=== PATIENT | female | born 1980 | race Caucasian/White ===

== ENCOUNTER → 2017-06-22 | Outpatient (CLI) | payer BC ==
--- NOTE | 2017-06-22 14:29 | US ---
EXAMINATION TYPE: US thyroid st tissue head/neck DATE OF EXAM: 06/22/2017 COMPARISON: Previous study dated 06/20/2016. CLINICAL HISTORY: Thyroid nodule E04.1. GLAND SIZE: Right Lobe: 4.1 x 0.9 x 1.3 cm Overall Parenchyma: homogenous Left Lobe: 3.9 x 1.4 x 1.1 cm Overall Parenchyma: homogeneous Isthmus Thickness: 0.5 cm NODULES RIGHT: # of nodules measured on right: 1 1. 0.8 X 0.5 x 0.8 cm hypoechoic mixed nodule at the lower pole with well-defined margins; . This nodule is wider than tall and shows intranodular vascularity. Prior size: 0.8 x 0.6 x 0.7 cm LEFT: # of nodules measured on left: 0 ISTHMUS: # of nodules measured in the isthmus: 0 Bilateral neck scanned, no evidence of lymphadenopathy. Nodule as described IMPRESSION: STABLE RIGHT-SIDED THYROID NODULE.
== END | disposition home or self-care (01) ==
LOC: RADUSWWP 13:58
PROVIDERS: ATTEND Family Medicine
DX: E04.1 Nontoxic single thyroid nodule (principal)
CPT/HCPCS: 76536

== ENCOUNTER 2019-11-11 11:40 | Emergency (ER) | payer BC ==
[2019-11-11] MEDS ORDERED: SODIUM CHLORIDE 0.9% 1,000 ML IV STA ×2 (12:26)
[2019-11-11] MEDS ORDERED: KETOROLAC 30 MG/ML 1 ML VIAL IVP STA (12:26)
[2019-11-11] MEDS ORDERED: ORPHENADRINE 30 MG/ML 2 ML VIAL IVP STA (12:27)
[2019-11-11 12:46] LABS: Basophils # (A) 0.1 k/uL (0-0.2); Basophils % (A) 0 %; Eosinophils # (A) 0.2 k/uL (0-0.7); Eosinophils % (A) 1 %; HCT 44.2 % (34.0-46.0); HGB 14.4 gm/dL (11.4-16.0); Lymphocytes # (A) 1.2 k/uL (1.0-4.8); Lymphocytes % (A) 8 %; MCH 31.5 pg (25.0-35.0); MCHC 32.7 g/dL (31.0-37.0); MCV 96.4 fL (80.0-100.0); Mean Platelet Volume 8.2; Monocytes # (A) 0.4 k/uL (0-1.0); Monocytes % (A) 3 %; Neutrophils % (A) 86 %; Platelet Count 269 k/uL (150-450); RBC 4.59 m/uL (3.80-5.40); RDW 12.4 % (11.5-15.5); WBC 15.1 k/uL (3.8-10.6)
[2019-11-11 12:57] LABS: ALT 39 U/L (4-34); AST 37 U/L (14-36); African American GFR (CKD) >90 (>60 ml/min/1.73 sqM); Albumin 4.7 g/dL (3.5-5.0); Alkaline Phosphatase 96 U/L (38-126); Anion Gap 13 mmol/L; Blood Urea Nitrogen 17 mg/dL (7-17); Calcium 10.4 mg/dL (8.4-10.2); Carbon Dioxide 22 mmol/L (22-30); Chloride 104 mmol/L (98-107); Glucose 123 mg/dL (74-99); Non-African American GFR(CKD) 81 (>60 ml/min/1.73 sqM); Potassium 4.6 mmol/L (3.5-5.1); Sodium 139 mmol/L (137-145); Total Bilirubin 0.7 mg/dL (0.2-1.3)
--- NOTE | 2019-11-11 13:06 | ED ---
Back Pain HPI - General Chief Complaint: Back Pain/Injury Stated Complaint: Back Pain Time Seen by Provider: 11/11/19 12:07 Source: patient, RN notes reviewed, old records reviewed Limitations: no limitations - History of Present Illness Initial Comments: Patient's a 38-year-old female. She presents today for chief complaint of left- sided rib and back pain. Symptoms starting after a week of coughing. She is sinus with bronchitis. Patient states she was started on azithromycin and steroids. Patient states that she is not able take antibiotic as she discussed this recently. Patient states that over the past day due to coughing started also spasming and*pain in her left rib area. Patient denies any specific fevers or chills. She reports that the cough has been mildly productive. - Related Data Previous Rx's Medication Instructions Recorded Cyclobenzaprine [Flexeril] 10 mg PO TID #15 tab 11/11/19 [facility]-Q[facility]-Elm 6.25-5-10Mg/5Ml 5 ml PO Q4H 3 Days #90 ml 11/11/19 [Phenergan VC with Codeine] methylPREDNISolone Dose Pack 4 mg PO DIRECTED #21 package 11/11/19 [Medrol Dose Pack] Allergies Allergy/AdvReac Type Severity Reaction Status Date / Time sulfamethoxazole Allergy Nausea Verified 11/11/19 12:01 [From Bactrim] trimethoprim [From Bactrim] Allergy Nausea Verified 11/11/19 12:01 Review of Systems ROS Statement: Those systems with pertinent positive or pertinent negative responses have been documented in the HPI. ROS Other: All systems not noted in ROS Statement are negative. Past Medical History Past Medical History: No Reported History History of Any Multi-Drug Resistant Organisms: None Reported Past Surgical History: Appendectomy Past Psychological History: No Psychological Hx Reported Smoking Status: Never smoker Past Alcohol Use History: Occasional Past Drug Use History: None Reported General Exam - General Exam Comments Initial Comments: 38-year-old female. Alert and oriented. No distress. Limitations: no limitations General appearance: alert, in no apparent distress Head exam: Present: atraumatic, normocephalic, normal inspection Eye exam: Present: normal appearance, PERRL, EOMI. Absent: scleral icterus, conjunctival injection, periorbital swelling ENT exam: Present: normal exam, mucous membranes moist Neck exam: Present: normal inspection. Absent: tenderness, meningismus, lymphadenopathy Respiratory exam: Present: normal lung sounds bilaterally. Absent: respiratory distress, wheezes, rales, rhonchi, stridor Cardiovascular Exam: Present: regular rate, normal rhythm, normal heart sounds. Absent: systolic murmur, diastolic murmur, rubs, gallop, clicks GI/Abdominal exam: Present: soft, normal bowel sounds. Absent: distended, tenderness, guarding, rebound, rigid Extremities exam: Present: normal inspection Back exam: Present: normal inspection, tenderness (Patient has some tenderness over the left ribs. Patient has spasming over the left-sided paraspinal muscle.) Neurological exam: Present: alert, oriented X3, CN II-XII intact Psychiatric exam: Present: normal affect, normal mood Skin exam: Present: warm, dry, intact, normal color. Absent: rash Course Vital Signs 11/11/19 11/11/19 11:59 14:11 Temperature 98.5 F 98.2 F Pulse Rate 83 81 Respiratory 16 18 Rate Blood Pressure 126/87 122/74 O2 Sat by Pulse 94 L 98 Oximetry Medical Decision Making - Medical Decision Making This is a 38-year-old female presents with left-sided rib pain. Symptoms after coughing for the past week after being diagnosed with bronchitis. At this time Patient has some left-sided paraspinal muscle tenderness. Full workup was o btained. Negative d-dimer and EKG. Chest x-ray was unremarkable. She a mild leukocytosis but has been receiving steroid injection. Patient advised to be discharged with a short course of muscle accident temperature medication. I discussed that she had any worsening symptoms she denies return for reevaluation. All questions were answered and return parameters were discussed. - Lab Data Result diagrams: 11/11/19 12:35 11/11/19 12:35 Lab Results 11/11/19 11/11/19 11/11/19 Range/Units 12:35 12:35 12:35 WBC 15.1 H (3.8-10.6) k/uL RBC 4.59 (3.80-5.40) m/uL Hgb 14.4 (11.4-16.0) gm/dL Hct 44.2 (34.0-46.0) % MCV 96.4 (80.0-100.0) fL MCH 31.5 (25.0-35.0) pg MCHC 32.7 (31.0-37.0) g/dL RDW 12.4 (11.5-15.5) % Plt Count 269 (150-450) k/uL Neutrophils % 86 % Lymphocytes % 8 % Monocytes % 3 % Eosinophils % 1 % Basophils % 0 % Neutrophils # 13.0 H (1.3-7.7) k/uL Lymphocytes # 1.2 (1.0-4.8) k/uL Monocytes # 0.4 (0-1.0) k/uL Eosinophils # 0.2 (0-0.7) k/uL Basophils # 0.1 (0-0.2) k/uL PT 9.7 (9.0-12.0) sec INR 0.9 (<1.2) APTT 22.3 (22.0-30.0) sec D-Dimer 0.26 (<0.60) mg/L FEU Sodium 139 (137-145) mmol/L Potassium 4.6 (3.5-5.1) mmol/L Chloride 104 (98-107) mmol/L Carbon Dioxide 22 (22-30) mmol/L Anion Gap 13 mmol/L BUN 17 (7-17) mg/dL Creatinine 0.90 (0.52-1.04) mg/dL Est GFR (CKD-EPI)AfAm >90 (>60 ml/min/1.73 sqM) Est GFR (CKD-EPI)NonAf 81 (>60 ml/min/1.73 sqM) Glucose 123 H (74-99) mg/dL Calcium 10.4 H (8.4-10.2) mg/dL Magnesium 2.0 (1.6-2.3) mg/dL Total Bilirubin 0.7 (0.2-1.3) mg/dL AST 37 H (14-36) U/L ALT 39 H (4-34) U/L Alkaline Phosphatase 96 (38-126) U/L Troponin I (0.000-0.034) ng/mL Total Protein 8.0 (6.3-8.2) g/dL Albumin 4.7 (3.5-5.0) g/dL 11/11/19 Range/Units 12:35 WBC (3.8-10.6) k/uL RBC (3.80-5.40) m/uL Hgb (11.4-16.0) gm/dL Hct (34.0-46.0) % MCV (80.0-100.0) fL MCH (25.0-35.0) pg MCHC (31.0-37.0) g/dL RDW (11.5-15.5) % Plt Count (150-450) k/uL Neutrophils % % Lymphocytes % % Monocytes % % Eosinophils % % Basophils % % Neutrophils # (1.3-7.7) k/uL Lymphocytes # (1.0-4.8) k/uL Monocytes # (0-1.0) k/uL Eosinophils # (0-0.7) k/uL Basophils # (0-0.2) k/uL PT (9.0-12.0) sec INR (<1.2) APTT (22.0-30.0) sec D-Dimer (<0.60) mg/L FEU Sodium (137-145) mmol/L Potassium (3.5-5.1) mmol/L Chloride (98-107) mmol/L Carbon Dioxide (22-30) mmol/L Anion Gap mmol/L BUN (7-17) mg/dL Creatinine (0.52-1.04) mg/dL Est GFR (CKD-EPI)AfAm (>60 ml/min/1.73 sqM) Est GFR (CKD-EPI)NonAf (>60 ml/min/1.73 sqM) Glucose (74-99) mg/dL Calcium (8.4-10.2) mg/dL Magnesium (1.6-2.3) mg/dL Total Bilirubin (0.2-1.3) mg/dL AST (14-36) U/L ALT (4-34) U/L Alkaline Phosphatase (38-126) U/L Troponin I <0.012 (0.000-0.034) ng/mL Total Protein (6.3-8.2) g/dL Albumin (3.5-5.0) g/dL 11/11/19 13:05 EKG performed at 1250 shows sinus x-ray, otherwise normal EKG. Ventricular rate of 101 beats minute. Verbal 154 ms. QS duration 74 ms repeat continue to see 3:30/4 mL 4 ms. - Radiology Data Radiology results: report reviewed Rib x-ray shows no acute displaced rib fracture or chronic illnesses deformity. Chest x-rays negative for any acute cardiopulmonary process. Disposition Clinical Impression: Cough, Spasm of thoracic back muscle Disposition: HOME SELF-CARE Condition: Good Instructions (If sedation given, give patient instructions): Muscle Spasm (ED) Additional Instructions: Patient advised to take antibiotic and steroids as prescribed. Using a cough syrup and muscle x-rays as directed. Have close follow-up with your primary care physician. Return to the emergency department if any alarming signs or symptoms occur. Prescriptions: Cyclobenzaprine [Flexeril] 10 mg PO TID #15 tab methylPREDNISolone Dose Pack [Medrol Dose Pack] 4 mg PO DIRECTED #21 package [facility] 6.25-5-10Mg/5Ml [Phenergan VC with Codeine] 5 ml PO Q4H 3 Days #90 ml Is patient prescribed a controlled substance at d/c from ED?: Yes When asked, does pt state using other controlled substances?: No If prescribed controlled substance>3 days was MAPS reviewed?: Yes If opioid is for acute pain is fill amount 7 days or less?: Yes If Rx opioid, was Start Talking consent form obtained?: Yes Referrals: Catracho Sevilla DO [Primary Care Provider] - 1-2 days Time of Disposition: 13:42
[2019-11-11 13:07] LABS: D-Dimer 0.26 mg/L FEU (<0.60); INR 0.9 (<1.2); Partial Thromboplastin Time 22.3 sec (22.0-30.0); Prothrombin Time 9.7 sec (9.0-12.0)
--- NOTE | 2019-11-11 13:19 | XR ---
EXAMINATION TYPE: XR ribs LT DATE OF EXAM: 11/11/2019 COMPARISON: NONE HISTORY: Coughing and left rib pain TECHNIQUE: 2 views of the left ribs were obtained FINDINGS: No acute displaced fracture of the left ribs is seen. No focal consolidation of the left isabella ng. No chronic healed left rib fracture deformity. Tear soft tissues are unremarkable. IMPRESSION: No acute displaced left rib fracture or chronic healed fracture deformity.
--- NOTE | 2019-11-11 13:20 | XR ---
EXAMINATION TYPE: XR chest 2V DATE OF EXAM: 11/11/2019 COMPARISON: NONE HISTORY: Cough TECHNIQUE: Frontal and lateral views of the chest are obtained. FINDINGS: There is no focal air space opacity, pleural effusion, or pneumothorax seen. The cardiac silhouette size is within normal limits. The osseous structures are intact. IMPRESSION: No acute cardiopulmonary process.
[2019-11-11 14:12] VITALS: BP 122/74; PULSE 81; RESP 18; TEMP 98.2
== END 2019-11-11 14:12 | disposition home or self-care (01) ==
LOC: EC 11:40
DX: M62.830 Muscle spasm of back (principal); R05 Cough; R07.81 Pleurodynia; D72.829 Elevated white blood cell count, unspecified; Z87.09 Personal history of other diseases of the respiratory system; Z88.2 Allergy status to sulfonamides; Z88.1 Allergy status to other antibiotic agents
CPT/HCPCS: 36415; 85379; 80053; 83735; 84484; 85025; 85610; 85730; 71100; 71046; 99284; 96374; 96375; 96361; J2360; J1885

== ENCOUNTER 2021-09-06 07:59 | Day surgery (SDC) | payer BC ==
[2021-09-04 11:40] VITALS: BMI 28.9
[~2021-09-06 07:59] MED LIST: LACTATED RINGERS 1,000 ML IV SCH
[2021-09-06 08:46] VITALS: TEMP 96.1
[2021-09-06] MEDS ORDERED: PROPOFOL 10 MG/ML 20 ML VIAL IV ONE (08:56)
[2021-09-06] MEDS ORDERED: LIDOCAINE 1% INJ 10MG/ML (20 ML MDV) ONE (08:56)
--- NOTE | 2021-09-06 08:58 | P.HPIHPCON ---
History of Present Illness H&P Date: 09/06/21 40-year-old female presents today for upper endoscopy secondary to reflux. She states that she had reflux for the past year but recently it has worsened. She complains of nausea and vomiting in the morning. She has started omeprazole with some success. She has never had an upper endoscopy.. Consent for Procedure: I have explained the operation/procedure to the patient, including the risks, benefits, side effects, alternative therapies (including not receiving the pr oposed treatment or service), the likelihood of the patient achieving his/her goals, and potential recuperation problems for the procedure/sedation/analgesia, as well as any blood products, if indicated. I also explained to the patient the risks, benefits and side effects of the alternatives, as well as the risks related to not receiving the proposed procedure, care, treatment, or services. - Review of Systems All systems: negative Past Medical History Past Medical History: GERD/Reflux History of Any Multi-Drug Resistant Organisms: None Reported Past Surgical History: Appendectomy Past Anesthesia/Blood Transfusion Reactions: Motion Sickness Smoking Status: Never smoker - Past Family History Mother Family Medical History: Cancer Medications and Allergies Home Medications Medication Instructions Recorded Confirmed Type methylPREDNISolone Dose Pack 4 mg PO DIRECTED #21 package 11/11/19 09/06/21 Rx [Medrol Dose Pack] Naproxen 250 mg PO 09/06/21 History Allergies Allergy/AdvReac Type Severity Reaction Status Date / Time sulfamethoxazole Allergy Nausea Verified 09/06/21 08:48 [From Bactrim] trimethoprim [From Bactrim] Allergy Nausea Verified 09/06/21 08:48 Surgical - Exam Osteopathic Statement: *. No significant issues noted on an osteopathic structural exam other than those noted in the History and Physical/Consult. Vital Signs Temp Pulse Resp BP Pulse Ox 96.1 F L 92 16 119/80 97 09/06/21 08:46 09/06/21 08:46 09/06/21 08:46 09/06/21 08:46 09/06/21 08:46 - General well nourished, no distress - ENT normal mucosa, no hearing loss - Neck trachea midline - Respiratory normal respiratory effort - Abdomen Abdomen: soft, non tender Assessment and Plan Plan: 40-year-old female with GERD. Plan is for upper endoscopy. Risks, benefits and alternatives were provided to the patient. She did provide consent. Further recommendations after procedure.
--- NOTE | 2021-09-06 09:06 | P.PCN ---
Date of Procedure: 09/06/21 Preoperative Diagnosis: GERD Postoperative Diagnosis: Gastritis Hiatal hernia Procedure(s) Performed: EGD with biopsy Anesthesia: MAC Surgeon: Naty Jacob Pathology: other (Biopsies of duodenum, antrum, esophagus) Condition: stable Disposition: same day Indications for Procedure: 40-year-old female with GERD that has been worsening recently. Plan is for upper endoscopy. Risks, benefits and alternatives were provided to the patient. She did provide consent prior to attending the endoscopy suite. Operative Findings: Hiatal hernia Gastritis Description of Procedure: The patient was brought to the endoscopy suite and placed in left lateral de cubitus position and adequate sedation was achieved using conscious sedation. A bite block was placed and endoscope was placed in the oropharynx and advanced under endoscopic visualization. The endoscope was advanced through the esophagus into the stomach, through the gastric antrum and into the pylorus. The third portion of duodenum was visualized. The endoscope was then slowly withdrawn. The first portion of the duodenum was noted to have inflammatory changes. Biopsies were taken. The antrum was noted to have inflammatory changes. Biopsies were taken. The gastric body distended normally and the gastric folds appeared normal and flattened with insufflation. A retroflexed view of the fundus and GE junction revealed a mild hiatal hernia. The esophagus appeared endoscopically normal. Biopsies were taken. Excess air was removed and the scope was withdrawn and the procedure was completed. The patient was then sent to PACU in stable condition.
[2021-09-06 09:25] VITALS: BP 129/92; PULSE 76; RESP 16
== END 2021-09-06 09:46 | disposition home or self-care (01) ==
LOC: ORWHC2ENDO 07:59
PROVIDERS: ATTEND Surgery
DX: K29.50 Unspecified chronic gastritis without bleeding (principal); K44.9 Diaphragmatic hernia without obstruction or gangrene; K21.00 Gastro-esophageal reflux disease with esophagitis, without bleeding; Z88.2 Allergy status to sulfonamides; Z80.9 Family history of malignant neoplasm, unspecified
CPT/HCPCS: 81025; 88305; 43239; J2001; J2704

== ENCOUNTER 2024-08-09 08:45 | Inpatient (IN) | payer BC ==
--- NOTE | 2024-08-09 09:19 | ED ---
General Adult HPI - General Chief complaint: Abdominal Pain Stated complaint: vomitting Time Seen by Provider: 08/09/24 08:54 Source: patient Mode of arrival: ambulatory Limitations: no limitations - History of Present Illness Initial comments: Dictation was produced using [employer] dictation software. please excuse any grammatical, word or spelling errors. Chief Complaint: 43-year-old female presents with abdominal pain History of Present Illness: Patient is a 43-year-old female presents to the emergency department with abdominal pain patient states that her symptoms really started escalating last night. Patient has been having symptoms for the last 2 weeks. Has been having worsening nausea and vomiting. Patient is alcoholic drinks daily. Her drink of choice is typically vodka. Denies any fever chills or night sweats. The ROS documented in this emergency department record has been reviewed and confirmed by me. Those systems with pertinent positive or negative responses have been documented in the HPI. All other systems are other negative and/or noncontributory. - Related Data Home Medications Medication Instructions Recorded Confirmed Famotidine [Pepcid] 20 mg PO HS 08/09/24 08/09/24 Multivitamins, Thera [Multivitamin 1 tab PO DAILY 08/09/24 08/09/24 (formulary)] Allergies Allergy/AdvReac Type Severity Reaction Status Date / Time sulfamethoxazole Allergy Severe Verified 08/09/24 11:26 [From Bactrim] migraines, neck pain, stomach pain trimethoprim [From Bactrim] Allergy Severe Verified 08/09/24 11:26 migraines, neck pain, stomach pain Review of Systems ROS Statement: Those systems with pertinent positive or pertinent negative responses have been documented in the HPI. ROS Other: All systems not noted in ROS Statement are negative. Past Medical History Past Medical History: GERD/Reflux Additional Past Medical History / Comment(s): hernia History of Any Multi-Drug Resistant Organisms: None Reported Past Surgical History: Appendectomy Past Anesthesia/Blood Transfusion Reactions: Motion Sickness Past Psychological History: No Psychological Hx Reported Smoking Status: Never smoker Past Alcohol Use History: Abuse, Daily, Heavy Past Drug Use History: None Reported - Past Family History Mother Family Medical History: Cancer General Exam - General Exam Comments Initial Comments: PHYSICAL EXAM: General Impression: Alert and oriented x3, not in acute distress, tremulous HEENT: Normocephalic atraumatic, extra-ocular movements intact, pupils equal and reactive to light bilaterally, mucous membranes moist. Cardiovascular: Heart regular rate and rhythm Chest: Able to complete full sentences, no retractions, no tachypnea Abdomen: abdomen soft, n palpatory tenderness to the lower abdomen r, non- distended, no organomegaly Musculoskeletal: Pulses present and equal in all extremities, no peripheral edema Motor: no focal deficits noted Neurological: CN II-XII grossly intact, no focal motor or sensory deficits noted Skin: Intact with no visualized rashes Psych: Normal affect and mood Limitations: no limitations Course Vital Signs 08/09/24 08:49 Temperature 98.4 F Pulse Rate 125 H Respiratory 20 Rate Blood Pressure 122/73 O2 Sat by Pulse 98 Oximetry EKG Findings - EKG Comments: EKG Findings:: My EKG interpretation: Ventricular rate 121, sinus tachycardia,. 129, QRS 74, QTc 410. No AR prolongation, no QTC prolongation, no ST or T-wave changes noted. EKG compared to November 11, 2019 showing no changes. Overall, this EKG is unremarkable Medical Decision Making - Medical Decision Making Was pt. sent in by a medical professional or institution (, PA, HOT BILLET SHEAR OPERATOR, urgent care, hospital, or jail...) When possible be specific @ -No Did you speak to anyone other than the patient for history (EMS, parent, family, police, friend...)? What history was obtained from this source @ -No Did you review nursing and triage notes (agree or disagree)? Why? @ -I reviewed and agree with nursing and triage notes Were old charts reviewed (outside hosp., previous admission, EMS record, old EKG, old radiological studies, urgent care reports/EKG's, jail records)? Report findings @ -No old charts were reviewed Differential Diagnosis (chest pain, altered mental status, abdominal pain women, abdominal pain men, vaginal bleeding, musculoskeletal, weakness, fever, dyspnea, syncope, headache, dizziness, GI bleed, back pain, seizure, CVA, palpatations, mental health)? @ -Differential Abdominal Pain Women: Appendicitis, Cholecystitis, diverticulosis, ischemic bowel, pancreatitis, hepatitis, UTI, gastroenteritis, AAA, incarcerated hernia, bowel obstruction, constipation, inflammatory bowel, hepatitis, peptic ulcer disease, splenic infarction, perforated viscus, vulvitis, ovarian torsion, PID, kidney stone, placenta abruption, this is not meant to be an all-inclusive list EKG interpreted by me (3pts min.). @ -See above X-rays interpreted by me (1pt min.). @ -None done CT interpreted by me (1pt min.). @ -CT of the ab pelvis shows no acute processes U/S interpreted by me (1pt. min.). @ -None done What testing was considered but not performed or refused? (CT, X-rays, U/S, labs)? Why? @ -None What meds were considered but not given or refused? Why? @ -None Was smoking cessation discussed for >3mins.? @ -No Were there social determinants of health that impacted care today? How? (Homelessness, low income, unemployed, alcoholism, drug addiction, transportation, low edu. Level, literacy, decrease access to med. care, [facility], rehab)? @ -No Was there de-escalation of care discussed even if they declined (Discuss DNR or withdrawal of care, Hospice)? DNR status @ -No What co-morbidities impacted this encounter? (DM, HTN, Smoking, COPD, CAD, Cancer, CVA, ARF, Chemo, Hep., AIDS, mental health diagnosis, sleep apnea, morbid obesity)? @ -None Was patient admitted / discharged? Hospital course, mention meds given and route, prescriptions, significant lab abnormalities, going to OR and other pertinent info. @ -43-year-old female presents emergency department with chief complaint of abd ominal pain. Vital signs upon arrival shows tachycardia 125. Patient is withdrawing at the bedside. Her CIWA score is 9. Laboratory evaluation obtained. CBC is unremarkable. Coag panel is negative. Lactic acidosis severely elevated at 8.6. Magnesium 1.0. Patient given fluids and Parenteau m agnesium. Patient reevaluated at bedside 11:52 AM with improvement of symptoms. Patient will be admitted for medical monitoring, EtOH withdrawal treatment. Case discussed with Dr. Catracho Sevilla for admission Did you discuss the management of the patient with other professionals (professionals i.e. , PA, HOT BILLET SHEAR OPERATOR, lab, RT, psych nurse, social security benefits interviewer, analysis specialist, teacher, chief technology officer, family preservation caseworker)? Give summary @ -See above Was critical care preformed (if so, how long)? @ -No Undiagnosed new problem with uncertain prognosis? @ -No Drug Therapy requiring intensive monitoring for toxicity (Heparin, Nitro, Insulin, Cardizem)? @ -No Were any procedures done? @ -No Diagnosis/symptom? Acute, or Chronic, or Acute on Chronic? Uncomplicated (without systemic symptoms) or Complicated (systemic symptoms)? @ -Alcohol withdrawal Side effects of treatment? @ -No Exacerbation, Progression, or Severe Exacerbation? @ -No Poses a threat to life or bodily function? How? (Chest pain, [place], [place], pneumonia, PE, COPD, DKA, ARF, appy, cholecystitis, CVA, Diverticulitis, Homicidal, Suicidal, threat to staff... and all critical care pts) @ -No - Lab Data Result diagrams: 08/09/24 09:45 08/09/24 09:45 Lab Results 08/09/24 08/09/24 08/09/24 Range/Units 09:45 09:45 09:45 WBC 8.4 (3.8-10.6) k/uL RBC 4.00 (3.80-5.40) m/uL Hgb 14.8 (11.4-16.0) gm/dL Hct 44.2 (34.0-46.0) % MCV 110.3 H (80.0-100.0) fL MCH 36.9 H (25.0-35.0) pg MCHC 33.4 (31.0-37.0) g/dL RDW 14.0 (11.5-15.5) % Plt Count 188 (150-450) k/uL MPV 8.6 Macrocytosis Marked A PT 12.4 (10.0-12.5) sec INR 1.2 H (<1.2) APTT 24.4 (22.0-30.0) sec Sodium 137 (137-145) mmol/L Potassium 4.0 (3.5-5.1) mmol/L Chloride 94 L (98-107) mmol/L Carbon Dioxide 24 (22-30) mmol/L Anion Gap 19 mmol/L BUN 5 L (7-17) mg/dL Creatinine 0.63 (0.52-1.04) mg/dL Est GFR (CKD-EPI)AfAm >90 (>60 ml/min/1.73 sqM) Est GFR (CKD-EPI)NonAf >90 (>60 ml/min/1.73 sqM) Glucose 155 H (74-99) mg/dL Plasma Lactic Acid Kevin (0.7-2.0) mmol/L Calcium 10.7 H (8.4-10.2) mg/dL Magnesium 1.0 L (1.6-2.3) mg/dL Total Bilirubin 3.8 H (0.2-1.3) mg/dL AST 237 H (14-36) U/L ALT 61 H (4-34) U/L Alkaline Phosphatase 198 H (38-126) U/L Total Protein 7.8 (6.3-8.2) g/dL Albumin 4.4 (3.5-5.0) g/dL Lipase 275 (23-300) U/L Serum Alcohol <10 mg/dL 08/09/24 Range/Units 09:45 WBC (3.8-10.6) k/uL RBC (3.80-5.40) m/uL Hgb (11.4-16.0) gm/dL Hct (34.0-46.0) % MCV (80.0-100.0) fL MCH (25.0-35.0) pg MCHC (31.0-37.0) g/dL RDW (11.5-15.5) % Plt Count (150-450) k/uL MPV Macrocytosis PT (10.0-12.5) sec INR (<1.2) APTT (22.0-30.0) sec Sodium (137-145) mmol/L Potassium (3.5-5.1) mmol/L Chloride (98-107) mmol/L Carbon Dioxide (22-30) mmol/L Anion Gap mmol/L BUN (7-17) mg/dL Creatinine (0.52-1.04) mg/dL Est GFR (CKD-EPI)AfAm (>60 ml/min/1.73 sqM) Est GFR (CKD-EPI)NonAf (>60 ml/min/1.73 sqM) Glucose (74-99) mg/dL Plasma Lactic Acid Kevin 8.6 H* (0.7-2.0) mmol/L Calcium (8.4-10.2) mg/dL Magnesium (1.6-2.3) mg/dL Total Bilirubin (0.2-1.3) mg/dL AST (14-36) U/L ALT (4-34) U/L Alkaline Phosphatase (38-126) U/L Total Protein (6.3-8.2) g/dL Albumin (3.5-5.0) g/dL Lipase (23-300) U/L Serum Alcohol mg/dL Disposition Clinical Impression: Alcohol withdrawal Disposition: ADMITTED IP TO THIS [facility] Condition: Fair Referrals: Catracho Sevilla DO [Primary Care Provider] - 1-2 days Decision Time: 11:53
[2024-08-09] MEDS: ONDANSETRON 4 MG/2 ML VIAL IVP STA (09:39)
[2024-08-09] MEDS: SODIUM CHLORIDE 0.9% 1,000 ML IV STA (09:40)
[2024-08-09] MEDS: MORPHINE SULFATE 4 MG/ML SYRINGE IVP PRN (09:47)
[2024-08-09 10:19] LABS: Basophils % (A) 1 %; Eosinophils # (A) 0.1 k/uL (0-0.7); Eosinophils % (A) 1 %; HCT 44.2 % (34.0-46.0); HGB 14.8 gm/dL (11.4-16.0); Lymphocytes # (A) 1.1 k/uL (1.0-4.8); Lymphocytes % (A) 13 %; MCH 36.9 pg (25.0-35.0); MCHC 33.4 g/dL (31.0-37.0); MCV 110.3 fL (80.0-100.0); Macrocytosis Marked; Mean Platelet Volume 8.6; Monocytes # (A) 0.5 k/uL (0-1.0); Monocytes % (A) 6 %; Neutrophils # (A) 6.6 k/uL (1.3-7.7); Neutrophils % (A) 79 %; Platelet Count 188 k/uL (150-450); WBC 8.4 k/uL (3.8-10.6)
[2024-08-09 10:30] LABS: AST 237 U/L (14-36); African American GFR (CKD) >90 (>60 ml/min/1.73 sqM); Albumin 4.4 g/dL (3.5-5.0); Alcohol <10 mg/dL; Alkaline Phosphatase 198 U/L (38-126); Anion Gap 19 mmol/L; Blood Urea Nitrogen 5 mg/dL (7-17); Calcium 10.7 mg/dL (8.4-10.2); Carbon Dioxide 24 mmol/L (22-30); Chloride 94 mmol/L (98-107); Glucose 155 mg/dL (74-99); Lipase 275 U/L (23-300); Non-African American GFR(CKD) >90 (>60 ml/min/1.73 sqM); Sodium 137 mmol/L (137-145); Total Bilirubin 3.8 mg/dL (0.2-1.3); Total Protein 7.8 g/dL (6.3-8.2)
[2024-08-09 10:35] LABS: INR 1.2 (<1.2); Partial Thromboplastin Time 24.4 sec (22.0-30.0); Prothrombin Time 12.4 sec (10.0-12.5)
[2024-08-09 10:42] LABS: ALT 61 U/L (4-34)
[2024-08-09] MEDS ORDERED: LORazepam 2 MG/ML INJ IV PRN ×3 (10:49)
--- NOTE | 2024-08-09 10:57 | CT ---
EXAMINATION TYPE: CT abdomen pelvis w con CT DLP: 853.4 mGycm, Automated exposure control for dose reduction was used. DATE OF EXAM: 08/09/2024 10:45 AM COMPARISON: None CLINICAL INDICATION:Female, 43 years old with history of LLQ abdominal pain; LLQ abdominal pain TECHNIQUE: Standard CT of the abdomen and pelvis following the administration of 100 cc of Isovue 3 00 IV contrast material. Coronal and sagittal reformats were performed. FINDINGS: LOWER CHEST: Posterior dependent subsegmental atelectasis is noted. ABDOMEN LIVER: Enlarged and diffusely hypoattenuating. Measures 20.9 cm in CC dimension. GALLBLADDER AND BILE DUCTS: Layering increased densities within the lumen consistent with gallstones are present. No biliary ductal dilatation. PANCREAS: Unremarkable. SPLEEN: Unremarkable. ADRENAL GLANDS: Unremarkable. KIDNEYS AND URETERS: No evidence of hydronephrosis or renal calculus. The kidneys enhance symmetrical ly. Contrast is demonstrated within both collecting systems on the delayed phase. PELVIS BLADDER: Incompletely distended but grossly unremarkable. REPRODUCTIVE: Unremarkable. ABDOMEN & PELVIS STOMACH AND BOWEL: Stomach and duodenum are unremarkable. No focal bowel wall thickening or surroundi ng inflammatory changes. No diverticulosis identified. No evidence of bowel obstruction. Possible donna endectomy changes. PERITONEUM: No evidence of pneumoperitoneum or free fluid. VASCULATURE: No evidence of aortic aneurysm. MUSCULOSKELETAL: No acute osseous abnormalities LYMPH NODES: No gross evidence for lymphadenopathy. SOFT TISSUE/ABDOMINAL WALL: Unremarkable IMPRESSION: 1. No acute abdominal/pelvic process. 2. Cholelithiasis. 3. Hepatomegaly with marked steatosis.
[2024-08-09] MEDS: MAGNESIUM SULFATE-D5W PMX 1 GM in DEXTROSE/WATER 1 100ML.BAG IVPB SCH (11:23)
[2024-08-09] MEDS ORDERED: NALOXONE 0.4 MG/ML 1 ML VIAL IV PRN (11:48)
[2024-08-09] MEDS: SODIUM CHLORIDE 0.9% 1,000 ML IV SCH (12:42)
[2024-08-09 14:29] LABS: Appearance,Urine Clear (Clear); Bilirubin,Urine 1+ (Negative); Blood,Urine Negative (Negative); Color,Urine Yellow; Glucose,Urine (UA) Negative (Negative); Ketones,Urine Trace (Negative); Leukocyte Esterase,Urine Negative (Negative); Nitrite,Urine Negative (Negative); Protein,Urine Trace (Negative)
[2024-08-09] MEDS: ONDANSETRON 4 MG/2 ML VIAL IVP PRN (15:04)
[2024-08-09 15:05] LABS: Specific Gravity,Urine >1.050 (1.001-1.035)
[2024-08-10 10:48] LABS: ALT 45 U/L (4-34); AST 158 U/L (14-36); African American GFR (CKD) >90 (>60 ml/min/1.73 sqM); Albumin 3.7 g/dL (3.5-5.0); Albumin/Globulin Ratio 1.2; Alkaline Phosphatase 151 U/L (38-126); Anion Gap 9 mmol/L; Blood Urea Nitrogen 4 mg/dL (7-17); Calcium 9.2 mg/dL (8.4-10.2); Carbon Dioxide 28 mmol/L (22-30); Chloride 98 mmol/L (98-107); Glucose 126 mg/dL (74-99); Non-African American GFR(CKD) >90 (>60 ml/min/1.73 sqM); Potassium 3.8 mmol/L (3.5-5.1); Sodium 135 mmol/L (137-145); Total Bilirubin 4.4 mg/dL (0.2-1.3); Total Protein 6.7 g/dL (6.3-8.2)
[2024-08-10] MEDS: MULTIVITAMINS, THERA 1 EACH TAB PO SCH (11:13)
[2024-08-10] MEDS: FOLIC ACID 1 MG TAB PO SCH (11:13)
[2024-08-10] MEDS: THIAMINE 100 MG TAB PO SCH (11:13)
--- NOTE | 2024-08-10 14:44 | P.HPIM ---
History of Present Illness H&P Date: 08/10/24 Chief Complaint: Abdominal pain, EtOH abuse, DTs 43-year-old female with past medical history significant for gastroesophageal reflux disease, daily alcohol abuse and multiple other medical issues presented to the ER with complaints of abdominal pain progressing over the last couple weeks Chu by nausea and vomiting. Patient confirms daily vodka intake, 4-5 drinks nightly. Reports work stress. any chest pain, palpitations or shortness of breath. On admission, tachycardic, and active DTs, CIWA score 9, lactic acid 8.6 resolved with IV fluid hydration, early 1.8, magnesium 1, serum alcohol less than 10. UA reported 1+ bilirubin, trace ketones. T. bili 3.8, AST 237, ALT 61, alk phos 198, lipase 275. Glucose 155. Afebrile, WBC 8.4, hemoglobin 14.8, MCV 110, platelets 188, INR 1.2, sodium 137, potassium 4, renal function stable. EKG reported sinus tachycardia. CT of abdomen pelvis reported no acute abdominal/pelvic process, cholelithiasis, hepatomegaly with marked steatosis. Review of Systems ROS Statement: Those systems with pertinent positive or pertinent negative responses have been documented in the HPI. ROS Other: All systems not noted in ROS Statement are negative. Past Medical History Past Medical History: GERD/Reflux Additional Past Medical History / Comment(s): hernia History of Any Multi-Drug Resistant Organisms: None Reported Past Surgical History: Appendectomy Past Anesthesia/Blood Transfusion Reactions: Motion Sickness Past Psychological History: No Psychological Hx Reported Smoking Status: Never smoker Past Alcohol Use History: Abuse, Daily, Heavy Past Drug Use History: None Reported - Past Family History Mother Family Medical History: Cancer Medications and Allergies Home Medications Medication Instructions Recorded Confirmed Type Famotidine [Pepcid] 20 mg PO HS 08/09/24 08/09/24 History Multivitamins, Thera [Multivitamin 1 tab PO DAILY 08/09/24 08/09/24 History (formulary)] Allergies Allergy/AdvReac Type Severity Reaction Status Date / Time sulfamethoxazole Allergy Severe Verified 08/09/24 11:26 [From Bactrim] migraines, neck pain, stomach pain trimethoprim [From Bactrim] Allergy Severe Verified 08/09/24 11:26 migraines, neck pain, stomach pain Physical Exam Vitals: Vital Signs Temp Pulse Pulse Resp BP BP Pulse Ox 08/10/24 08:00 98.2 F 95 16 123/84 90 L 08/10/24 07:24 96 18 131/85 97 08/10/24 02:36 93 18 121/84 97 08/10/24 01:10 96 18 121/80 97 08/10/24 00:02 98.2 F 93 18 123/76 96 08/09/24 23:06 98.1 F 95 18 115/75 97 08/09/24 20:10 98.4 F 103 H 18 130/87 97 08/09/24 12:53 97.8 F 103 H 18 121/75 94 L PHYSICAL EXAM: VITAL SIGNS: [As above] GENERAL: Alert and oriented x 3, sitting up on stretcher, HEENT: Normocephalic, atraumatic, conjunctivae normal. eyes normal. NECK: Supple, no JVD. No thyroid enlargement. No LNs CARDIOVASCULAR: S1, S2 regular. No murmur RESPIRATION: Unlabored, equal air entry, essentially clear to auscultation bilateral bases diminished. ABDOMEN: Soft, nondistended, nontender . No guarding. no masses palpable. No ascites, No hepatosplenomegaly.+BS LEGS: No edema. no swelling NERVOUS SYSTEM: Cranial N 2-12 grossly normal. Strength and sensation grossly intact. Tremulous Skin: Warm and dry, no rash Results CBC & Chem 7: 08/09/24 09:45 08/10/24 05:39 Labs: Abnormal Lab Results - Last 24 Hours (Table) 08/09/24 08/09/24 08/09/24 Range/Units 09:45 09:45 09:45 MCV 110.3 H (80.0-100.0) fL MCH 36.9 H (25.0-35.0) pg Macrocytosis Marked A INR 1.2 H (<1.2) Chloride 94 L (98-107) mmol/L BUN 5 L (7-17) mg/dL Glucose 155 H (74-99) mg/dL Plasma Lactic Acid Kevin (0.7-2.0) mmol/L Calcium 10.7 H (8.4-10.2) mg/dL Magnesium 1.0 L (1.6-2.3) mg/dL Total Bilirubin 3.8 H (0.2-1.3) mg/dL AST 237 H (14-36) U/L ALT 61 H (4-34) U/L Alkaline Phosphatase 198 H (38-126) U/L Ur Specific [place] (1.001-1.035) Urine Protein (Negative) Urine Ketones (Negative) Urine Bilirubin (Negative) 08/09/24 08/09/24 08/09/24 Range/Units 09:45 13:16 14:10 MCV (80.0-100.0) fL MCH (25.0-35.0) pg Macrocytosis INR (<1.2) Chloride (98-107) mmol/L BUN (7-17) mg/dL Glucose (74-99) mg/dL Plasma Lactic Acid Kevin 8.6 H* 4.9 H* (0.7-2.0) mmol/L Calcium (8.4-10.2) mg/dL Magnesium (1.6-2.3) mg/dL Total Bilirubin (0.2-1.3) mg/dL AST (14-36) U/L ALT (4-34) U/L Alkaline Phosphatase (38-126) U/L Ur Specific [place] >1.050 H (1.001-1.035) Urine Protein Trace H (Negative) Urine Ketones Trace H (Negative) Urine Bilirubin 1+ H (Negative) 08/09/24 08/09/24 08/09/24 Range/Units 16:09 19:09 22:27 MCV (80.0-100.0) fL MCH (25.0-35.0) pg Macrocytosis INR (<1.2) Chloride (98-107) mmol/L BUN (7-17) mg/dL Glucose (74-99) mg/dL Plasma Lactic Acid Kevin 4.3 H* 4.4 H* 2.5 H* (0.7-2.0) mmol/L Calcium (8.4-10.2) mg/dL Magnesium (1.6-2.3) mg/dL Total Bilirubin (0.2-1.3) mg/dL AST (14-36) U/L ALT (4-34) U/L Alkaline Phosphatase (38-126) U/L Ur Specific [place] (1.001-1.035) Urine Protein (Negative) Urine Ketones (Negative) Urine Bilirubin (Negative) 08/10/24 Range/Units 02:11 MCV (80.0-100.0) fL MCH (25.0-35.0) pg Macrocytosis INR (<1.2) Chloride (98-107) mmol/L BUN (7-17) mg/dL Glucose (74-99) mg/dL Plasma Lactic Acid Kevin 3.5 H* (0.7-2.0) mmol/L Calcium (8.4-10.2) mg/dL Magnesium (1.6-2.3) mg/dL Total Bilirubin (0.2-1.3) mg/dL AST (14-36) U/L ALT (4-34) U/L Alkaline Phosphatase (38-126) U/L Ur Specific [place] (1.001-1.035) Urine Protein (Negative) Urine Ketones (Negative) Urine Bilirubin (Negative) Assessment and Plan Assessment: Abdominal pain secondary to daily alcohol abuse, DTs Hyperbilirubinemia with elevated LFTs Lactic acidosis, resolved with IV fluid hydration Hypomagnesemia Cholelithiasis Hepatomegaly, marked steatosis Gastroesophageal reflux disease Plan: Continue on current medication regimen ,monitoring and symptomatic treatment. Attain IV fluid hydration, CIWA protocol-current CIWA score 3. Alcohol abstinence reinforced. Repeat T. bili increased, continue monitoring ,repeat in a.m. Community rehab resources discussed, patient currently declining-states she would like to try on her own. The impression and plan of care has been dictated as directed. : I performed a history and examination of this patient, discussed the same with the dictator. I agree with the dictator's note ,documented as a scribe. Any additional findings or plans will be noted.
[2024-08-10] MEDS: FAMOTIDINE 20 MG TAB PO SCH (21:57)
[2024-08-11 07:34] VITALS: BP 128/79; PULSE 93; RESP 16; TEMP 98
[2024-08-11 09:30] LABS: ALT 39 U/L (8-44); AST 150 U/L (13-35); Albumin 3.3 g/dL (3.8-4.9); Albumin/Globulin Ratio 1.32 Ratio (1.60-3.17); Alkaline Phosphatase 140 U/L (41-126); BUN/Creat Ratio 6.86 Ratio (12.00-20.00); Blood Urea Nitrogen 4.8 mg/dL (9.0-27.0); Calcium 8.8 mg/dL (8.7-10.3); Carbon Dioxide 26.7 mmol/L (21.6-31.8); Chloride 102 mmol/L (96-109); Globulin 2.5 g/dL (1.6-3.3); Glucose 92 mg/dL (70-110); Potassium 3.8 mmol/L (3.5-5.5); Sodium 139 mmol/L (135-145); Total Bilirubin 3.4 mg/dL (0.3-1.2); Total Protein 5.8 g/dL (6.2-8.2)
--- NOTE | 2024-08-11 10:13 | P.DS ---
Providers Date of admission: 08/09/24 11:50 Expected date of discharge: 08/11/24 Attending physician: Catracho Sevilla Primary care physician: Catracho Sevilla [facility] Course: Abdominal pain secondary to daily alcohol abuse, DTs Hyperbilirubinemia ,elevated LFTs Lactic acidosis, resolved with IV fluid hydration Hypomagnesemia,resolved Cholelithiasis,further follow-up in clinic with PCP Hepatomegaly, marked steatosis Gastroesophageal reflux disease Hospital course: 43-year-old female with past medical history significant for gastroesophageal reflux disease, daily alcohol abuse and multiple other medical issues presented to the ER with complaints of abdominal pain progressing over the last couple weeks Chu by nausea and vomiting. Patient confirms daily vodka intake, 4-5 drinks nightly. Reports work stress. any chest pain, palpitations or shortness of breath. On admission, tachycardic, and active DTs, CIWA score 9, lactic acid 8.6 resolved with IV fluid hydration, early 1.8, magnesium 1, serum alcohol less than 10. UA reported 1+ bilirubin, trace ketones. T. bili 3.8, AST 237, ALT 61, alk phos 198, lipase 275. Glucose 155. Afebrile, WBC 8.4, hemoglobin 14.8, MCV 110, platelets 188, INR 1.2, sodium 137, potassium 4, renal function stable. EKG reported sinus tachycardia. CT of abdomen pelvis reported no acute abdominal/pelvic process, cholelithiasis, hepatomegaly with marked steatosis. maintained onIV fluid hydration, CIWA protocol-current CIWA score 3. Alcohol abstinence reinforced. Repeat T. bili increased, continue monitoring ,repeat in a.m. Community rehab resources discussed, patient currently declining-states she would like to try on her own. yesterday repeat CMP reported T bili trending up to 4.4. This a.m., T bili trending down to 3.4, AST 150, ALT 39, alk phos 140. Denies abdominal pain. CIWA score 0. discussed CT reporting gallstones, it will be further addressed outpatient in clinic. Denies nausea vomiting or diarrhea. Ambulating, tolerating exertion well. alcohol abstinence reinforced.patient will be discharged home today in stable condition with guarded prognosis. The impression and plan of care has been dictated as directed. : I performed a history and examination of this patient, discussed the same with the dictator. I agree with the dictator's note ,documented as a scribe. Any additional findings or plans will be noted. Patient Condition at Discharge: Stable Plan - Discharge Summary Discharge Rx Participant: No New Discharge Prescriptions: New Folic Acid 1 mg PO DAILY tab Thiamine [Vitamin B-1] 100 mg PO DAILY tab Continue Multivitamins, Thera [Multivitamin (formulary)] 1 tab PO DAILY Famotidine [Pepcid] 20 mg PO HS Discharge Medication List Famotidine [Pepcid] 20 mg PO HS 08/09/24 [History] Multivitamins, Thera [Multivitamin (formulary)] 1 tab PO DAILY 08/09/24 [History] Folic Acid 1 mg PO DAILY tab 08/11/24 [Rx] Thiamine [Vitamin B-1] 100 mg PO DAILY tab 08/11/24 [Rx] Follow up Appointment(s)/Referral(s): Catracho Sevilla DO [Primary Care Provider] - 08/17/24 11:00 am Discharge/Stand Alone Forms: [facility] Meetings [facility], AA Meetings [facility], Who Do I Call?, Community Resources, Outpatient Counseling, Inp Substance Abuse Facilities
== END 2024-08-11 12:25 | disposition home or self-care (01) | DRG 897 ==
LOC: EC 08:45 → 5NMEDONC 11:50
PROVIDERS: ADMIT Family Medicine; ATTEND Family Medicine
DX: F10.131 Alcohol abuse with withdrawal delirium (principal); E87.20 Acidosis, unspecified; E83.42 Hypomagnesemia; R00.0 Tachycardia, unspecified; K21.9 Gastro-esophageal reflux disease without esophagitis; K80.20 Calculus of gallbladder without cholecystitis without obstruction; K76.0 Fatty (change of) liver, not elsewhere classified; E80.6 Other disorders of bilirubin metabolism; Z71.41 Alcohol abuse counseling and surveillance of alcoholic; Z88.2 Allergy status to sulfonamides
CPT/HCPCS: 36415; 74177; 80053; 80320; 81003; 83605; 83690; 83735; 85025; 85610; 85730; 93005; 96361; 96365; 96366; 96375; 96376; 99285

== ENCOUNTER 2024-10-25 11:16 | Emergency (ER) | payer BC ==
[2024-10-25 11:25] VITALS: RESP 18
[2024-10-25] MEDS: SODIUM CHLORIDE 0.9% 1,000 ML IV ONE ×2 (12:30→13:29)
[2024-10-25 12:49] LABS: Anisocytosis Slight; HCT 30.8 % (34.0-46.0); HGB 10.4 gm/dL (11.4-16.0); MCHC 33.9 g/dL (31.0-37.0); Macrocytosis Marked; Mean Platelet Volume 8.4; Platelet Count 395 k/uL (150-450); RBC 2.68 m/uL (3.80-5.40); RDW 17.7 % (11.5-15.5)
[2024-10-25 12:53] LABS: AST 233 U/L (14-36); African American GFR (CKD) 35 (>60 ml/min/1.73 sqM); Albumin 2.8 g/dL (3.5-5.0); Alkaline Phosphatase 288 U/L (38-126); Amylase 55 U/L (30-110); Anion Gap 15 mmol/L; Blood Urea Nitrogen 34 mg/dL (7-17); Calcium 8.3 mg/dL (8.4-10.2); Carbon Dioxide 23 mmol/L (22-30); Chloride 77 mmol/L (98-107); Glucose 146 mg/dL (74-99); Lipase 124 U/L (23-300); Non-African American GFR(CKD) 30 (>60 ml/min/1.73 sqM); Potassium 4.5 mmol/L (3.5-5.1)
[2024-10-25 12:59] LABS: INR 1.3 (<1.2); Partial Thromboplastin Time 27.9 sec (22.0-30.0); Prothrombin Time 13.3 sec (10.0-12.5)
[2024-10-25 13:05] VITALS: PULSE 93
[2024-10-25 13:06] LABS: ALT 71 U/L (4-34)
[2024-10-25] MEDS: SODIUM CHLORIDE 0.9% 500 ML 500 ML IV ONE (13:10)
--- NOTE | 2024-10-25 13:11 | ED ---
General Adult HPI - General Chief complaint: Recheck/Abnormal Lab/Rx Stated complaint: jaundis Time Seen by Provider: 10/25/24 11:27 Source: patient, RN notes reviewed, old records reviewed Mode of arrival: wheelchair Limitations: no limitations - History of Present Illness Initial comments: 43 old female presenting from the general surgeon Dr. Jacob's office for evaluation of jaundice. Patient was diagnosed with gallstones 2 months ago and states that she had follow-up with surgery today. Patient was noted to be jaundiced and sent to the emergency department. She denies fever. She denies current abdominal pain. She has had nausea and vomiting. She reports previous alcohol abuse but states she has been drinking minimal alcohol lately 1 drink per day reported by the patient. - Related Data Home Medications Medication Instructions Recorded Confirmed Levothyroxine Sodium [Synthroid] 25 mcg PO DAILY 10/25/24 10/25/24 Allergies Allergy/AdvReac Type Severity Reaction Status Date / Time sulfamethoxazole Allergy Severe Verified 10/25/24 12:52 [From Bactrim] migraines, neck pain, stomach pain trimethoprim [From Bactrim] Allergy Severe Verified 10/25/24 12:52 migraines, neck pain, stomach pain Review of Systems ROS Statement: Those systems with pertinent positive or pertinent negative responses have been documented in the HPI. ROS Other: All systems not noted in ROS Statement are negative. Past Medical History Past Medical History: GERD/Reflux Additional Past Medical History / Comment(s): gallstones; hernia History of Any Multi-Drug Resistant Organisms: None Reported Past Surgical History: Appendectomy Past Anesthesia/Blood Transfusion Reactions: Motion Sickness Past Psychological History: No Psychological Hx Reported Smoking Status: Never smoker Past Alcohol Use History: Heavy Past Drug Use History: None Reported - Past Family History Mother Family Medical History: Cancer General Exam Limitations: no limitations General appearance: alert, in no apparent distress Head exam: Present: atraumatic, normocephalic Eye exam: Present: normal appearance, scleral icterus Neck exam: Present: normal inspection. Absent: tenderness Respiratory exam: Present: normal lung sounds bilaterally. Absent: respiratory distress Cardiovascular Exam: Present: regular rate, normal rhythm GI/Abdominal exam: Present: soft, distended. Absent: tenderness, guarding, rebound Extremities exam: Present: normal inspection, normal capillary refill Neurological exam: Present: alert, oriented X3, CN II-XII intact. Absent: motor sensory deficit Skin exam: Present: other (Jaundice) Course Vital Signs 10/25/24 10/25/24 10/25/24 11:21 13:04 14:15 Temperature 97 F L Pulse Rate 100 93 93 Respiratory 18 18 18 Rate Blood Pressure 85/55 96/56 95/56 O2 Sat by Pulse 100 98 96 Oximetry Medical Decision Making - Medical Decision Making was pt. sent in by a medical professional or institution (, ZORAN, PORTABLE SAWMILL OPERATOR, urgent care, hospital, or [facility]...) When possible be specific @ -Sent him from Dr. Jacob's office for jaundice Did you speak to anyone other than the patient for history (EMS, parent, family, police, friend...)? What history was obtained from this source @ -No Did you review nursing and triage notes (agree or disagree)? Why? @ -I reviewed and agree with nursing and triage notes Were old charts reviewed (outside hosp., previous admission, EMS record, old EKG, old radiological studies, urgent care reports/EKG's, [facility] records)? Report findings @ -No old charts were reviewed Differential Abdominal Pain Women: Appendicitis, Cholecystitis, diverticulosis, ischemic bowel, pancreatitis, hepatitis, UTI, gastroenteritis, AAA, incarcerated hernia, bowel obstruction, constipation, inflammatory bowel, hepatitis, peptic ulcer disease, splenic infarction, perforated viscus, vulvitis, ovarian torsion, PID, kidney stone, raffaele centa abruption, this is not meant to be an all-inclusive list EKG interpreted by me (3pts min.). @ -As above X-rays interpreted by me (1pt min.). @ -None done CT interpreted by me (1pt min.). @ -None done U/S interpreted by me (1pt. min.). @Ultrasound is showing small gallstones without secondary signs of acute cholecystitis, normal common bile duct. What testing was considered but not performed or refused? (CT, X-rays, U/S, labs)? Why? @ -None What meds were considered but not given or refused? Why? @ -None Did you discuss the management of the patient with other professionals (prisca roe i.e. , ZORAN, PORTABLE SAWMILL OPERATOR, lab, RT, psych nurse, clinical social worker, financial writer, teacher, president and chief commercial officer, case packer and sealer)? Give summary @ -Case discussed with Dr. Jackson at [facility] will accept transfer. Tr ansferred secondary to no GI services at this institution. Was smoking cessation discussed for >3mins.? @ -No Was critical care preformed (if so, how long)? @ -No Were there social determinants of health that impacted care today? How? (Homelessness, low income, unemployed, alcoholism, drug addiction, transportation, low edu. Level, literacy, decrease access to med. care, alf, rehab)? @ -No Was there de-escalation of care discussed even if they declined (Discuss DNR or withdrawal of care, Hospice)? DNR status @ -No What co-morbidities impacted this encounter? (DM, HTN, Smoking, COPD, CAD, Cancer, CVA, ARF, Chemo, Hep., AIDS, mental health diagnosis, sleep apnea, morbid obesity)? @ -[Gallstones, chronic alcohol abuse Was patient admitted / discharged? Hospital course, mention meds given and route, prescriptions, significant lab abnormalities, going to OR and other pertinent info. @ -43-year-old female presenting with jaundice, hypotension, history of gallstones and alcohol abuse. Sent in by the general surgeon Dr. Jacob for evaluation. Patient has no abdominal pain or tenderness. She is hypotensive and afebrile upon arrival. She is given IV fluids with improvement in blood pressure. She has a leukocytosis of 25. She is anemic. She has an INR 1.3. She has a bilirubin of 17 and a lactic acid of 6.1 and a mild transaminitis. She is hyponatremic at 115. Patient has profound lab abnormalities. Ultrasound does not show a dilated common bile duct. I suspect either primary liver failure or an obstructive process causing ascending cholangitis. Patient will require GI service. Patient started on Zosyn, blood cultures are obtained. IV fluids will be continued. Undiagnosed new problem with uncertain prognosis? @ -[No Drug Therapy requiring intensive monitoring for toxicity (Heparin, Nitro, Insulin, Cardizem)? @ -No Were any procedures done? @ -No Diagnosis/symptom? @ -Sepsis, jaundice, hyperbilirubinemia, rule out ascending cholangitis Acute, or Chronic, or Acute on Chronic? @ -Acute Uncomplicated (without systemic symptoms) or Complicated (systemic symptoms)? @ -Default Side effects of treatment? @ -No Exacerbation, Progression, or Severe Exacerbation? @ -No Poses a threat to life or bodily function? How? (Chest pain, USA, CT, pneumonia, PE, COPD, DKA, ARF, appy, cholecystitis, CVA, Diverticulitis, Homicidal, Suicidal, threat to staff... and all critical care pts) @ -Yes, sepsis, liver failure - Lab Data Result diagrams: 10/25/24 12:10/25/24 12:31 Lab Results 10/25/24 10/25/24 10/25/24 Range/Units 12:31 12: 12:31 WBC 25.0 H (3.8-10.6) k/uL RBC 2.68 L (3.80-5.40) m/uL Hgb 10.4 L (11.4-16.0) gm/dL Hct 30.8 L (34.0-46.0) % MCV 115.0 H (80.0-100.0) fL MCH 39.0 H (25.0-35.0) pg MCHC 33.9 (31.0-37.0) g/dL RDW 17.7 H (11.5-15.5) % Plt Count 395 (150-450) k/uL MPV 8.4 Neutrophils % (Manual) 89 % Band Neuts % (Manual) 2 % Lymphocytes % (Manual) 5 % Monocytes % (Manual) 4 % Myelocytes % 1 % Neutrophils # (Manual) 22.70 H (1.3-7.7) k/uL Lymphocytes # (Manual) 1.25 (1.0-4.8) k/uL Monocytes # (Manual) 1.00 (0-1.0) k/uL Myelocytes # (Manual) 0.25 H (0) k/uL Nucleated RBCs 0 (0-0) /100 WBC Manual Slide Review Performed Anisocytosis Slight Macrocytosis Marked A Target Cells Present PT 13.3 H (10.0-12.5) sec INR 1.3 H (<1.2) APTT 27.9 (22.0-30.0) sec Sodium 115 L* (137-145) mmol/L Potassium 4.5 (3.5-5.1) mmol/L Chloride 77 L (98-107) mmol/L Carbon Dioxide 23 (22-30) mmol/L Anion Gap 15 mmol/L BUN 34 H (7-17) mg/dL Creatinine 1.98 H (0.52-1.04) mg/dL Est GFR (CKD-EPI)AfAm 35 (>60 ml/min/1.73 sqM) Est GFR (CKD-EPI)NonAf 30 (>60 ml/min/1.73 sqM) Glucose 146 H (74-99) mg/dL Plasma Lactic Acid Kevin (0.7-2.0) mmol/L Calcium 8.3 L (8.4-10.2) mg/dL Total Bilirubin 17.4 H* (0.2-1.3) mg/dL AST 233 H (14-36) U/L ALT 71 H (4-34) U/L Alkaline Phosphatase 288 H (38-126) U/L Total Protein 6.0 L (6.3-8.2) g/dL Albumin 2.8 L (3.5-5.0) g/dL Amylase 55 (30-110) U/L Lipase 124 (23-300) U/L //24 Range/Units 12:31 WBC (3.8-10.6) k/uL RBC (3.80-5.40) m/uL Hgb (11.4-16.0) gm/dL Hct (34.0-46.0) % MCV (80.0-100.0) fL MCH (25.0-35.0) pg MCHC (31.0-37.0) g/dL RDW (11.5-15.5) % Plt Count (150-450) k/uL MPV Neutrophils % (Manual) % Band Neuts % (Manual) % Lymphocytes % (Manual) % Monocytes % (Manual) % Myelocytes % % Neutrophils # (Manual) (1.3-7.7) k/uL Lymphocytes # (Manual) (1.0-4.8) k/uL Monocytes # (Manual) (0-1.0) k/uL Myelocytes # (Manual) (0) k/uL Nucleated RBCs (0-0) /100 WBC Manual Slide Review Anisocytosis Macrocytosis Target Cells PT (10.0-12.5) sec INR (<1.2) APTT (22.0-30.0) sec Sodium (137-145) mmol/L Potassium (3.5-5.1) mmol/L Chloride (98-107) mmol/L Carbon Dioxide (22-30) mmol/L Anion Gap mmol/L BUN (7-17) mg/dL Creatinine (0.52-1.04) mg/dL Est GFR (CKD-EPI)AfAm (>60 ml/min/1.73 sqM) Est GFR (CKD-EPI)NonAf (>60 ml/min/1.73 sqM) Glucose (74-99) mg/dL Plasma Lactic Acid Kevin 6.1 H* (0.7-2.0) mmol/L Calcium (8.4-10.2) mg/dL Total Bilirubin (0.2-1.3) mg/dL AST (14-36) U/L ALT (4-34) U/L Alkaline Phosphatase (38-126) U/L Total Protein (6.3-8.2) g/dL Albumin (3.5-5.0) g/dL Amylase (30-110) U/L Lipase (23-300) U/L Disposition Clinical Impression: Liver failure, Hyperbilirubinemia, Sepsis Narrative: Rule out ascending cholangitis Disposition: OTHER INSTITUTION NOT DEFINED Condition: Serious Is patient prescribed a controlled substance at d/c from ED?: No Referrals: Catracho Sevilla DO [Primary Care Provider] - 1-2 days Time of Disposition: 14:31 - Out of Hospital Transfer - Req. Specs Out of Hospital Transfer - Requested Specifics: Other Emergency Center (Transfer to [facility])
[2024-10-25] MEDS: fentaNYL (PF) 50 MCG/ML 2 ML AMP IVP STA (13:12)
[2024-10-25 13:17] LABS: Sodium 115 mmol/L (137-145)
[2024-10-25 13:18] LABS: Total Bilirubin 17.4 mg/dL (0.2-1.3)
[2024-10-25] MEDS: PIPERACILLIN-TAZOBACTAM 3.375 GM in SODIUM CHLORIDE 0.9% 100 ML IVPB STA (13:30)
[2024-10-25] MEDS: SODIUM CHLORIDE 0.9% 1,000 ML IV SCH (13:30)
[2024-10-25 13:35] LABS: Band Neutrophils % 2 %; Lymphocytes # (M) 1.25 k/uL (1.0-4.8); Myelocytes # (M) 0.25 k/uL (0); Myelocytes % 1 %; Neutrophils % (M) 89 %; Nucleated Red Blood Cells 0 /100 WBC (0-0); Target Cells Present; Total Cells Counted 200
--- NOTE | 2024-10-25 14:01 | US ---
EXAMINATION TYPE: US gallbladder DATE OF EXAM: 10/25/2024 COMPARISON: CT CLINICAL INDICATION: Female, 43 years old with history of abd Pain, jaundice; Jaundice TECHNIQUE: Grayscale and color Doppler imaging of the right upper quadrant was performed. FINDINGS: EXAM MEASUREMENTS: Liver Length: 18.1 cm Gallbladder Wall: 0.2 cm CBD: 0.5 cm Right Kidney: 10.7 x 4.3 x 4.3 cm AIRCRAFT [employer]CH[employer]IC NOTES: Very difficult to penetrate pt's abdomen Pancreas: Obscured by bowel gas Liver: Enlarged, very difficult to penetrate, suboptimal evaluation Gallbladder: Possible small "gravel/stones", no wall thickening or abnormal distention. Evidence for sonographic Garcia's sign: No CBD: wnl Right Kidney: Limited views show no evidence of hydro Small amount of ascites present within abdomen IMPRESSION: 1. Mild hepatomegaly with severe hepatic steatosis. Appropriate clinical management advised. 2. Some gravel/small stones within the gallbladder. No abnormal distention or wall thickening. 3. No biliary ductal dilatation. 4. Trace abdominal ascites. Appropriate further GI evaluation recommended. [facility], , 10/25/2024 1:58 PM
[2024-10-25 16:16] VITALS: BP 91/59; TEMP 97.8
== END 2024-10-25 16:16 | disposition other institution (70) ==
LOC: EC 11:16
DX: A41.9 Sepsis, unspecified organism (principal); K72.90 Hepatic failure, unspecified without coma; E80.6 Other disorders of bilirubin metabolism; K80.20 Calculus of gallbladder without cholecystitis without obstruction; F10.10 Alcohol abuse, uncomplicated; Z88.1 Allergy status to other antibiotic agents; Z88.2 Allergy status to sulfonamides
CPT/HCPCS: 36415; 80053; 82150; 83605; 83690; 85025; 85610; 85730; 87040; 76705; 99285; 96365; 96366; 96375; 96361 ×2; J2543; J3010

== ENCOUNTER 2024-11-18 17:29 | Inpatient (IN) | payer BC ==
[2024-11-18] MEDS: LACTATED RINGERS 1,000 ML BAG IV STA (18:35)
[2024-11-18] MEDS: LINEZOLID 600 MG in DEXTROSE/WATER 1 300ML.BAG IVPB STA (18:36)
--- NOTE | 2024-11-18 18:39 | ED ---
General Adult HPI - General Chief complaint: Urogenital Stated complaint: UTI, ABD SWELL Time Seen by Provider: 11/18/24 17:42 Source: patient, family, RN notes reviewed, old records reviewed Mode of arrival: wheelchair Limitations: no limitations - History of Present Illness Initial comments: 43-year-old female presenting for evaluation of lower abdominal pain, and diagnosis of drug-resistant urinary tract infection. Patient had urinalysis and urine culture on the and was informed that she had to come to the emergency department for IV antibiotics. Patient has history of liver failure and had recent admission at outside hospital with GI consultation. She is a previous drinker quit approximately 4 months ago. No surgical intervention was performed according to the patient while she was at [facility] and she was subsequently discharged. She denies fever. Reports lower abdominal pain and dysuria. Patient denies any upper abdominal pain. - Related Data Home Medications Medication Instructions Recorded Confirmed Levothyroxine Sodium [Synthroid] 25 mcg PO DAILY 10/25/24 10/25/24 Allergies Allergy/AdvReac Type Severity Reaction Status Date / Time sulfamethoxazole Allergy Severe Verified 10/25/24 12:52 [From Bactrim] migraines, neck pain, stomach pain trimethoprim [From Bactrim] Allergy Severe Verified 10/25/24 12:52 migraines, neck pain, stomach pain Review of Systems ROS Statement: Those systems with pertinent positive or pertinent negative responses have been documented in the HPI. ROS Other: All systems not noted in ROS Statement are negative. Past Medical History Past Medical History: GERD/Reflux, Liver Disease Additional Past Medical History / Comment(s): gallstones; hernia History of Any Multi-Drug Resistant Organisms: VRE Date of last positivie culture/infection: 11/10/24 MDRO Source:: urine Past Surgical History: Appendectomy Past Anesthesia/Blood Transfusion Reactions: Motion Sickness Past Psychological History: No Psychological Hx Reported Smoking Status: Never smoker Past Alcohol Use History: None Reported, Heavy Past Drug Use History: None Reported - Past Family History Mother Family Medical History: Cancer General Exam Limitations: no limitations General appearance: alert Head exam: Present: atraumatic, normocephalic Eye exam: Present: normal appearance, PERRL, scleral icterus ENT exam: Present: mucous membranes dry Respiratory exam: Present: normal lung sounds bilaterally. Absent: respiratory distress, wheezes Cardiovascular Exam: Present: normal rhythm, tachycardia GI/Abdominal exam: Present: distended, tenderness (Lower abdominal, suprapubic). Absent: guarding Extremities exam: Present: normal inspection Neurological exam: Present: alert, oriented X3 Psychiatric exam: Present: normal affect, normal mood Skin exam: Present: other (jaundice) Course Vital Signs 11/18/24 11/18/24 11/18/24 17:34 18:26 20:00 Temperature 98.1 F 97.8 F Pulse Rate 114 H 98 86 Respiratory 20 20 16 Rate Blood Pressure 89/60 110/74 95/62 O2 Sat by Pulse 97 96 94 L Oximetry Medical Decision Making - Medical Decision Making Was pt. sent in by a medical professional or institution (, PA, STRETCHER LEVELER OPERATOR HELPER, urgent care, hospital, or fci...) When possible be specific @ -No Did you speak to anyone other than the patient for history (EMS, parent, family, police, friend...)? What history was obtained from this source @ -No Did you review nursing and triage notes (agree or disagree)? Why? @ -I reviewed and agree with nursing and triage notes Were old charts reviewed (outside hosp., previous admission, EMS record, old EK G, old radiological studies, urgent care reports/EKG's, fci records)? Report findings @ -No old charts were reviewed Differential Abdominal Pain Women: Appendicitis, Cholecystitis, diverticulosis, ischemic bowel, pancreatitis, hepatitis, UTI, gastroenteritis, AAA, incarcerated hernia, bowel obstruction, constipation, inflammatory bowel, hepatitis, peptic ulcer disease, splenic infarction, perforated viscus, vulvitis, ovarian torsion, PID, kidney stone, placenta abruption, this is not meant to be an all-inclusive list EKG interpreted by me (3pts min.). @Sinus rhythm rate of 97, AK interval 143, QRS duration 84, QTc [address] segment elevation. X-rays interpreted by me (1pt min.). @ -None done CT interpreted by me (1pt min.). @ -[CT abdomen pelvis showing cholelithiasis, anasarca, no definitive acute process in the lower abdomen. U/S interpreted by me (1pt. min.). @ -None done What testing was considered but not performed or refused? (CT, X-rays, U/S, labs)? Why? @ -None What meds were considered but not given or refused? Why? @ -None Did you discuss the management of the patient with other professionals (professionals i.e. , PA, STRETCHER LEVELER OPERATOR HELPER, lab, RT, psych nurse, social research assistant, office bookkeeper, teacher, flight radio officer, special education case manager)? Give summary @ -Case discussed with Dr. Lehman, covering for [facility] Was smoking cessation discussed for >3mins.? @ -No Was critical care preformed (if so, how long)? @ -No Were there social determinants of health that impacted care today? How? ( Homelessness, low income, unemployed, alcoholism, drug addiction, transportation, low edu. Level, literacy, decrease access to med. care, longterm, rehab)? @ -No Was there de-escalation of care discussed even if they declined (Discuss DNR or withdrawal of care, Hospice)? DNR status @ -No What co-morbidities impacted this encounter? (DM, HTN, Smoking, COPD, CAD, Cancer, CVA, ARF, Chemo, Hep., AIDS, mental health diagnosis, sleep apnea, morbid obesity)? @ -Liver failure secondary to alcohol abuse, last drink was 4 months ago Was patient admitted / discharged? Hospital course, mention meds given and route, prescriptions, significant lab abnormalities, going to OR and other pertinent info. @ -[43-year-old female presenting with positive urine culture which was ordered on the and grew VRE. Patient was presenting with lower abdominal pain. No upper abdominal pain. Patient was transferred to [facility] with liver failure and concern for ascending cholangitis approximately 1 month ago. She states she did not undergo any intervention at that time and was subsequently discharged. She has been home for several weeks. She had outpatient lab testing performed on the which showed elevated white blood cell count, elevated BUN and creatinine, elevated bilirubin. These tests are repeated today. Her white blood cell count is still elevated but is downtrending. Her creatinine is improved at 2.6. Her bilirubin is improved at 8 from 15. Her urinalysis today is unremarkable but urine culture will be obtained. Blood cultures have been obtained. The patient is on linezolid and the case was discussed both with the admitting physician and Dr. Monterroso covering for infectiou s disease. Undiagnosed new problem with uncertain prognosis? @ -No Drug Therapy requiring intensive monitoring for toxicity (Heparin, Nitro, Insulin, Cardizem)? @ -No Were any procedures done? @ -No Diagnosis/symptom? @Outpatient VRE UTI, chronic liver failure Acute, or Chronic, or Acute on Chronic? @Acute Uncomplicated (without systemic symptoms) or Complicated (systemic symptoms)? @ -Default Side effects of treatment? @ -No Exacerbation, Progression, or Severe Exacerbation? @ -No Poses a threat to life or bodily function? How? (Chest pain, [place], NE, pneumonia, PE, COPD, DKA, ARF, appy, cholecystitis, CVA, Diverticulitis, Homicidal, Suicidal, threat to staff... and all critical care pts) @ -Yes, sepsis, liver failure - Lab Data Result diagrams: 11/18/24 18:21 11/18/24 18:21 Lab Results 11/18/24 11/18/24 11/18/24 Range/Units 18:21 18:21 18:21 WBC 21.3 H (3.8-10.6) k/uL RBC 2.92 L (3.80-5.40) m/uL Hgb 11.3 L (11.4-16.0) gm/dL Hct 35.8 (34.0-46.0) % MCV 122.7 H D (80.0-100.0) fL MCH 38.8 H (25.0-35.0) pg MCHC 31.6 (31.0-37.0) g/dL RDW 15.4 (11.5-15.5) % Plt Count 276 (150-450) k/uL MPV 10.1 Neutrophils % 83 % Lymphocytes % 8 % Monocytes % 3 % Eosinophils % 5 % Basophils % 0 % Neutrophils # 17.7 H (1.3-7.7) k/uL Lymphocytes # 1.7 (1.0-4.8) k/uL Monocytes # 0.7 (0-1.0) k/uL Eosinophils # 1.0 H (0-0.7) k/uL Basophils # 0.1 (0-0.2) k/uL Manual Slide Review Performed Hypochromasia Slight Macrocytosis Marked A PT 13.9 H (10.0-12.5) sec INR 1.3 H (<1.2) APTT 25.7 (22.0-30.0) sec Sodium 142 (137-145) mmol/L Potassium 3.5 (3.5-5.1) mmol/L Chloride 109 H (98-107) mmol/L Carbon Dioxide 21 L (22-30) mmol/L Anion Gap 12 mmol/L BUN 99 H (7-17) mg/dL Creatinine 2.63 H (0.52-1.04) mg/dL Est GFR (CKD-EPI)AfAm 24 (>60 ml/min/1.73 sqM) Est GFR (CKD-EPI)NonAf 21 (>60 ml/min/1.73 sqM) Glucose 130 H (74-99) mg/dL Plasma Lactic Acid Kevin (0.7-2.0) mmol/L Calcium 9.0 (8.4-10.2) mg/dL Total Bilirubin 8.5 H (0.2-1.3) mg/dL AST 129 H (14-36) U/L ALT 61 H (4-34) U/L Alkaline Phosphatase 297 H (38-126) U/L Total Protein 5.8 L (6.3-8.2) g/dL Albumin 2.7 L (3.5-5.0) g/dL Amylase 71 (30-110) U/L Lipase 313 H (23-300) U/L Urine Color Urine Appearance (Clear) Urine pH (5.0-8.0) Ur Specific [place] (1.001-1.035) Urine Protein (Negative) Urine Glucose (UA) (Negative) Urine Ketones (Negative) Urine Blood (Negative) Urine Nitrite (Negative) Urine Bilirubin (Negative) Urine Urobilinogen (<2.0) mg/dL Ur Leukocyte Esterase (Negative) Urine RBC (0-5) /hpf Urine WBC (0-5) /hpf Ur Squamous Epith Cells (0-4) /hpf Urine Mucus (None) /hpf 11/18/24 11/18/24 Range/Units 18:21 18:21 WBC (3.8-10.6) k/uL RBC (3.80-5.40) m/uL Hgb (11.4-16.0) gm/dL Hct (34.0-46.0) % MCV (80.0-100.0) fL MCH (25.0-35.0) pg MCHC (31.0-37.0) g/dL RDW (11.5-15.5) % Plt Count (150-450) k/uL MPV Neutrophils % % Lymphocytes % % Monocytes % % Eosinophils % % Basophils % % Neutrophils # (1.3-7.7) k/uL Lymphocytes # (1.0-4.8) k/uL Monocytes # (0-1.0) k/uL Eosinophils # (0-0.7) k/uL Basophils # (0-0.2) k/uL Manual Slide Review Hypochromasia Macrocytosis PT (10.0-12.5) sec INR (<1.2) APTT (22.0-30.0) sec Sodium (137-145) mmol/L Potassium (3.5-5.1) mmol/L Chloride (98-107) mmol/L Carbon Dioxide (22-30) mmol/L Anion Gap mmol/L BUN (7-17) mg/dL Creatinine (0.52-1.04) mg/dL Est GFR (CKD-EPI)AfAm (>60 ml/min/1.73 sqM) Est GFR (CKD-EPI)NonAf (>60 ml/min/1.73 sqM) Glucose (74-99) mg/dL Plasma Lactic Acid Kevin 4.0 H* (0.7-2.0) mmol/L Calcium (8.4-10.2) mg/dL Total Bilirubin (0.2-1.3) mg/dL AST (14-36) U/L ALT (4-34) U/L Alkaline Phosphatase (38-126) U/L Total Protein (6.3-8.2) g/dL Albumin (3.5-5.0) g/dL Amylase (30-110) U/L Lipase (23-300) U/L Urine Color Yellow Urine Appearance Cloudy H (Clear) Urine pH 5.0 (5.0-8.0) Ur Specific [place] 1.014 (1.001-1.035) Urine Protein Negative (Negative) Urine Glucose (UA) Negative (Negative) Urine Ketones Negative (Negative) Urine Blood Negative (Negative) Urine Nitrite Negative (Negative) Urine Bilirubin 1+ H (Negative) Urine Urobilinogen 3.0 (<2.0) mg/dL Ur Leukocyte Esterase Negative (Negative) Urine RBC 1 (0-5) /hpf Urine WBC 7 H (0-5) /hpf Ur Squamous Epith Cells 7 H (0-4) /hpf Urine Mucus Rare H (None) /hpf Disposition Clinical Impression: Urinary tract infection, VRE (vancomycin resistant enterococcus) culture p ositive Disposition: ADMITTED IP TO THIS HOSP Condition: Stable Is patient prescribed a controlled substance at d/c from ED?: No Referrals: Catracho Sevilla DO [Primary Care Provider] - 1-2 days Time of Disposition: 20:48
[2024-11-18 18:48] LABS: Appearance,Urine Cloudy (Clear); Bilirubin,Urine 1+ (Negative); Blood,Urine Negative (Negative); Color,Urine Yellow; Glucose,Urine (UA) Negative (Negative); Ketones,Urine Negative (Negative); Leukocyte Esterase,Urine Negative (Negative); Mucus,Urine Rare /hpf; Nitrite,Urine Negative (Negative); Protein,Urine Negative (Negative); RBC,Urine 1 /hpf (0-5); Specific Gravity,Urine 1.014 (1.001-1.035); Squamous Epithelial Cell,Urine 7 /hpf (0-4); WBC,Urine 7 /hpf (0-5)
[2024-11-18 18:50] LABS: Basophils # (A) 0.1 k/uL (0-0.2); Basophils % (A) 0 %; Eosinophils % (A) 5 %; HCT 35.8 % (34.0-46.0); HGB 11.3 gm/dL (11.4-16.0); Hypochromasia Slight; Lymphocytes # (A) 1.7 k/uL (1.0-4.8); Lymphocytes % (A) 8 %; MCH 38.8 pg (25.0-35.0); MCHC 31.6 g/dL (31.0-37.0); Macrocytosis Marked; Mean Platelet Volume 10.1; Monocytes # (A) 0.7 k/uL (0-1.0); Monocytes % (A) 3 %; Neutrophils # (A) 17.7 k/uL (1.3-7.7); Neutrophils % (A) 83 %; Platelet Count 276 k/uL (150-450); RBC 2.92 m/uL (3.80-5.40); RDW 15.4 % (11.5-15.5); WBC 21.3 k/uL (3.8-10.6)
[2024-11-18 18:51] LABS: ALT 61 U/L (4-34); AST 129 U/L (14-36); African American GFR (CKD) 24 (>60 ml/min/1.73 sqM); Albumin 2.7 g/dL (3.5-5.0); Alkaline Phosphatase 297 U/L (38-126); Amylase 71 U/L (30-110); Anion Gap 12 mmol/L; Blood Urea Nitrogen 99 mg/dL (7-17); Carbon Dioxide 21 mmol/L (22-30); Chloride 109 mmol/L (98-107); Glucose 130 mg/dL (74-99); Lipase 313 U/L (23-300); Non-African American GFR(CKD) 21 (>60 ml/min/1.73 sqM); Potassium 3.5 mmol/L (3.5-5.1); Sodium 142 mmol/L (137-145); Total Bilirubin 8.5 mg/dL (0.2-1.3); Total Protein 5.8 g/dL (6.3-8.2)
[2024-11-18 18:56] LABS: INR 1.3 (<1.2); MCV 122.7 fL (80.0-100.0); Partial Thromboplastin Time 25.7 sec (22.0-30.0); Prothrombin Time 13.9 sec (10.0-12.5)
[2024-11-18] MEDS: SODIUM CHLORIDE 0.9% 1,000 ML IV SCH (20:06)
--- NOTE | 2024-11-18 20:13 | CT ---
EXAMINATION TYPE: CT abdomen pelvis wo con DATE OF EXAM: 11/18/2024 7:53 PM COMPARISON: 08/09/2024 CLINICAL INDICATION: Female, 43 years old with history of ab pain; abd pain/jaundice TECHNIQUE: Axial CT abdomen pelvis wo con;Sagittal and coronal reformats were created on a separate workstation. Contrast used: mL of , (none if empty) Oral contrast used: without Oral Contrast (none if empty) CT DLP: 942.9 mGycm, Automated exposure control for dose reduction was used. FINDINGS: LOWER CHEST: Unremarkable small bilateral pleural effusions. ABDOMEN LIVER: Improved hepatic steatosis. GALLBLADDER AND BILE DUCTS: Layering increased densities within the lumen consistent with gallstones are present. PANCREAS: Unremarkable. SPLEEN: Unremarkable. ADRENAL GLANDS: Unremarkable. KIDNEYS AND URETERS: No evidence of hydronephrosis or renal calculus. The ureters are unremarkable. PELVIS BLADDER: No evidence for wall thickening or mass given limitations of exam. REPRODUCTIVE: Unremarkable. ABDOMEN & PELVIS STOMACH AND BOWEL: No evidence of bowel obstruction. Right lower quadrant appendicostomy surgical cli ps. PERITONEUM/RETROPERITONEUM: No evidence of pneumoperitoneum or free fluid. VASCULATURE: No evidence of aortic aneurysm. MUSCULOSKELETAL: No acute osseous abnormalities LYMPH NODES: No gross evidence for lymphadenopathy. SOFT TISSUE/ABDOMINAL WALL: Anasarca of this soft tissues throughout the soft tissue. IMPRESSION: 1. Anasarca with ascites and bilateral pleural effusions. Correlate for third spacing of fluid and s ystemic causes. No definitive acute abdominal process identified. 2. Cholelithiasis. [facility], , 11/18/2024 8:11 PM
[2024-11-18] MEDS ORDERED: NALOXONE 0.4 MG/ML 1 ML VIAL IV PRN (20:42)
[2024-11-18] MEDS: HYDROmorphone 0.5 MG/0.5 ML SYRINGE IVP PRN (23:07)
[2024-11-19 06:24] LABS: Basophils % (A) 0 %; Eosinophils # (A) 1.1 k/uL (0-0.7); Eosinophils % (A) 6 %; HCT 29.9 % (34.0-46.0); Hypochromasia Moderate; Lymphocytes % (A) 10 %; MCHC 31.8 g/dL (31.0-37.0); MCV 122.5 fL (80.0-100.0); Macrocytosis Marked; Mean Platelet Volume 9.7; Monocytes # (A) 0.7 k/uL (0-1.0); Monocytes % (A) 3 %; Neutrophils # (A) 15.2 k/uL (1.3-7.7); Neutrophils % (A) 79 %; Platelet Count 239 k/uL (150-450); RBC 2.44 m/uL (3.80-5.40); RDW 15.1 % (11.5-15.5); WBC 19.1 k/uL (3.8-10.6)
[2024-11-19 06:34] LABS: HGB 9.5 gm/dL (11.4-16.0)
[2024-11-19 06:41] LABS: ALT 57 U/L (4-34); AST 107 U/L (14-36); African American GFR (CKD) 26 (>60 ml/min/1.73 sqM); Albumin 2.5 g/dL (3.5-5.0); Alkaline Phosphatase 249 U/L (38-126); Anion Gap 10 mmol/L; Blood Urea Nitrogen 91 mg/dL (7-17); Calcium 9.1 mg/dL (8.4-10.2); Carbon Dioxide 22 mmol/L (22-30); Chloride 109 mmol/L (98-107); Glucose 127 mg/dL (74-99); Non-African American GFR(CKD) 22 (>60 ml/min/1.73 sqM); Potassium 3.5 mmol/L (3.5-5.1); Sodium 141 mmol/L (137-145); Total Bilirubin 8.1 mg/dL (0.2-1.3); Total Protein 5.4 g/dL (6.3-8.2)
[2024-11-19] MEDS ORDERED: traMADol 50 MG TAB PO PRN (12:09)
[2024-11-19] MEDS: LEVOTHYROXINE 25 MCG TAB PO SCH (14:10)
[2024-11-19] MEDS: THIAMINE 100 MG TAB PO SCH (14:10)
[2024-11-19] MEDS: PANTOPRAZOLE 40 MG TABLET PO SCH (14:10)
[2024-11-19] MEDS: LINEZOLID 600 MG TAB PO SCH (15:51)
--- NOTE | 2024-11-19 17:24 | P.HPIM ---
History of Present Illness H&P Date: 11/19/24 Chief Complaint: UTI/abdominal swelling 43-year-old female presenting for evaluation of lower abdominal pain, and diagnosis of drug-resistant urinary tract infection. Patient had urinalysis and urine culture on the and was informed that she had to come to the emergency department for IV antibiotics. Patient has history of liver failure and had recent admission at outside hospital with GI consultation. She is a previous drinker quit approximately 4 months ago. No surgical intervention was performed according to the patient while she was at [facility] and she was subsequently discharged. She denies fever. Reports lower abdominal pain and dysuria. Patient denies any upper abdominal pain. Blood work completed in ED reveals a WBC of 21.3, hemoglobin of 11.3 and platelet count of 276, INR 1.3, sodium 142, potassium 3.5, BUNs/creatinine of 99/2.63, lactic acid of 2.5, total bilirubin elevated at 8.5, AST of 129, ALT 61, amylase of 71, lipase 313, EKG reveals sinus rhythm rate of 97, PA interval 143, QRS duration 84, QTc [address] segment elevation. CT abdomen pelvis showing cholelithiasis, anasarca, no definitive acute process in the lower abdomen. Review of Systems REVIEW OF SYSTEMS: CONSTITUTIONAL: No fever, no malaise, no fatigue. HEENT: No recent visual problems or hearing problems. Denied any sore throat. CARDIOVASCULAR: No chest pain, orthopnea, PND, no palpitations, no syncope. PULMONARY: No shortness of breath, no cough, no hemoptysis. GASTROINTESTINAL: No diarrhea, no nausea, no vomiting, no abdominal pain. NEUROLOGICAL: No headaches, no weakness, no numbness. HEMATOLOGICAL: Denies any bleeding or petechiae. GENITOURINARY: Denies any burning micturition, frequency, or urgency. MUSCULOSKELETAL/RHEUMATOLOGICAL: Denies any joint pain, swelling, or any muscle pain. ENDOCRINE: Denies any polyuria or polydipsia. The rest of the 14-point review of systems is negative. Past Medical History Past Medical History: GERD/Reflux, Liver Disease Additional Past Medical History / Comment(s): gallstones; hernia History of Any Multi-Drug Resistant Organisms: VRE Date of last positivie culture/infection: 11/10/24 MDRO Source:: urine Past Surgical History: Appendectomy Past Anesthesia/Blood Transfusion Reactions: Motion Sickness Past Psychological History: No Psychological Hx Reported Smoking Status: Never smoker Past Alcohol Use History: None Reported, Heavy Past Drug Use History: None Reported - Past Family History Mother Family Medical History: Cancer Medications and Allergies Home Medications Medication Instructions Recorded Confirmed Type Levothyroxine Sodium [Synthroid] 25 mcg PO DAILY 10/25/24 11/19/24 History Folic Acid 1 mg PO DAILY 11/19/24 11/19/24 History Midodrine [ProAmatine] 10 mg PO TID PRN 11/19/24 11/19/24 History Multivitamins, Thera [Multivitamin 1 tab PO DAILY 11/19/24 11/19/24 History (formulary)] Ondansetron [Zofran] 4 mg PO Q8HR PRN 11/19/24 11/19/24 History Pantoprazole [Protonix] 40 mg PO DAILY 11/19/24 11/19/24 History Thiamine [Vitamin B-1] 100 mg PO DAILY 11/19/24 11/19/24 History traMADol HCL 50 mg PO Q6H PRN 11/19/24 11/19/24 History Allergies Allergy/AdvReac Type Severity Reaction Status Date / Time sulfamethoxazole Allergy Severe Verified 11/19/24 08:56 [From Bactrim] migraines, neck pain, stomach pain trimethoprim [From Bactrim] Allergy Severe Verified 11/19/24 08:56 migraines, neck pain, stomach pain Physical Exam Vitals: Vital Signs Temp Pulse Pulse Resp BP BP Pulse Ox 11/19/24 12:02 94 18 99/63 95 11/19/24 09:52 95 19 86/64 11/19/24 07:10 87 18 95/54 95 11/19/24 04:54 84 18 94/66 97 11/18/24 23:46 98 F 87 15 97/63 97 11/18/24 21:42 86 16 95/64 95 11/18/24 20:00 97.8 F 86 16 95/62 94 L 11/18/24 18:26 98 20 110/74 96 11/18/24 17:34 98.1 F 114 H 20 89/60 97 Intake and Output 11/18/24 11/19/24 11/19/24 22:59 06:59 14:59 Other: Weight 64.41 kg General appearance: alert Head exam: Present: atraumatic, normocephalic Eye exam: Present: normal appearance, PERRL, scleral icterus ENT exam: Present: mucous membranes dry Respiratory exam: Present: normal lung sounds bilaterally. Absent: respiratory distress, wheezes Cardiovascular Exam: Present: normal rhythm, tachycardia GI/Abdominal exam: Present: distended, tenderness (Lower abdominal, suprapubic). Absent: guarding Extremities exam: Present: normal inspection Neurological exam: Present: alert, oriented X3 Psychiatric exam: Present: normal affect, normal mood Skin exam: Present: other (jaundice) Results CBC & Chem 7: 11/19/24 05:51 11/19/24 05:51 Labs: Abnormal Lab Results - Last 24 Hours (Table) 11/18/24 11/18/24 11/18/24 Range/Units 18:21 18:21 18:21 WBC 21.3 H (3.8-10.6) k/uL RBC 2.92 L (3.80-5.40) m/uL Hgb 11.3 L (11.4-16.0) gm/dL Hct (34.0-46.0) % MCV 122.7 H D (80.0-100.0) fL MCH 38.8 H (25.0-35.0) pg Neutrophils # 17.7 H (1.3-7.7) k/uL Eosinophils # 1.0 H (0-0.7) k/uL Macrocytosis Marked A PT 13.9 H (10.0-12.5) sec INR 1.3 H (<1.2) Chloride 109 H (98-107) mmol/L Carbon Dioxide 21 L (22-30) mmol/L BUN 99 H (7-17) mg/dL Creatinine 2.63 H (0.52-1.04) mg/dL Glucose 130 H (74-99) mg/dL Plasma Lactic Acid Kevin (0.7-2.0) mmol/L Total Bilirubin 8.5 H (0.2-1.3) mg/dL AST 129 H (14-36) U/L ALT 61 H (4-34) U/L Alkaline Phosphatase 297 H (38-126) U/L Total Protein 5.8 L (6.3-8.2) g/dL Albumin 2.7 L (3.5-5.0) g/dL Lipase 313 H (23-300) U/L Urine Appearance (Clear) Urine Bilirubin (Negative) Urine WBC (0-5) /hpf Ur Squamous Epith Cells (0-4) /hpf Urine Mucus (None) /hpf 11/18/24 11/18/24 11/18/24 Range/Units 18:21 18:21 21:46 WBC (3.8-10.6) k/uL RBC (3.80-5.40) m/uL Hgb (11.4-16.0) gm/dL Hct (34.0-46.0) % MCV (80.0-100.0) fL MCH (25.0-35.0) pg Neutrophils # (1.3-7.7) k/uL Eosinophils # (0-0.7) k/uL Macrocytosis PT (10.0-12.5) sec INR (<1.2) Chloride (98-107) mmol/L Carbon Dioxide (22-30) mmol/L BUN (7-17) mg/dL Creatinine (0.52-1.04) mg/dL Glucose (74-99) mg/dL Plasma Lactic Acid Kevin 4.0 H* 2.5 H* (0.7-2.0) mmol/L Total Bilirubin (0.2-1.3) mg/dL AST (14-36) U/L ALT (4-34) U/L Alkaline Phosphatase (38-126) U/L Total Protein (6.3-8.2) g/dL Albumin (3.5-5.0) g/dL Lipase (23-300) U/L Urine Appearance Cloudy H (Clear) Urine Bilirubin 1+ H (Negative) Urine WBC 7 H (0-5) /hpf Ur Squamous Epith Cells 7 H (0-4) /hpf Urine Mucus Rare H (None) /hpf 11/19/24 11/19/24 11/19/24 Range/Units 01:19 05:51 05:51 WBC 19.1 H (3.8-10.6) k/uL RBC 2.44 L (3.80-5.40) m/uL Hgb 9.5 L D (11.4-16.0) gm/dL Hct 29.9 L (34.0-46.0) % MCV 122.5 H (80.0-100.0) fL MCH 39.0 H (25.0-35.0) pg Neutrophils # 15.2 H (1.3-7.7) k/uL Eosinophils # 1.1 H (0-0.7) k/uL Macrocytosis Marked A PT (10.0-12.5) sec INR (<1.2) Chloride 109 H (98-107) mmol/L Carbon Dioxide (22-30) mmol/L BUN 91 H (7-17) mg/dL Creatinine 2.52 H (0.52-1.04) mg/dL Glucose 127 H (74-99) mg/dL Plasma Lactic Acid Kevin 2.8 H* (0.7-2.0) mmol/L Total Bilirubin 8.1 H (0.2-1.3) mg/dL AST 107 H (14-36) U/L ALT 57 H (4-34) U/L Alkaline Phosphatase 249 H (38-126) U/L Total Protein 5.4 L (6.3-8.2) g/dL Albumin 2.5 L (3.5-5.0) g/dL Lipase (23-300) U/L Urine Appearance (Clear) Urine Bilirubin (Negative) Urine WBC (0-5) /hpf Ur Squamous Epith Cells (0-4) /hpf Urine Mucus (None) /hpf Assessment and Plan Assessment: 1. UTI; urine culture reveals VRE --Patient is placed on IV Zyvox; blood cultures and urine culture repeated -- Will consult ID 2. Lactic acidosis; likely related to sepsis secondary to UTI -Patient received IV fluid bolus with maintenance fluids; monitor lactic acid levels 3. Acute on chronic kidney disease; will monitor strict GISELLE's, daily weights, renal function electrolytes; avoid nephrotoxins and hypotension 4. Alcoholic liver disease; transaminitis; elevated bilirubin; will monitor liver enzymes as needed 5. Abdominal pain; lipase is mildly elevated at 313; will repeat levels tomorrow morning; patient could be maintained on a clear liquid diet and advance as tolerated 6. Hypothyroidism; levothyroxine 25 mcg daily 7. Gastroesophageal reflux disease; Protonix 40 mg daily 8. Chronic alcohol use; patient quit a few weeks ago; continue with thiamine and folic acid DVT prophylaxis; SCDs CODE STATUS; full code
--- NOTE | 2024-11-20 08:01 | P.CONS ---
History of Present Illness - Reason for Consult Consult date: 11/19/24 VRE UTI Requesting physician: Matteo Lockhart - Chief Complaint Urinary burning pressure x days - History of Present Illness Patient is a 43-year-old female with a past medical history significant for reflux gallstone liver disease patient apparently has been dealing with UTI symptoms of burning of urine frequency some suprapubic discomfort for the patient has been treated with an oral antibiotic by her primary care physician apparently the patient did have urine culture done on 11/10/2024 that has came back positive for VRE for the patient was advised to come to the hospital on arrival to the ER the patient was afebrile and no fever have been recorded subsequently patient denies any headache or URI symptoms no chest pain shortness of breath or cough has been complaining of some nausea lower abdominal discomfort burning of urine pressure and decreased urine output but no hematuria or flank pain on presentation the hospital the patient was afebrile no fever have been recorded subsequently patient did have a white count of 21.3 with a left shift BUN and creatinine has been mildly elevated as well as with the elevated liver enzyme urine was mildly positive she did receive a dose of Zyvox IV in the ER subsequently has been admitted to hospital infectious disease was consulted for further management of antibiotic therapy Review of Systems Positive point and negatives has been mentioned in the HPI, complete review of systems was performed and all other systems are negative Past Medical History Past Medical History: GERD/Reflux, Liver Disease Additional Past Medical History / Comment(s): gallstones; hernia History of Any Multi-Drug Resistant Organisms: VRE Year Discovered:: 11/10/24 MDRO Source:: urine Past Surgical History: Appendectomy Past Anesthesia/Blood Transfusion Reactions: Motion Sickness Past Psychological History: No Psychological Hx Reported Smoking Status: Never smoker Past Alcohol Use History: None Reported, Heavy Past Drug Use History: None Reported - Past Family History Mother Family Medical History: Cancer Father History Unknown: Yes Additional Family Medical History / Comment(s): Dose not know bio dad Medications and Allergies Home Medications Medication Instructions Recorded Confirmed Type Levothyroxine Sodium [Synthroid] 25 mcg PO DAILY 10/25/24 11/19/24 History Folic Acid 1 mg PO DAILY 11/19/24 11/19/24 History Midodrine [ProAmatine] 10 mg PO TID PRN 11/19/24 11/19/24 History Multivitamins, Thera [Multivitamin 1 tab PO DAILY 11/19/24 11/19/24 History (formulary)] Ondansetron [Zofran] 4 mg PO Q8HR PRN 11/19/24 11/19/24 History Pantoprazole [Protonix] 40 mg PO DAILY 11/19/24 11/19/24 History Thiamine [Vitamin B-1] 100 mg PO DAILY 11/19/24 11/19/24 History traMADol HCL 50 mg PO Q6H PRN 11/19/24 11/19/24 History Allergies Allergy/AdvReac Type Severity Reaction Status Date / Time sulfamethoxazole Allergy Severe Verified 11/19/24 08:56 [From Bactrim] migraines, neck pain, stomach pain trimethoprim [From Bactrim] Allergy Severe Verified 11/19/24 08:56 migraines, neck pain, stomach pain Physical Exam Vitals: Vital Signs Temp Pulse Pulse Resp BP BP Pulse Ox 11/19/24 09:52 95 19 86/64 11/19/24 07:10 87 18 95/54 95 11/19/24 04:54 84 18 94/66 97 11/18/24 23:46 98 F 87 15 97/63 97 11/18/24 21:42 86 16 95/64 95 11/18/24 20:00 97.8 F 86 16 95/62 94 L 11/18/24 18:26 98 20 110/74 96 11/18/24 17:34 98.1 F 114 H 20 89/60 97 Intake and Output 11/18/24 11/19/24 11/19/24 22:59 06:59 14:59 Other: Weight 64.41 kg GENERAL DESCRIPTION: Middle-aged female lying in bed, no distress. No tachypnea or accessory muscle of respiration use. HEENT: Shows Pallor , no scleral icterus. Oral mucous membrane is dry. NECK: Trachea central, no thyromegaly. LUNGS: Unlabored breathing. Clear to auscultation anteriorly. No wheeze or crackle. HEART: S1, S2, regular rate and rhythm. No loud murmur ABDOMEN: Soft, no tenderness , EXTREMITIES: No edema of feet. SKIN: No rash, no masses palpable. NEUROLOGICAL: The patient is awake, alert, oriented x3, mood and affect normal. Results CBC & Chem 7: 11/20/24 08:39 11/20/24 08:39 Labs: Abnormal Lab Results - Last 24 Hours (Table) 11/18/24 11/18/24 11/18/24 Range/Units 18:21 18:21 18:21 WBC 21.3 H (3.8-10.6) k/uL RBC 2.92 L (3.80-5.40) m/uL Hgb 11.3 L (11.4-16.0) gm/dL Hct (34.0-46.0) % MCV 122.7 H D (80.0-100.0) fL MCH 38.8 H (25.0-35.0) pg Neutrophils # 17.7 H (1.3-7.7) k/uL Eosinophils # 1.0 H (0-0.7) k/uL Macrocytosis Marked A PT 13.9 H (10.0-12.5) sec INR 1.3 H (<1.2) Chloride 109 H (98-107) mmol/L Carbon Dioxide 21 L (22-30) mmol/L BUN 99 H (7-17) mg/dL Creatinine 2.63 H (0.52-1.04) mg/dL Glucose 130 H (74-99) mg/dL Plasma Lactic Acid Kevin (0.7-2.0) mmol/L Total Bilirubin 8.5 H (0.2-1.3) mg/dL AST 129 H (14-36) U/L ALT 61 H (4-34) U/L Alkaline Phosphatase 297 H (38-126) U/L Total Protein 5.8 L (6.3-8.2) g/dL Albumin 2.7 L (3.5-5.0) g/dL Lipase 313 H (23-300) U/L Urine Appearance (Clear) Urine Bilirubin (Negative) Urine WBC (0-5) /hpf Ur Squamous Epith Cells (0-4) /hpf Urine Mucus (None) /hpf 11/18/24 11/18/24 11/18/24 Range/Units 18:21 18:21 21:46 WBC (3.8-10.6) k/uL RBC (3.80-5.40) m/uL Hgb (11.4-16.0) gm/dL Hct (34.0-46.0) % MCV (80.0-100.0) fL MCH (25.0-35.0) pg Neutrophils # (1.3-7.7) k/uL Eosinophils # (0-0.7) k/uL Macrocytosis PT (10.0-12.5) sec INR (<1.2) Chloride (98-107) mmol/L Carbon Dioxide (22-30) mmol/L BUN (7-17) mg/dL Creatinine (0.52-1.04) mg/dL Glucose (74-99) mg/dL Plasma Lactic Acid Kevin 4.0 H* 2.5 H* (0.7-2.0) mmol/L Total Bilirubin (0.2-1.3) mg/dL AST (14-36) U/L ALT (4-34) U/L Alkaline Phosphatase (38-126) U/L Total Protein (6.3-8.2) g/dL Albumin (3.5-5.0) g/dL Lipase (23-300) U/L Urine Appearance Cloudy H (Clear) Urine Bilirubin 1+ H (Negative) Urine WBC 7 H (0-5) /hpf Ur Squamous Epith Cells 7 H (0-4) /hpf Urine Mucus Rare H (None) /hpf 11/19/24 11/19/24 11/19/24 Range/Units 01:19 05:51 05:51 WBC 19.1 H (3.8-10.6) k/uL RBC 2.44 L (3.80-5.40) m/uL Hgb 9.5 L D (11.4-16.0) gm/dL Hct 29.9 L (34.0-46.0) % MCV 122.5 H (80.0-100.0) fL MCH 39.0 H (25.0-35.0) pg Neutrophils # 15.2 H (1.3-7.7) k/uL Eosinophils # 1.1 H (0-0.7) k/uL Macrocytosis Marked A PT (10.0-12.5) sec INR (<1.2) Chloride 109 H (98-107) mmol/L Carbon Dioxide (22-30) mmol/L BUN 91 H (7-17) mg/dL Creatinine 2.52 H (0.52-1.04) mg/dL Glucose 127 H (74-99) mg/dL Plasma Lactic Acid Kevin 2.8 H* (0.7-2.0) mmol/L Total Bilirubin 8.1 H (0.2-1.3) mg/dL AST 107 H (14-36) U/L ALT 57 H (4-34) U/L Alkaline Phosphatase 249 H (38-126) U/L Total Protein 5.4 L (6.3-8.2) g/dL Albumin 2.5 L (3.5-5.0) g/dL Lipase (23-300) U/L Urine Appearance (Clear) Urine Bilirubin (Negative) Urine WBC (0-5) /hpf Ur Squamous Epith Cells (0-4) /hpf Urine Mucus (None) /hpf Assessment and Plan (1) Allergy to sulfa drugs Current Visit: Yes Status: Acute Code(s): Z88.2 - ALLERGY STATUS TO SULFONAMIDES SNOMED Code(s): 45494451 (2) Urinary tract infection Current Visit: Yes Status: Acute Code(s): N39.0 - URINARY TRACT INFECTION, SITE NOT SPECIFIED SNOMED Code(s): 05344866 (3) VRE (vancomycin resistant enterococcus) culture positive Current Visit: Yes Status: Acute Code(s): Z22.39 - CARRIER OF OTHER SPECIFIED BACTERIAL DISEASES SNOMED Code(s): 256066628 Plan: 1patient presented to hospital with urinary burning pressure elevated white count concerning for symptomatic UTI failing outpatient oral antibiotic therapy with urine culture recently done grew VRE 2-patient did have elevated white count more likely due to VRE UTI 3-patient did have elevated creatinine to rule out obstructive uropathy for which we will obtain ultrasound abdominal complete as the patient also have elevated liver enzymes 4-Zyvox [id number] p.o. twice a day while waiting for workup to be completed We will follow on clinical condition and cultures to further adjust medication if needed Thank you for this consultation we will follow the patient along with you Dictation was produced using [employer] software. please excuse any grammatical, word or spelling errors. Time with Patient: Greater than 30
[2024-11-20] MEDS: FOLIC ACID 1 MG TAB PO SCH (08:13)
[2024-11-20] MEDS: MULTIVITAMINS, THERA 1 EACH TAB PO SCH (08:13)
[2024-11-20 08:49] LABS: Basophils % (A) 0 %; Eosinophils # (A) 1.3 k/uL (0-0.7); Eosinophils % (A) 7 %; HCT 28.1 % (34.0-46.0); HGB 9.1 gm/dL (11.4-16.0); Hypochromasia Marked; Lymphocytes # (A) 1.4 k/uL (1.0-4.8); Lymphocytes % (A) 8 %; MCH 39.9 pg (25.0-35.0); MCHC 32.4 g/dL (31.0-37.0); MCV 123.3 fL (80.0-100.0); Macrocytosis Marked; Mean Platelet Volume 9.5; Monocytes # (A) 0.5 k/uL (0-1.0); Monocytes % (A) 3 %; Neutrophils # (A) 14.2 k/uL (1.3-7.7); Neutrophils % (A) 81 %; Platelet Count 196 k/uL (150-450); RBC 2.28 m/uL (3.80-5.40); RDW 14.7 % (11.5-15.5); WBC 17.6 k/uL (3.8-10.6)
[2024-11-20 09:09] LABS: ALT 54 U/L (4-34); AST 168 U/L (14-36); African American GFR (CKD) 33 (>60 ml/min/1.73 sqM); Albumin 2.3 g/dL (3.5-5.0); Alkaline Phosphatase 218 U/L (38-126); Anion Gap 11 mmol/L; Bilirubin, Delta 4.2 mg/dL (0.0-0.2); Bilirubin,Unconjugated 1.4 mg/dL (0.0-1.1); Blood Urea Nitrogen 76 mg/dL (7-17); Calcium 8.6 mg/dL (8.4-10.2); Carbon Dioxide 18 mmol/L (22-30); Chloride 112 mmol/L (98-107); Glucose 172 mg/dL (74-99); Lipase 248 U/L (23-300); Non-African American GFR(CKD) 28 (>60 ml/min/1.73 sqM); Potassium 3.1 mmol/L (3.5-5.1); Sodium 141 mmol/L (137-145); Total Bilirubin 7.6 mg/dL (0.2-1.3); Total Protein 5.1 g/dL (6.3-8.2)
--- NOTE | 2024-11-20 10:33 | US ---
EXAMINATION TYPE: US abdomen complete DATE OF EXAM: 11/20/2024 COMPARISON: 10/25/2024 CLINICAL INDICATION: Female, 43 years old with history of Elevated LFT and Cr/pyelonephritis; Elevate d liver enzymes. Exam limited due to body habitus and bowel gas. TECHNIQUE: Grayscale and color Doppler imaging of the abdomen was performed. FINDINGS: EXAM MEASUREMENTS: Liver Length: 19.3 cm Gallbladder Wall: .2 cm CBD: .5 cm, color Doppler imaging was utilized to isolate the common bile duct for measurement. Spleen: 10.6 cm Right Kidney: 9.9 x 3.9 x 4.0 cm Left Kidney: 9.2 x 4.5 x 4.1 cm Pancreas: Obscured by bowel gas Liver: Increased attenuation hepatomegaly Gallbladder: Echogenic foci seen near neck possible stones? Evidence for sonographic Garcia's sign: No CBD: wnl Spleen: wnl Right Kidney: No hydronephrosis or masses seen Left Kidney: No hydronephrosis or masses seen Upper IVC: Limited Abd Aorta: Limited Ascites is visualized. IMPRESSION: 1. Marked ascites. 2. Moderate hepatomegaly and fatty liver. 3. mild cholelithiasis without acute cholecystitis. Sonographic Garcia sign is negative and there is no gallbladder distention or pericholecystic fluid. 4. Pancreas obscured by bowel gas. 5. Unremarkable kidneys and abdominal aorta [facility], , 11/20/2024 10:30 AM
--- NOTE | 2024-11-20 15:21 | P.PN ---
Subjective Progress Note Date: 11/20/24 43-year-old female presenting for evaluation of lower abdominal pain, and diagnosis of drug-resistant urinary tract infection. Patient had urinalysis and urine culture on the and was informed that she had to come to the emergency department for IV antibiotics. Patient has history of liver failure and had recent admission at outside hospital with GI consultation. She is a previous drinker quit approximately 4 months ago. No surgical intervention was performed according to the patient while she was at [facility] and she was subsequently discharged. She denies fever. Reports lower abdominal pain and dysuria. Patient denies any upper abdominal pain. Blood work completed in ED reveals a WBC of 21.3, hemoglobin of 11.3 and platelet count of 276, INR 1.3, sodium 142, potassium 3.5, BUNs/creatinine of 99/2.63, lactic acid of 2.5, total bilirubin elevated at 8.5, AST of 129, ALT 61, amylase of 71, lipase 313, EKG reveals sinus rhythm rate of 97, LA interval 143, QRS duration 84, QTc [address] segment elevation. CT abdomen pelvis showing cholelithiasis, anasarca, no definitive acute process in the lower abdomen. Objective - Vital Signs Vital signs: Vital Signs Temp 97.4 F L 11/20/24 15:13 Pulse 107 H 11/20/24 15:13 Resp 16 11/20/24 15:13 BP 93/61 11/20/24 15:13 Pulse Ox 98 11/20/24 15:13 FiO2 Intake & Output 11/19/24 11/20/24 11/20/24 18:59 06:59 18:59 Output Total 200 150 Balance -200 -150 Output: Urine 200 150 Other: Voiding Method External Catheter External Catheter # Voids 1 # Bowel Movements 1 - Exam General appearance: alert Head exam: Present: atraumatic, normocephalic Eye exam: Present: normal appearance, PERRL, scleral icterus ENT exam: Present: mucous membranes dry Respiratory exam: Present: normal lung sounds bilaterally. Absent: respiratory distress, wheezes Cardiovascular Exam: Present: normal rhythm, tachycardia GI/Abdominal exam: Present: distended, tenderness (Lower abdominal, suprapubic). Absent: guarding Extremities exam: Present: normal inspection Neurological exam: Present: alert, oriented X3 Psychiatric exam: Present: normal affect, normal mood Skin exam: Present: other (jaundice) - Labs CBC & Chem 7: 11/20/24 08:39 11/20/24 08:39 Labs: Abnormal Lab Results - Last 24 Hours (Table) 11/19/24 11/20/24 11/20/24 Range/Units 01:19 08:39 08:39 WBC 17.6 H (3.8-10.6) k/uL RBC 2.28 L (3.80-5.40) m/uL Hgb 9.1 L (11.4-16.0) gm/dL Hct 28.1 L (34.0-46.0) % MCV 123.3 H (80.0-100.0) fL MCH 39.9 H (25.0-35.0) pg Neutrophils # 14.2 H (1.3-7.7) k/uL Eosinophils # 1.3 H (0-0.7) k/uL Macrocytosis Marked A Potassium 3.1 L (3.5-5.1) mmol/L Chloride 112 H (98-107) mmol/L Carbon Dioxide 18 L (22-30) mmol/L BUN 76 H (7-17) mg/dL Creatinine 2.07 H (0.52-1.04) mg/dL Glucose 172 H (74-99) mg/dL Plasma Lactic Acid Kevin 2.8 H* (0.7-2.0) mmol/L Total Bilirubin 7.6 H (0.2-1.3) mg/dL Conjugated Bilirubin 2.0 H (0.0-0.3) mg/dL Unconjugated Bilirubin 1.4 H (0.0-1.1) mg/dL Delta Bilirubin 4.2 H (0.0-0.2) mg/dL AST 168 H (14-36) U/L ALT 54 H (4-34) U/L Alkaline Phosphatase 218 H (38-126) U/L Total Protein 5.1 L (6.3-8.2) g/dL Albumin 2.3 L (3.5-5.0) g/dL Microbiology - Last 24 Hours (Table) 11/18/24 18:21 Blood Culture - Preliminary Blood Assessment and Plan Assessment: 1. UTI; urine culture reveals VRE --Patient is placed on IV Zyvox; blood cultures and urine culture repeated -- Will consult ID 2. Lactic acidosis; likely related to sepsis secondary to UTI -Patient received IV fluid bolus with maintenance fluids; monitor lactic acid levels 3. Acute on chronic kidney disease; will monitor strict GISELLE's, daily weights, renal function electrolytes; avoid nephrotoxins and hypotension 4. Alcoholic liver disease; transaminitis; elevated bilirubin; will monitor liver enzymes as needed 5. Abdominal pain; lipase is mildly elevated at 313; will repeat levels tomorrow morning; patient could be maintained on a clear liquid diet and advance as tolerated 6. Hypothyroidism; levothyroxine 25 mcg daily 7. Gastroesophageal reflux disease; Protonix 40 mg daily 8. Chronic alcohol use; patient quit a few weeks ago; continue with thiamine and folic acid DVT prophylaxis; SCDs CODE STATUS; full code
--- NOTE | 2024-11-21 05:57 | P.PN ---
Subjective Progress Note Date: 11/20/24 Principal diagnosis: Reason for follow-up is VRE UTI Patient is a 43-year-old female with a past medical history significant for reflux gallstone liver disease patient apparently has been dealing with UTI symptoms of burning of urine frequency some suprapubic discomfort. Failing outpatient oral antibiotic with outpatient culture positive for VRE. On today's evaluation that is 11/20/2024, Patient is afebrile patient is currently on room air and denies having any shortness of breath, the patient denies any chest pain or cough, the patient has been has been complaining of some nausea but no vomiting some abdominal discomfort and has developed a rash. Patient white count is down to 17.6 creatinine 2.07 liver enzymes elevated blood cultures pending, ultrasound did not show any hydronephrosis and CBD normal Objective - Vital Signs Vital signs: Vital Signs Temp 97.7 F 11/20/24 19:49 Pulse 103 H 11/20/24 19:49 Resp 18 11/20/24 19:49 BP 105/72 11/20/24 19:49 Pulse Ox 99 11/20/24 19:49 FiO2 Intake & Output 11/20/24 11/20/24 11/21/24 06:59 18:59 06:59 Intake Total 562 Output Total 200 300 Balance -200 262 Intake: Oral 562 Output: Urine 200 300 Other: Voiding Method External Catheter External Catheter # Voids 1 # Bowel Movements 1 1 - Exam GENERAL DESCRIPTION: Middle-age female lying in bed in no distress RESPIRATORY SYSTEM: Unlabored breathing , decreased breath sounds at bases HEART: S1 S2 regular rate and rhythm , ABDOMEN: Soft , no tenderness Patient has developed maculopapular rash mostly to the trunk - Labs CBC & Chem 7: 11/20/24 08:39 11/20/24 08:39 Labs: Abnormal Lab Results - Last 24 Hours (Table) 11/19/24 11/20/24 11/20/24 Range/Units 01:19 08:39 08:39 WBC 17.6 H (3.8-10.6) k/uL RBC 2.28 L (3.80-5.40) m/uL Hgb 9.1 L (11.4-16.0) gm/dL Hct 28.1 L (34.0-46.0) % MCV 123.3 H (80.0-100.0) fL MCH 39.9 H (25.0-35.0) pg Neutrophils # 14.2 H (1.3-7.7) k/uL Eosinophils # 1.3 H (0-0.7) k/uL Macrocytosis Marked A Potassium 3.1 L (3.5-5.1) mmol/L Chloride 112 H (98-107) mmol/L Carbon Dioxide 18 L (22-30) mmol/L BUN 76 H (7-17) mg/dL Creatinine 2.07 H (0.52-1.04) mg/dL Glucose 172 H (74-99) mg/dL Plasma Lactic Acid Kevin 2.8 H* (0.7-2.0) mmol/L Total Bilirubin 7.6 H (0.2-1.3) mg/dL Conjugated Bilirubin 2.0 H (0.0-0.3) mg/dL Unconjugated Bilirubin 1.4 H (0.0-1.1) mg/dL Delta Bilirubin 4.2 H (0.0-0.2) mg/dL AST 168 H (14-36) U/L ALT 54 H (4-34) U/L Alkaline Phosphatase 218 H (38-126) U/L Total Protein 5.1 L (6.3-8.2) g/dL Albumin 2.3 L (3.5-5.0) g/dL Microbiology - Last 24 Hours (Table) 11/18/24 18:21 Blood Culture - Preliminary Blood Assessment and Plan (1) Allergy to sulfa drugs Current Visit: Yes Status: Acute Code(s): Z88.2 - ALLERGY STATUS TO SULFONAMIDES SNOMED Code(s): 54445859 (2) Urinary tract infection Current Visit: Yes Status: Acute Code(s): N39.0 - URINARY TRACT INFECTION, SITE NOT SPECIFIED SNOMED Code(s): 06798619 (3) VRE (vancomycin resistant enterococcus) culture positive Current Visit: Yes Status: Acute Code(s): Z22.39 - CARRIER OF OTHER SPECIFIED BACTERIAL DISEASES SNOMED Code(s): 139975815 (4) Drug rash Current Visit: Yes Status: Acute Code(s): L27.0 - GEN SKIN ERUPTION DUE TO DRUGS AND MEDS TAKEN INTERNALLY SNOMED Code(s): 04250638 Plan: 1patient presented to hospital with urinary burning pressure elevated white count concerning for symptomatic UTI failing outpatient oral antibiotic therapy with urine culture recently done grew VRE 2-patient did have elevated white count more likely due to VRE UTI 3-patient ultrasound did not show any hydronephrosis or dilated CBD 4-patient has developed a rash questionable related to Zyvox nursing staff to confirm with the micro lab, VRE sensitivity to daptomycin, if sensitive to discontinue Zyvox and start the patient on daptomycin Dictation was produced using [employer] dictation software. please excuse any grammatical, word or spelling errors.
[2024-11-21 08:27] LABS: Basophils % (A) 0 %; Eosinophils # (A) 1.6 k/uL (0-0.7); Eosinophils % (A) 8 %; HCT 30.8 % (34.0-46.0); HGB 9.4 gm/dL (11.4-16.0); Hypochromasia Marked; Lymphocytes # (A) 1.4 k/uL (1.0-4.8); Lymphocytes % (A) 7 %; MCHC 30.6 g/dL (31.0-37.0); MCV 124.3 fL (80.0-100.0); Macrocytosis Marked; Mean Platelet Volume 9.5; Monocytes # (A) 0.7 k/uL (0-1.0); Monocytes % (A) 4 %; Neutrophils # (A) 15.7 k/uL (1.3-7.7); Neutrophils % (A) 80 %; Platelet Count 210 k/uL (150-450); RBC 2.48 m/uL (3.80-5.40); RDW 14.1 % (11.5-15.5); WBC 19.7 k/uL (3.8-10.6)
[2024-11-21 08:35] LABS: African American GFR (CKD) 36 (>60 ml/min/1.73 sqM); Anion Gap 12 mmol/L; Blood Urea Nitrogen 66 mg/dL (7-17); Carbon Dioxide 17 mmol/L (22-30); Chloride 109 mmol/L (98-107); Glucose 117 mg/dL (74-99); Non-African American GFR(CKD) 31 (>60 ml/min/1.73 sqM); Potassium 3.2 mmol/L (3.5-5.1); Sodium 138 mmol/L (137-145)
[2024-11-21 10:17] VITALS: BMI 26.8
--- NOTE | 2024-11-21 13:00 | P.PN ---
Subjective 43-year-old female presenting for evaluation of lower abdominal pain, and diagnosis of drug-resistant urinary tract infection. Patient had urinalysis and urine culture on the and was informed that she had to come to the emergency department for IV antibiotics. Patient has history of liver failure and had recent admission at outside hospital with GI consultation. She is a previous drinker quit approximately 4 months ago. No surgical intervention was performed according to the patient while she was at [facility] and she was subsequ ently discharged. She denies fever. Reports lower abdominal pain and dysuria. Patient denies any upper abdominal pain. Blood work completed in ED reveals a WBC of 21.3, hemoglobin of 11.3 and plate let count of 276, INR 1.3, sodium 142, potassium 3.5, BUNs/creatinine of 99/2.63, lactic acid of 2.5, total bilirubin elevated at 8.5, AST of 129, ALT 61, amylase of 71, lipase 313, EKG reveals sinus rhythm rate of 97, MS interval 143, QRS duration 84, QTc [address] segment elevation. CT abdomen pelvis showing cholelithiasis, anasarca, no definitive acute process in the lower abdomen. 11/21 6 patient awake and alert, she is pleasant 43 years old female who was sent initially for UTI with resistant microorganism. Also patient was noticed to have abdominal pain and jaundice on admission Patient's was admitted with VRE UTI, she has been evaluated by ID team and started on daptomycin Also patient was noted to have anasarca and significant ascites and leg edema most likely secondary to liver disease. Patient states that she has been seen GI doctors before but not sure if it was in the office or the hospital, she is not sure what kind of liver disease she has. Patient has history of heavy alcohol drinking. Reports it was last drink 6 months ago. On admission bilirubin was high at 8.5 currently 7.6 and AST 129 up to 168 and ALT 61 down to 54. I talked to the patient about transferring her to another facility like [facility] for there is no GI service coverage in this facility. Patient declines. Risk and benefits explained. Patient blood pressure low normal, slightly tachycardic at 103. WBC was 25,000 currently 19.7, hemoglobin 9.4, creatinine trending down 2.6 down to 1.9 with baseline 0.6-0.[address] of the abdomen pelvis without contrast showing anasarca with ascites and bilateral pleural effusion and cholelithiasis Abdominal ultrasound showing marked ascites and mild cholelithiasis without acute cholecystitis Review of systems CONSTITUTIONAL: No fever, no malaise, no fatigue. HEENT: No recent visual problems or hearing problems. Denied any sore throat. HEMATOLOGICAL: Denies any bleeding or petechiae. GENITOURINARY: Denies any burning micturition, frequency, or urgency. MUSCULOSKELETAL/RHEUMATOLOGICAL: Denies any joint pain, swelling, or any muscle pain. ENDOCRINE: Denies any polyuria or polydipsia. Active Medications Generic Name Dose Route Start Last Admin Trade Name Freq PRN Reason Stop Dose Admin Folic Acid 1 mg 11/20/24 09:00 11/21/24 08:11 Folic Acid 1 Mg Tab PO 1 mg DAILY RAEANN Administration Hydromorphone HCl 0.5 mg 11/18/24 20:42 11/20/24 09:13 Hydromorphone 0.5 Mg/0.5 Ml Syringe IVP 0.5 mg Q3HR PRN Administration Moderate Pain (Scale 4 to 6) Daptomycin 400 mg/ Sodium 50 mls @ 100 mls/hr 11/20/24 12:00 11/20/24 11:25 Chloride IVPB 100 mls/hr Q48H RAEANN Administration Protocol Levothyroxine Sodium 25 mcg 11/19/24 12:15 11/21/24 06:17 Levothyroxine 25 Mcg Tab PO 25 mcg DAILY@0630 RAEANN Administration Midodrine 10 mg 11/19/24 12:09 Midodrine 5 Mg Tab PO TID PRN low bp Multivitamins 1 each 11/20/24 09:00 11/21/24 08:11 Multivitamins, Thera 1 Each Tab PO 1 each DAILY RAEANN Administration Naloxone HCl 0.2 mg 11/18/24 20:42 Naloxone 0.4 Mg/Ml 1 Ml Vial IV Q2M PRN Opioid Reversal Pantoprazole Sodium 40 mg 11/19/24 12:15 11/21/24 08:11 Pantoprazole 40 Mg Tablet PO 40 mg DAILY RAEANN Administration Thiamine HCl 100 mg 11/19/24 12:15 11/21/24 08:11 Thiamine 100 Mg Tab PO 100 mg DAILY RAEANN Administration Tramadol HCl 50 mg 11/19/24 12:09 Tramadol 50 Mg Tab PO Q6H PRN Pain Objective - Vital Signs Vital signs: Vital Signs Temp 97.7 F 11/21/24 08:00 Pulse 103 H 11/21/24 08:00 Resp 18 11/21/24 08:00 BP 94/54 11/21/24 08:00 Pulse Ox 96 11/21/24 08:00 FiO2 Intake & Output 11/20/24 11/21/24 11/21/24 18:59 06:59 18:59 Intake Total 562 10 Output Total 300 200 Balance 262 -190 Weight 64.41 kg Intake: IV 10 Invasive Line 1 10 Oral 562 Output: Urine 300 200 Other: Voiding Method External Catheter External Catheter External Catheter # Voids 1 # Bowel Movements 1 1 - Exam GENERAL: The patient is alert and oriented x3, not in any acute distress. Well developed, well nourished. HEENT: Pupils are round and equally reacting to light. EOMI. No scleral icterus. No conjunctival pallor. Normocephalic, atraumatic. No pharyngeal erythema. No thyromegaly. CARDIOVASCULAR: S1 and S2 present. No murmurs, rubs, or gallops. PULMONARY: Chest is clear to auscultation, no wheezing , no crackles. -ABDOMEN: Soft, nontender, distended, normoactive bowel sounds. No palpable organomegaly. MUSCULOSKELETAL: No joint swelling or deformity. - EXTREMITIES: No cyanosis, clubbing, bilateral pitting pedal edema. NEUROLOGICAL: Gross neurological examination did not reveal any focal deficits. SKIN: No rashes. no petechiae. - Labs CBC & Chem 7: 11/21/24 07:25 11/21/24 07:25 Labs: Abnormal Lab Results - Last 24 Hours (Table) 11/21/24 11/21/24 Range/Units 07:25 07:25 WBC 19.7 H (3.8-10.6) k/uL RBC 2.48 L (3.80-5.40) m/uL Hgb 9.4 L (11.4-16.0) gm/dL Hct 30.8 L (34.0-46.0) % MCV 124.3 H (80.0-100.0) fL MCH 38.0 H (25.0-35.0) pg MCHC 30.6 L (31.0-37.0) g/dL Neutrophils # 15.7 H (1.3-7.7) k/uL Eosinophils # 1.6 H (0-0.7) k/uL Macrocytosis Marked A Potassium 3.2 L (3.5-5.1) mmol/L Chloride 109 H (98-107) mmol/L Carbon Dioxide 17 L (22-30) mmol/L BUN 66 H (7-17) mg/dL Creatinine 1.93 H (0.52-1.04) mg/dL Glucose 117 H (74-99) mg/dL Microbiology - Last 24 Hours (Table) 11/18/24 18:21 Blood Culture - Preliminary Blood Assessment and Plan Assessment: VRE UTI Alcoholic liver disease possible cirrhosis. With transaminitis and elevated bilirubin Acute kidney injury, improving Lactic acidemia, improved and lactic acid back to reference range at 1.9 Hypothyroidism Gastroesophageal reflux disease Chronic alcohol use disorder Fluid overload and anasarca most likely secondary to above Plan: PLAN: Continue with daptomycin as per ID team will follow the case closely Follow-up urine and blood culture Start the patient on Lasix for now and may be later add Aldactone Monitor creatinine I counseled the patient about transfer her to any other facility for there is no GI coverage in this facility. Patient declines and wants to stay in [facility] for now Consult IR for possible paracentesis Labs and medication were reviewed.. Continue same treatment. Continue with symptomatic treatment. Resume home medication. Monitor labs and vitals. DVT and GI prophylaxis. Further recommendations as per clinical course of the patient DVT prophylaxis: Subcutaneous heparin GI Prophylaxis: Pepcid PT/OT: Pending Prognosis is guarded
--- NOTE | 2024-11-21 15:23 | US ---
EXAMINATION TYPE: US paracentesis abd w/image DATE OF EXAM: 11/21/2024 2:47 PM COMPARISON: None. Previous Paracentesis CLINICAL INDICATION: Female, 43 years old with history of Ascites; , ascites TECHNIQUE/FINDINGS: The procedure was discussed with the patient. The risks, complications, benefits, and alternatives we re discussed and any questions were answered. Informed consent was obtained. The patient was placed s upine on the ultrasound table and prepped and draped in the usual sterile fashion. All elements of maximal barrier technique were utilized. Under ultrasound guidance, access into the right lower quadrant was obtained, via the paracentesis catheter system and direct ultrasound guidanc e. Approximately 7 liters of straw-colored fluid was removed. The patient was stable throughout the proc edure and remained stable upon discharge from Department of Radiology. IMPRESSION: Successful paracentesis under ultrasound guidance. [facility] Ashleigh Cid, , 11/21/2024 3:21 PM
[2024-11-21] MEDS: FUROSEMIDE 20 MG TAB PO SCH (16:47)
[2024-11-21] MEDS: POTASSIUM CHLORIDE ER 20 MEQ TAB.ER PO STA (16:48)
[2024-11-21] MEDS: ALBUMIN HUMAN 25% 50 ML in EMPTY BAG 1 BAG IVPB SCH (16:48)
--- NOTE | 2024-11-21 17:24 | CDI ---
Documentation Clarification Form Date: 11/21/2024 From: Wendy Trujillo Contact via Snapsort Email: [email or web address] Admit Date: 11/18/2024 08:42:00 PM Patient Name: Kerry Saucedo Visit Number: [id number] ATTENTION: The Clinical Documentation Specialists (CDI) and [facility] Coding Staff appreciate your assistance in clarifying documentation. Please respond to the clarification below the line at the bottom and electronically sign. The CDI & [facility] Coding staff will review the response and follow-up if needed. Please note: Queries are made part of the Legal Health Record. If you have any questions, please contact the author of this message via ITS. Doctor/Provider: Abundio E Sheet Lactic acidosis; likely related to sepsis secondary to UTI is documented in the H&P and IM PN on 11/20, but is not noted in subsequent documentation. Clarification is requested. History/Risk Factors: 43yo with a h/o ETOH liver failure presented with a VRE UTI. Per the H&P, the pt had a UA/UC at an outside facility on the and was told to come to the ER for IV Abx. Clinical Indicators: Labs: 11/18 WBC 21.3, Neut 17.7, LA 4.0-2.5-2.8 11/20: WBC 17.6, Neut 14.2 UA 11/18 yellow cloudy urine, 1+ bilirubin, 7 WBC, rare mucus Blood culture 11/18: no growth at 48 hours Vital Signs: 11/18 @ 1734 98.1, 114, 20, 89/60, 97% on RA Treatment: Daptomycin IV, Zyvox IV/po Please clarify if the sepsis is: [ x ] confirmed, remains under treatment [ ] confirmed, resolved [ ] ruled out [ ] Other condition, please specify [ ] Unable to determine (Template Last Revised: January 2021) MTDD
[2024-11-21] MEDS: FAMOTIDINE 20 MG/2 ML VIAL IV SCH (20:29)
[2024-11-21] MEDS: HEPARIN SODIUM,PORCINE 5,000 UNIT/ML 1 ML VIAL SQ SCH (20:29)
[2024-11-21] MEDS: MIDODRINE 5 MG TAB PO PRN (20:29)
[2024-11-22 04:01] LABS: Appearance,BF Clear (Clear)
[2024-11-22 07:12] LABS: Basophils % (A) 0 %; Eosinophils # (A) 1.4 k/uL (0-0.7); Eosinophils % (A) 8 %; HCT 26.1 % (34.0-46.0); HGB 8.5 gm/dL (11.4-16.0); Hypochromasia Slight; Lymphocytes # (A) 1.6 k/uL (1.0-4.8); Lymphocytes % (A) 10 %; MCH 38.8 pg (25.0-35.0); MCHC 32.5 g/dL (31.0-37.0); MCV 119.4 fL (80.0-100.0); Macrocytosis Marked; Mean Platelet Volume 9.7; Monocytes # (A) 0.6 k/uL (0-1.0); Monocytes % (A) 3 %; Neutrophils # (A) 12.7 k/uL (1.3-7.7); Neutrophils % (A) 77 %; Platelet Count 193 k/uL (150-450); RBC 2.19 m/uL (3.80-5.40); RDW 14.2 % (11.5-15.5); WBC 16.4 k/uL (3.8-10.6)
[2024-11-22 07:17] LABS: ALT 55 U/L (4-34); AST 144 U/L (14-36); African American GFR (CKD) 39 (>60 ml/min/1.73 sqM); Albumin 2.4 g/dL (3.5-5.0); Alkaline Phosphatase 217 U/L (38-126); Anion Gap 5 mmol/L; Bilirubin, Conjugated 1.8 mg/dL (0.0-0.3); Bilirubin, Delta 3.5 mg/dL (0.0-0.2); Bilirubin,Unconjugated 1.5 mg/dL (0.0-1.1); Blood Urea Nitrogen 57 mg/dL (7-17); Calcium 8.6 mg/dL (8.4-10.2); Carbon Dioxide 19 mmol/L (22-30); Chloride 113 mmol/L (98-107); Glucose 105 mg/dL (74-99); Non-African American GFR(CKD) 34 (>60 ml/min/1.73 sqM); Potassium 3.1 mmol/L (3.5-5.1); Sodium 137 mmol/L (137-145); Total Bilirubin 6.8 mg/dL (0.2-1.3); Total Protein 4.8 g/dL (6.3-8.2)
--- NOTE | 2024-11-22 09:08 | P.PN ---
Subjective Progress Note Date: 11/21/24 Principal diagnosis: Reason for follow-up is VRE UTI Patient is a 43-year-old female with a past medical history significant for reflux gallstone liver disease patient apparently has been dealing with UTI symptoms of burning of urine frequency some suprapubic discomfort. Failing outpatient oral antibiotic with outpatient culture positive for VRE. On today's evaluation that is 11/21/2024, patient has been afebrile, patient is breathing comfortably and is currently on room air, patient denies having any significant cough no chest pain, patient denies nausea vomiting or diarrhea and no abdominal pain, mention rash is slightly decreased in intensity. Patient white count is 19.7 creatinine is 1.93 Objective - Vital Signs Vital signs: Vital Signs Temp 97.7 F 11/21/24 08:00 Pulse 103 H 11/21/24 08:00 Resp 18 11/21/24 08:00 BP 94/54 11/21/24 08:00 Pulse Ox 96 11/21/24 08:00 FiO2 Intake & Output 11/20/24 11/21/24 11/21/24 18:59 06:59 18:59 Intake Total 562 10 Output Total 300 200 Balance 262 -190 Weight 64.41 kg Intake: IV 10 Invasive Line 1 10 Oral 562 Output: Urine 300 200 Other: Voiding Method External Catheter External Catheter External Catheter # Voids 1 # Bowel Movements 1 1 - Exam GENERAL DESCRIPTION: Middle-age female lying in bed in no distress RESPIRATORY SYSTEM: Unlabored breathing , decreased breath sounds at bases HEART: S1 S2 regular rate and rhythm , ABDOMEN: Soft , no tenderness Patient has developed maculopapular rash mostly to the trunk - Labs CBC & Chem 7: 11/22/24 06:43 11/22/24 06:43 Labs: Abnormal Lab Results - Last 24 Hours (Table) 11/21/24 11/21/24 Range/Units 07:25 07:25 WBC 19.7 H (3.8-10.6) k/uL RBC 2.48 L (3.80-5.40) m/uL Hgb 9.4 L (11.4-16.0) gm/dL Hct 30.8 L (34.0-46.0) % MCV 124.3 H (80.0-100.0) fL MCH 38.0 H (25.0-35.0) pg MCHC 30.6 L (31.0-37.0) g/dL Neutrophils # 15.7 H (1.3-7.7) k/uL Eosinophils # 1.6 H (0-0.7) k/uL Macrocytosis Marked A Potassium 3.2 L (3.5-5.1) mmol/L Chloride 109 H (98-107) mmol/L Carbon Dioxide 17 L (22-30) mmol/L BUN 66 H (7-17) mg/dL Creatinine 1.93 H (0.52-1.04) mg/dL Glucose 117 H (74-99) mg/dL Microbiology - Last 24 Hours (Table) 11/18/24 18:21 Blood Culture - Preliminary Blood Assessment and Plan (1) Allergy to sulfa drugs Current Visit: Yes Status: Acute Code(s): Z88.2 - ALLERGY STATUS TO SULFONAMIDES SNOMED Code(s): 49854670 (2) Urinary tract infection Current Visit: Yes Status: Acute Code(s): N39.0 - URINARY TRACT INFECTION, SITE NOT SPECIFIED SNOMED Code(s): 29035752 (3) VRE (vancomycin resistant enterococcus) culture positive Current Visit: Yes Status: Acute Code(s): Z22.39 - CARRIER OF OTHER SPECIFIED BACTERIAL DISEASES SNOMED Code(s): 002373264 (4) Drug rash Current Visit: Yes Status: Acute Code(s): L27.0 - GEN SKIN ERUPTION DUE TO DRUGS AND MEDS TAKEN INTERNALLY SNOMED Code(s): 46717168 Plan: 1patient presented to hospital with urinary burning pressure elevated white count concerning for symptomatic UTI failing outpatient oral antibiotic therapy with urine culture recently done grew VRE 2-patient did have elevated white count more likely due to VRE UTI 3-patient ultrasound did not show any hydronephrosis or dilated CBD 4-patient has developed a rash questionable related to Zyvox which was discontinued patient still have significant rash questionable related to Dilaudid and need to be discontinued for now continue with the daptomycin Dictation was produced using [employer] dictation software. please excuse any grammatical, word or spelling errors. Time with Patient: Less than 30
--- NOTE | 2024-11-22 10:37 | P.PN ---
Subjective 43-year-old female presenting for evaluation of lower abdominal pain, and diagnosis of drug-resistant urinary tract infection. Patient had urinalysis and urine culture on the and was informed that she had to come to the emergency department for IV antibiotics. Patient has history of liver failure and had recent admission at outside hospital with GI consultation. She is a previous drinker quit approximately 4 months ago. No surgical intervention was performed according to the patient while she was at [facility] and she was subsequ ently discharged. She denies fever. Reports lower abdominal pain and dysuria. Patient denies any upper abdominal pain. Blood work completed in ED reveals a WBC of 21.3, hemoglobin of 11.3 and plate let count of 276, INR 1.3, sodium 142, potassium 3.5, BUNs/creatinine of 99/2.63, lactic acid of 2.5, total bilirubin elevated at 8.5, AST of 129, ALT 61, amylase of 71, lipase 313, EKG reveals sinus rhythm rate of 97, AK interval 143, QRS duration 84, QTc [address] segment elevation. CT abdomen pelvis showing cholelithiasis, anasarca, no definitive acute process in the lower abdomen. 11/21 6 patient awake and alert, she is pleasant 43 years old female who was sent initially for UTI with resistant microorganism. Also patient was noticed to have abdominal pain and jaundice on admission Patient's was admitted with VRE UTI, she has been evaluated by ID team and started on daptomycin Also patient was noted to have anasarca and significant ascites and leg edema most likely secondary to liver disease. Patient states that she has been seen GI doctors before but not sure if it was in the office or the hospital, she is not sure what kind of liver disease she has. Patient has history of heavy alcohol drinking. Reports it was last drink 6 months ago. On admission bilirubin was high at 8.5 currently 7.6 and AST 129 up to 168 and ALT 61 down to 54. I talked to the patient about transferring her to another facility like [facility] for there is no GI service coverage in this facility. Patient declines. Risk and benefits explained. Patient blood pressure low normal, slightly tachycardic at 103. WBC was 25,000 currently 19.7, hemoglobin 9.4, creatinine trending down 2.6 down to 1.9 with baseline 0.6-0.[address] of the abdomen pelvis without contrast showing anasarca with ascites and bilateral pleural effusion and cholelithiasis Abdominal ultrasound showing marked ascites and mild cholelithiasis without acute cholecystitis 11/22 Patient is awake alert today, she feels tired. Jaundiced She complains from frequent bowel movement about 8/day, also abdominal pain with bowel movements only. However on exam she has right upper quadrant tenderness Her abdomen is much less distended. She is status post paracentesis yesterday with 6.7 L taken out, after the procedure she received 2 units of albumin. Blood pressure this morning 88/53 and labs showing hemoglobin 8.5. Creatinine trending down to 1.7 Liver enzymes and bilirubin slightly less than yesterday, with bilirubin 6.8, AST 144 and ALT 55 Blood culture pending Ascites cytology and culture pending C. difficile is requested and is pending Patient remains on daptomycin. Also she started on small dose of Lasix 20 mg twice daily. And low potassium been replaced Will give her another 2 doses of albumin today with close monitoring Review of systems CONSTITUTIONAL: No fever, no malaise, no fatigue. HEENT: No recent visual problems or hearing problems. Denied any sore throat. HEMATOLOGICAL: Denies any bleeding or petechiae. GENITOURINARY: Denies any burning micturition, frequency, or urgency. MUSCULOSKELETAL/RHEUMATOLOGICAL: Denies any joint pain, swelling, or any muscle pain. ENDOCRINE: Denies any polyuria or polydipsia. Active Medications Generic Name Dose Route Start Last Admin Trade Name Freq PRN Reason Stop Dose Admin Famotidine 10 mg 11/21/24 21:00 11/22/24 07:52 Famotidine 20 Mg/2 Ml Vial IV 10 mg Q12HR RAEANN Administration Folic Acid 1 mg 11/20/24 09:00 11/22/24 07:52 Folic Acid 1 Mg Tab PO 1 mg DAILY RAEANN Administration Furosemide 20 mg 11/21/24 16:00 11/22/24 07:52 Furosemide 20 Mg Tab PO 20 mg BID@0900,1600 RAEANN Administration Heparin Sodium (Porcine) 5,000 unit 11/21/24 21:00 11/22/24 07:52 Heparin Sodium,Porcine 5,000 Unit/Ml 1 Ml Vial SQ 5,000 unit Q12HR RAEANN Administration Hydromorphone HCl 0.5 mg 11/18/24 20:42 11/20/24 09:13 Hydromorphone 0.5 Mg/0.5 Ml Syringe IVP 0.5 mg Q3HR PRN Administration Moderate Pain (Scale 4 to 6) Daptomycin 400 mg/ Sodium 50 mls @ 100 mls/hr 11/20/24 12:00 11/20/24 11:25 Chloride IVPB 100 mls/hr Q48H RAEANN Administration Protocol Albumin Human 50 ml/ IV 50 mls @ 50 mls/hr 11/22/24 11:00 Solution IVPB 11/22/24 12:59 Q1H RAEANN Levothyroxine Sodium 25 mcg 11/19/24 12:15 11/22/24 06:12 Levothyroxine 25 Mcg Tab PO 25 mcg DAILY@0630 RAEANN Administration Midodrine 10 mg 11/19/24 12:09 11/22/24 06:11 Midodrine 5 Mg Tab PO 10 mg TID PRN Administration low bp Multivitamins 1 each 11/20/24 09:00 11/22/24 07:52 Multivitamins, Thera 1 Each Tab PO 1 each DAILY RAEANN Administration Naloxone HCl 0.2 mg 11/18/24 20:42 Naloxone 0.4 Mg/Ml 1 Ml Vial IV Q2M PRN Opioid Reversal Pantoprazole Sodium 40 mg 11/19/24 12:15 11/22/24 07:52 Pantoprazole 40 Mg Tablet PO 40 mg DAILY RAEANN Administration Potassium Chloride 40 meq 11/22/24 10:33 Potassium Chloride Er 20 Meq Tab.Er PO 11/22/24 10:34 ONCE STA Thiamine HCl 100 mg 11/19/24 12:15 11/22/24 07:52 Thiamine 100 Mg Tab PO 100 mg DAILY RAEANN Administration Tramadol HCl 50 mg 11/19/24 12:09 Tramadol 50 Mg Tab PO Q6H PRN Pain Objective - Vital Signs Vital signs: Vital Signs Temp 97.9 F 11/22/24 07:48 Pulse 94 11/22/24 07:48 Resp 17 11/22/24 07:48 BP 88/53 11/22/24 07:48 Pulse Ox 98 11/22/24 07:48 FiO2 Intake & Output 11/21/24 11/22/24 11/22/24 18:59 06:59 18:59 Intake Total 236 1080 Output Total 200 250 Balance 36 830 Weight 64.41 kg 69.8 kg Intake: Oral 236 1080 Output: Urine 200 250 Other: Voiding Method External Catheter External Catheter External Catheter - Exam GENERAL: The patient is alert and oriented x3, not in any acute distress. Well developed, well nourished. HEENT: Pupils are round and equally reacting to light. EOMI. No scleral icterus. No conjunctival pallor. Normocephalic, atraumatic. No pharyngeal erythema. No thyromegaly. CARDIOVASCULAR: S1 and S2 present. No murmurs, rubs, or gallops. PULMONARY: Chest is clear to auscultation, no wheezing , no crackles. -ABDOMEN: Soft, nontender, distended, normoactive bowel sounds. No palpable organomegaly. MUSCULOSKELETAL: No joint swelling or deformity. - EXTREMITIES: No cyanosis, clubbing, bilateral pitting pedal edema. NEUROLOGICAL: Gross neurological examination did not reveal any focal deficits. SKIN: No rashes. no petechiae. - Labs CBC & Chem 7: 11/22/24 06:43 11/22/24 06:43 Labs: Abnormal Lab Results - Last 24 Hours (Table) 11/22/24 11/22/24 Range/Units 06:43 06:43 WBC 16.4 H (3.8-10.6) k/uL RBC 2.19 L (3.80-5.40) m/uL Hgb 8.5 L (11.4-16.0) gm/dL Hct 26.1 L (34.0-46.0) % MCV 119.4 H (80.0-100.0) fL MCH 38.8 H (25.0-35.0) pg Neutrophils # 12.7 H (1.3-7.7) k/uL Eosinophils # 1.4 H (0-0.7) k/uL Macrocytosis Marked A Potassium 3.1 L (3.5-5.1) mmol/L Chloride 113 H (98-107) mmol/L Carbon Dioxide 19 L (22-30) mmol/L BUN 57 H (7-17) mg/dL Creatinine 1.78 H (0.52-1.04) mg/dL Glucose 105 H (74-99) mg/dL Total Bilirubin 6.8 H (0.2-1.3) mg/dL Conjugated Bilirubin 1.8 H (0.0-0.3) mg/dL Unconjugated Bilirubin 1.5 H (0.0-1.1) mg/dL Delta Bilirubin 3.5 H (0.0-0.2) mg/dL AST 144 H (14-36) U/L ALT 55 H (4-34) U/L Alkaline Phosphatase 217 H (38-126) U/L Total Protein 4.8 L (6.3-8.2) g/dL Albumin 2.4 L (3.5-5.0) g/dL Microbiology - Last 24 Hours (Table) 11/18/24 18:21 Blood Culture - Preliminary Blood Assessment and Plan Assessment: VRE UTI Alcoholic liver disease possible cirrhosis. With transaminitis and elevated bilirubin Acute kidney injury, improving Lactic acidemia, improved and lactic acid back to reference range at 1.9 Hypothyroidism Gastroesophageal reflux disease Chronic alcohol use disorder Fluid overload and anasarca most likely secondary to above Plan: PLAN: Continue with daptomycin as per ID team will follow the case closely Follow-up urine and blood culture Start the patient on Lasix for now and may be later add Aldactone Monitor creatinine Follow-up cytology and culture from the ascites fluid on 11/21 Monitor blood pressure. Will add midodrine 5 mg 3 times daily I counseled the patient about transfer her to any other facility for there is no GI coverage in this facility. Patient declines and wants to stay in [facility] for now Labs and medication were reviewed.. Continue same treatment. Continue with symptomatic treatment. Resume home medication. Monitor labs and vitals. DVT and GI prophylaxis. Further recommendations as per clinical course of the patient DVT prophylaxis: Subcutaneous heparin GI Prophylaxis: Pepcid PT/OT: Pending Prognosis is guarded
[2024-11-22] MEDS: POTASSIUM CHLORIDE ER 20 MEQ TAB.ER PO STA (10:54)
[2024-11-22] MEDS: ALBUMIN HUMAN 25% 50 ML in EMPTY BAG 2 BAG IVPB SCH (10:56)
[2024-11-22] MEDS: MIDODRINE 5 MG TAB PO SCH (11:49)
--- NOTE | 2024-11-22 13:59 | P.CONS ---
History of Present Illness - Reason for Consult Consult date: 11/22/24 Eosinophilia - History of Present Illness Ms. Saucedo is a 43-year-old woman with a past medical history significant for alcoholic cirrhosis who was recently diagnosed with VRE UTI on 11/10/2024 for whom hematology is consulted with regards to eosinophilia. Urine culture on 11/10/2024 was consistent with Enterococcus faecium. She was started on oral antibiotic outpatient, but presented to [facility] ED on 11/18/2024 with persistent suprapubic tenderness. On admission, CBC revealed WBC 21.3 (ANC 17.7, eosinophil count 1), hemoglobin 11.3 (MCV 122.7), platelets 276. Creatinine was 2.63, total bilirubin 8.5, AST 129, ALT 61, alkaline phosphatase 267. Labs on 11/10/2024 revealed creatinine 5.2, total bilirubin 15.2 with TSH 5.74 and free T4 1.18. She was started on linezolid that was subsequently stopped due to reaction with rash and is currently on daptomycin. She did undergo paracentesis on 11/21/2024 with 7 L of straw-colored fluid removed with cytology pending. Iron studies, vitamin B12, and folic acid have been ordered per primary team. Review of Systems 14 point review of systems was conducted pertinent positives and negatives as noted per HPI Past Medical History Past Medical History: GERD/Reflux, Liver Disease Additional Past Medical History / Comment(s): gallstones; hernia History of Any Multi-Drug Resistant Organisms: VRE Year Discovered:: 11/10/24 MDRO Source:: urine Past Surgical History: Appendectomy Past Anesthesia/Blood Transfusion Reactions: Motion Sickness Past Psychological History: No Psychological Hx Reported Smoking Status: Never smoker Past Alcohol Use History: None Reported, Heavy Past Drug Use History: None Reported - Past Family History Mother Family Medical History: Cancer Additional Family Medical History / Comment(s): Passed from Breast CA Father History Unknown: Yes Additional Family Medical History / Comment(s): Dose not know bio dad Medications and Allergies Home Medications Medication Instructions Recorded Confirmed Type Levothyroxine Sodium [Synthroid] 25 mcg PO DAILY 10/25/24 11/19/24 History Folic Acid 1 mg PO DAILY 11/19/24 11/19/24 History Midodrine [ProAmatine] 10 mg PO TID PRN 11/19/24 11/19/24 History Multivitamins, Thera [Multivitamin 1 tab PO DAILY 11/19/24 11/19/24 History (formulary)] Ondansetron [Zofran] 4 mg PO Q8HR PRN 11/19/24 11/19/24 History Pantoprazole [Protonix] 40 mg PO DAILY 11/19/24 11/19/24 History Thiamine [Vitamin B-1] 100 mg PO DAILY 11/19/24 11/19/24 History traMADol HCL 50 mg PO Q6H PRN 11/19/24 11/19/24 History Allergies Allergy/AdvReac Type Severity Reaction Status Date / Time sulfamethoxazole Allergy Severe Verified 11/19/24 08:56 [From Bactrim] migraines, neck pain, stomach pain trimethoprim [From Bactrim] Allergy Severe Verified 11/19/24 08:56 migraines, neck pain, stomach pain Physical Exam Vitals: Vital Signs Temp Pulse Resp BP BP Pulse Ox 11/22/24 07:48 97.9 F 94 17 88/53 98 11/22/24 04:30 97.9 F 88 16 83/51 11/21/24 23:31 97.9 F 84 16 88/54 97 11/21/24 22:00 88/56 11/21/24 19:57 98.0 F 101 H 16 84/52 98 11/21/24 16:46 103 H 18 101/57 96 11/21/24 15:15 100 16 93/64 99 11/21/24 14:52 97 18 92/61 99 11/21/24 14:37 109 H 18 99/67 97 11/21/24 12:00 99 18 95/59 99 Intake and Output 11/21/24 11/22/24 11/22/24 22:59 06:59 14:59 Intake Total 1198 Output Total 200 250 Balance 998 -250 Intake: Oral 1198 Output: Urine 200 250 Other: Voiding Method External Catheter External Catheter External Catheter Weight 69.8 kg - Constitutional General appearance: cooperative, no acute distress - EENT Eyes: EOMI - Respiratory Respiratory: bilateral: CTA - Cardiovascular Rhythm: regular leg Peripheral Edema: bilateral: 2+ (Pitting edema) - Gastrointestinal General gastrointestinal: distended, normal bowel sounds, no tenderness - Integumentary Lacy red rash noted on the abdomen diffusely Integumentary: rash - Neurologic Neurologic: CNII-XII intact Results CBC & Chem 7: 11/22/24 06:43 11/22/24 06:43 Labs: Abnormal Lab Results - Last 24 Hours (Table) 11/22/24 11/22/24 Range/Units 06:43 06:43 WBC 16.4 H (3.8-10.6) k/uL RBC 2.19 L (3.80-5.40) m/uL Hgb 8.5 L (11.4-16.0) gm/dL Hct 26.1 L (34.0-46.0) % MCV 119.4 H (80.0-100.0) fL MCH 38.8 H (25.0-35.0) pg Neutrophils # 12.7 H (1.3-7.7) k/uL Eosinophils # 1.4 H (0-0.7) k/uL Macrocytosis Marked A Potassium 3.1 L (3.5-5.1) mmol/L Chloride 113 H (98-107) mmol/L Carbon Dioxide 19 L (22-30) mmol/L BUN 57 H (7-17) mg/dL Creatinine 1.78 H (0.52-1.04) mg/dL Glucose 105 H (74-99) mg/dL Total Bilirubin 6.8 H (0.2-1.3) mg/dL Conjugated Bilirubin 1.8 H (0.0-0.3) mg/dL Unconjugated Bilirubin 1.5 H (0.0-1.1) mg/dL Delta Bilirubin 3.5 H (0.0-0.2) mg/dL AST 144 H (14-36) U/L ALT 55 H (4-34) U/L Alkaline Phosphatase 217 H (38-126) U/L Total Protein 4.8 L (6.3-8.2) g/dL Albumin 2.4 L (3.5-5.0) g/dL Microbiology - Last 24 Hours (Table) 11/18/24 18:21 Blood Culture - Preliminary Blood Assessment and Plan (1) Eosinophilia due to infectious disease Current Visit: Yes Status: Acute Code(s): B99.9 - UNSPECIFIED INFECTIOUS DISEASE; D72.18 - EOSINOPHILIA IN DISEASES CLASSIFIED ELSEWHERE SNOMED Code(s): 056521369 (2) Macrocytic anemia Current Visit: Yes Status: Acute Code(s): D53.9 - NUTRITIONAL ANEMIA, UN SPECIFIED SNOMED Code(s): 91215805 (3) VRE (vancomycin resistant enterococcus) culture positive Current Visit: Yes Status: Acute Code(s): Z22.39 - CARRIER OF OTHER SPECIFIED BACTERIAL DISEASES SNOMED Code(s): 782228082 Plan: #Eosinophilia, neutrophilic leukocytosis -Noted to have mild absolute eosinophilia along with neutrophilic leukocytosis on labs since 11/10/2024 when she was diagnosed with VRE UTI -She was started on nitrofurantoin and was subsequently started on IV antibiotics since 11/18/2024 -Since admission, she has been having progressive improvement in her neutrophilic leukocytosis -I do suspect her eosinophilia and neutrophilic leukocytosis are secondary to VRE UTI along with possible drug-induced eosinophilia caused by antibiotics -Continue treatment for VRE UTI per primary and infectious disease teams #Macrocytic anemia -Likely secondary to prior alcohol abuse superimposed on acute inflammation from VRE UTI -Sick euthyroid profile noted on labs from 11/10/2024 -Agree with workup ordered per primary team including iron, vitamin B12, and folic acid to rule out nutritional etiologies #VRE UTI -Continue treatment per primary infectious disease teams Purnima Villalobos MD
[2024-11-23 08:02] LABS: Basophils % (A) 0 %; Eosinophils # (A) 1.6 k/uL (0-0.7); Eosinophils % (A) 9 %; HCT 28.2 % (34.0-46.0); HGB 8.9 gm/dL (11.4-16.0); Hypochromasia Moderate; Lymphocytes # (A) 1.6 k/uL (1.0-4.8); Lymphocytes % (A) 9 %; MCH 38.5 pg (25.0-35.0); MCHC 31.7 g/dL (31.0-37.0); MCV 121.2 fL (80.0-100.0); Macrocytosis Marked; Mean Platelet Volume 9.6; Monocytes # (A) 0.7 k/uL (0-1.0); Monocytes % (A) 4 %; Neutrophils # (A) 14.5 k/uL (1.3-7.7); Neutrophils % (A) 78 %; Platelet Count 206 k/uL (150-450); RBC 2.32 m/uL (3.80-5.40); RDW 14.1 % (11.5-15.5); WBC 18.5 k/uL (3.8-10.6)
[2024-11-23 08:04] LABS: ALT 55 U/L (4-34); AST 154 U/L (14-36); African American GFR (CKD) 41 (>60 ml/min/1.73 sqM); Albumin 2.5 g/dL (3.5-5.0); Alkaline Phosphatase 213 U/L (38-126); Anion Gap 11 mmol/L; Bilirubin, Conjugated 1.6 mg/dL (0.0-0.3); Bilirubin, Delta 3.5 mg/dL (0.0-0.2); Bilirubin,Unconjugated 1.6 mg/dL (0.0-1.1); Blood Urea Nitrogen 49 mg/dL (7-17); Calcium 8.7 mg/dL (8.4-10.2); Carbon Dioxide 18 mmol/L (22-30); Chloride 109 mmol/L (98-107); Glucose 106 mg/dL (74-99); Magnesium 1.6 mg/dL (1.6-2.3); Non-African American GFR(CKD) 35 (>60 ml/min/1.73 sqM); Potassium 3.3 mmol/L (3.5-5.1); Sodium 138 mmol/L (137-145); Total Bilirubin 6.7 mg/dL (0.2-1.3); Total Protein 4.8 g/dL (6.3-8.2)
--- NOTE | 2024-11-23 09:23 | P.PN ---
Subjective 43-year-old female presenting for evaluation of lower abdominal pain, and diagnosis of drug-resistant urinary tract infection. Patient had urinalysis and urine culture on the and was informed that she had to come to the emergency department for IV antibiotics. Patient has history of liver failure and had recent admission at outside hospital with GI consultation. She is a previous drinker quit approximately 4 months ago. No surgical intervention was performed according to the patient while she was at [facility] and she was subsequ ently discharged. She denies fever. Reports lower abdominal pain and dysuria. Patient denies any upper abdominal pain. Blood work completed in ED reveals a WBC of 21.3, hemoglobin of 11.3 and plate let count of 276, INR 1.3, sodium 142, potassium 3.5, BUNs/creatinine of 99/2.63, lactic acid of 2.5, total bilirubin elevated at 8.5, AST of 129, ALT 61, amylase of 71, lipase 313, EKG reveals sinus rhythm rate of 97, NJ interval 143, QRS duration 84, QTc [address] segment elevation. CT abdomen pelvis showing cholelithiasis, anasarca, no definitive acute process in the lower abdomen. 11/21 6 patient awake and alert, she is pleasant 43 years old female who was sent initially for UTI with resistant microorganism. Also patient was noticed to have abdominal pain and jaundice on admission Patient's was admitted with VRE UTI, she has been evaluated by ID team and started on daptomycin Also patient was noted to have anasarca and significant ascites and leg edema most likely secondary to liver disease. Patient states that she has been seen GI doctors before but not sure if it was in the office or the hospital, she is not sure what kind of liver disease she has. Patient has history of heavy alcohol drinking. Reports it was last drink 6 months ago. On admission bilirubin was high at 8.5 currently 7.6 and AST 129 up to 168 and ALT 61 down to 54. I talked to the patient about transferring her to another facility like [facility] for there is no GI service coverage in this facility. Patient declines. Risk and benefits explained. Patient blood pressure low normal, slightly tachycardic at 103. WBC was 25,000 currently 19.7, hemoglobin 9.4, creatinine trending down 2.6 down to 1.9 with baseline 0.6-0.[address] of the abdomen pelvis without contrast showing anasarca with ascites and bilateral pleural effusion and cholelithiasis Abdominal ultrasound showing marked ascites and mild cholelithiasis without acute cholecystitis 11/22 Patient is awake alert today, she feels tired. Jaundiced She complains from frequent bowel movement about 8/day, also abdominal pain with bowel movements only. However on exam she has right upper quadrant tenderness Her abdomen is much less distended. She is status post paracentesis yesterday with 6.7 L taken out, after the procedure she received 2 units of albumin. Blood pressure this morning 88/53 and labs showing hemoglobin 8.5. Creatinine trending down to 1.7 Liver enzymes and bilirubin slightly less than yesterday, with bilirubin 6.8, AST 144 and ALT 55 Blood culture pending Ascites cytology and culture pending C. difficile is requested and is pending Patient remains on daptomycin. Also she started on small dose of Lasix 20 mg twice daily. And low potassium been replaced Will give her another 2 doses of albumin today with close monitoring 11/23 Patient lying bed looks very tired and lethargic however mentation is at baseline fully awake and oriented She states her diarrhea is improved last night she did not have bowel movement till after 10 PM which was better. She still complains from mild abdominal pain and tenderness in the upper abdomen most likely due to her liver disease. No other new complaints. No chest pain or dyspnea. Leukocytosis at 18.5, hemoglobin 8.9, creatinine stable at 1.7. Liver enzymes are the same. She remains on IV daptomycin Eosinophilia is due to her VRE UTI as per hematology team. Objective - Vital Signs Vital signs: Vital Signs Temp 98.6 F 11/22/24 20:00 Pulse 93 11/23/24 04:30 Resp 16 11/23/24 04:30 BP 83/54 11/23/24 04:30 Pulse Ox 100 11/23/24 04:30 FiO2 Intake & Output 11/22/24 11/23/24 11/23/24 18:59 06:59 18:59 Intake Total 118 110 Output Total 250 200 Balance -132 -200 110 Weight 74.5 kg Intake: Oral 118 110 Output: Urine 250 200 Other: Voiding Method External Catheter External Catheter # Voids 1 # Bowel Movements 2 1 1 - Exam GENERAL: The patient is alert and oriented x3, not in any acute distress. Well developed, well nourished. HEENT: Pupils are round and equally reacting to light. EOMI. No scleral icterus. No conjunctival pallor. Normocephalic, atraumatic. No pharyngeal erythema. No thyromegaly. CARDIOVASCULAR: S1 and S2 present. No murmurs, rubs, or gallops. PULMONARY: Chest is clear to auscultation, no wheezing , no crackles. -ABDOMEN: Soft, nontender, distended, normoactive bowel sounds. No palpable organomegaly. MUSCULOSKELETAL: No joint swelling or deformity. - EXTREMITIES: No cyanosis, clubbing, bilateral pitting pedal edema. NEUROLOGICAL: Gross neurological examination did not reveal any focal deficits. SKIN: No rashes. no petechiae. - Labs CBC & Chem 7: 11/23/24 07:23 11/23/24 07:23 Labs: Abnormal Lab Results - Last 24 Hours (Table) 11/23/24 11/23/24 Range/Units 07:23 07:23 WBC 18.5 H (3.8-10.6) k/uL RBC 2.32 L (3.80-5.40) m/uL Hgb 8.9 L (11.4-16.0) gm/dL Hct 28.2 L (34.0-46.0) % MCV 121.2 H (80.0-100.0) fL MCH 38.5 H (25.0-35.0) pg Neutrophils # 14.5 H (1.3-7.7) k/uL Eosinophils # 1.6 H (0-0.7) k/uL Macrocytosis Marked A Potassium 3.3 L (3.5-5.1) mmol/L Chloride 109 H (98-107) mmol/L Carbon Dioxide 18 L (22-30) mmol/L BUN 49 H (7-17) mg/dL Creatinine 1.73 H (0.52-1.04) mg/dL Glucose 106 H (74-99) mg/dL Total Bilirubin 6.7 H (0.2-1.3) mg/dL Conjugated Bilirubin 1.6 H (0.0-0.3) mg/dL Unconjugated Bilirubin 1.6 H (0.0-1.1) mg/dL Delta Bilirubin 3.5 H (0.0-0.2) mg/dL AST 154 H (14-36) U/L ALT 55 H (4-34) U/L Alkaline Phosphatase 213 H (38-126) U/L Total Protein 4.8 L (6.3-8.2) g/dL Albumin 2.5 L (3.5-5.0) g/dL Microbiology - Last 24 Hours (Table) 11/21/24 15:08 Gram Stain - Preliminary Ascites Fluid Body Fluid Culture - Preliminary 11/18/24 18:21 Blood Culture - Preliminary Blood Assessment and Plan Assessment: VRE UTI Alcoholic liver disease possible cirrhosis. With transaminitis and elevated bilirubin Acute kidney injury, improving Lactic acidemia, improved and lactic acid back to reference range at 1.9 Hypothyroidism Gastroesophageal reflux disease Chronic alcohol use disorder Fluid overload and anasarca most likely secondary to above Plan: PLAN: Continue with daptomycin as per ID team will follow the case closely Follow-up urine and blood culture Start the patient on Lasix for now and may be later add Aldactone Monitor creatinine Follow-up cytology and culture from the ascites fluid on 11/21 Monitor blood pressure. Will add midodrine 5 mg 3 times daily I counseled the patient about transfer her to any other facility for there is no GI coverage in this facility. Patient declines and wants to stay in [facility] for now Labs and medication were reviewed.. Continue same treatment. Continue with symptomatic treatment. Resume home medication. Monitor labs and vitals. DVT and GI prophylaxis. Further recommendations as per clinical course of the patient DVT prophylaxis: Subcutaneous heparin GI Prophylaxis: Pepcid PT/OT: Pending Prognosis is guarded
[2024-11-23] MEDS: POTASSIUM CHLORIDE ER 20 MEQ TAB.ER PO STA (10:10)
[2024-11-23] MEDS: MAGNESIUM SULFATE-D5W PMX 1 GM in DEXTROSE/WATER 1 100ML.BAG IVPB ONE (10:11)
[2024-11-23 14:29] LABS: % Iron Saturation 59.04 (12.00-45.00); Iron 49 UG/DL (50-170); Total Iron Binding Capacity 83 UG/DL (228-460)
--- NOTE | 2024-11-23 14:44 | P.PN ---
Subjective Progress Note Date: 11/22/24 Principal diagnosis: Reason for follow-up is VRE UTI Patient is a 43-year-old female with a past medical history significant for reflux gallstone liver disease patient apparently has been dealing with UTI symptoms of burning of urine frequency some suprapubic discomfort. Failing outpatient oral antibiotic with outpatient culture positive for VRE. On today's evaluation that is 11/22/2024, Patient is afebrile this morning patient denies having any chest pain shortness of breath or cough, the patient is currently on room air, patient denies any abdominal pain no diarrhea no nausea no vomiting, rash to the abdominal area has decreased in intensity. Patient white count is down to 16.4, creatinine is 1.78 abdominal fluid cultures so far pending blood cultures pending Objective - Vital Signs Vital signs: Vital Signs Temp 97.9 F 11/22/24 07:48 Pulse 87 11/22/24 11:00 Resp 16 11/22/24 11:00 BP 85/57 11/22/24 11:00 Pulse Ox 98 11/22/24 11:00 FiO2 Intake & Output 11/21/24 11/22/24 11/22/24 18:59 06:59 18:59 Intake Total 236 1080 118 Output Total 200 250 250 Balance 36 830 -132 Weight 64.41 kg 69.8 kg Intake: Oral 236 1080 118 Output: Urine 200 250 250 Other: Voiding Method External Catheter External Catheter External Catheter # Bowel Movements 2 - Exam GENERAL DESCRIPTION: Middle-age female lying in bed in no distress RESPIRATORY SYSTEM: Unlabored breathing , decreased breath sounds at bases HEART: S1 S2 regular rate and rhythm , ABDOMEN: Soft , no tenderness Patient has developed maculopapular rash mostly to the trunk - Labs CBC & Chem 7: 11/23/24 07:23 11/23/24 07:23 Labs: Abnormal Lab Results - Last 24 Hours (Table) 11/22/24 11/22/24 Range/Units 06:43 06:43 WBC 16.4 H (3.8-10.6) k/uL RBC 2.19 L (3.80-5.40) m/uL Hgb 8.5 L (11.4-16.0) gm/dL Hct 26.1 L (34.0-46.0) % MCV 119.4 H (80.0-100.0) fL MCH 38.8 H (25.0-35.0) pg Neutrophils # 12.7 H (1.3-7.7) k/uL Eosinophils # 1.4 H (0-0.7) k/uL Macrocytosis Marked A Potassium 3.1 L (3.5-5.1) mmol/L Chloride 113 H (98-107) mmol/L Carbon Dioxide 19 L (22-30) mmol/L BUN 57 H (7-17) mg/dL Creatinine 1.78 H (0.52-1.04) mg/dL Glucose 105 H (74-99) mg/dL Total Bilirubin 6.8 H (0.2-1.3) mg/dL Conjugated Bilirubin 1.8 H (0.0-0.3) mg/dL Unconjugated Bilirubin 1.5 H (0.0-1.1) mg/dL Delta Bilirubin 3.5 H (0.0-0.2) mg/dL AST 144 H (14-36) U/L ALT 55 H (4-34) U/L Alkaline Phosphatase 217 H (38-126) U/L Total Protein 4.8 L (6.3-8.2) g/dL Albumin 2.4 L (3.5-5.0) g/dL Microbiology - Last 24 Hours (Table) 11/21/24 15:08 Gram Stain - Preliminary Ascites Fluid 11/18/24 18:21 Blood Culture - Preliminary Blood Assessment and Plan (1) Allergy to sulfa drugs Current Visit: Yes Status: Acute Code(s): Z88.2 - ALLERGY STATUS TO SULFONAMIDES SNOMED Code(s): 17511134 (2) Urinary tract infection Current Visit: Yes Status: Acute Code(s): N39.0 - URINARY TRACT INFECTION, SITE NOT SPECIFIED SNOMED Code(s): 51475962 (3) VRE (vancomycin resistant enterococcus) culture positive Current Visit: Yes Status: Acute Code(s): Z22.39 - CARRIER OF OTHER SPECIFIED BACTERIAL DISEASES SNOMED Code(s): 922959819 (4) Drug rash Current Visit: Yes Status: Acute Code(s): L27.0 - GEN SKIN ERUPTION DUE TO DRUGS AND MEDS TAKEN INTERNALLY SNOMED Code(s): 88505929 Plan: 1patient presented to hospital with urinary burning pressure elevated white count concerning for symptomatic UTI failing outpatient oral antibiotic therapy with urine culture recently done grew VRE 2-patient did have elevated white count more likely due to VRE UTI 3-patient ultrasound did not show any hydronephrosis or dilated CBD 4-patient has developed a rash questionable related to Zyvox which was discontinued patient still have significant rash questionable related to Dilaudid patient need to be discontinued this was discussed with the admitting team yesterday still on follow-up patient is covered with daptomycin Dictation was produced using [employer] dictation software. please excuse any grammatical, word or spelling errors. Time with Patient: Less than 30
--- NOTE | 2024-11-23 14:46 | P.PN ---
Subjective Progress Note Date: 11/23/24 Principal diagnosis: Reason for follow-up is VRE UTI Patient is a 43-year-old female with a past medical history significant for reflux gallstone liver disease patient apparently has been dealing with UTI symptoms of burning of urine frequency some suprapubic discomfort. Failing outpatient oral antibiotic with outpatient culture positive for VRE. On today's evaluation that is 11/23/2024,the patient denies any fever or any chills, patient is breathing comfortably on room air, the patient denies chest pain shortness of breath and no significant cough, patient denies abdominal pain, no nausea vomiting or diarrhea. Patient mention feeling better. Patient white count is up to 18.5 creatinine is 1.73 liver enzymes remains to be elevated Objective - Vital Signs Vital signs: Vital Signs Temp 97.7 F 11/23/24 11:46 Pulse 98 11/23/24 11:46 Resp 14 11/23/24 11:46 BP 89/55 11/23/24 11:46 Pulse Ox 97 11/23/24 11:46 FiO2 Intake & Output 11/22/24 11/23/24 11/23/24 18:59 06:59 18:59 Intake Total 118 110 Output Total 250 200 Balance -132 -200 110 Weight 74.5 kg Intake: Oral 118 110 Output: Urine 250 200 Other: Voiding Method External Catheter External Catheter # Voids 1 # Bowel Movements 2 1 1 - Exam GENERAL DESCRIPTION: Middle-age female lying in bed in no distress RESPIRATORY SYSTEM: Unlabored breathing , decreased breath sounds at bases HEART: S1 S2 regular rate and rhythm , ABDOMEN: Soft , no tenderness Patient has developed maculopapular rash mostly to the trunk - Labs CBC & Chem 7: 11/23/24 07:23 11/23/24 07:23 Labs: Abnormal Lab Results - Last 24 Hours (Table) 11/23/24 11/23/24 Range/Units 07:23 07:23 WBC 18.5 H (3.8-10.6) k/uL RBC 2.32 L (3.80-5.40) m/uL Hgb 8.9 L (11.4-16.0) gm/dL Hct 28.2 L (34.0-46.0) % MCV 121.2 H (80.0-100.0) fL MCH 38.5 H (25.0-35.0) pg Neutrophils # 14.5 H (1.3-7.7) k/uL Eosinophils # 1.6 H (0-0.7) k/uL Macrocytosis Marked A Potassium 3.3 L (3.5-5.1) mmol/L Chloride 109 H (98-107) mmol/L Carbon Dioxide 18 L (22-30) mmol/L BUN 49 H (7-17) mg/dL Creatinine 1.73 H (0.52-1.04) mg/dL Glucose 106 H (74-99) mg/dL Iron 49 L (50-170) UG/DL TIBC 83 L (228-460) UG/DL % Saturation 59.04 H (12.00-45.00) Transferrin 59.4 L (204.0-354.0) mg/dL Ferritin 414.0 H (10.0-291.0) ng/mL Total Bilirubin 6.7 H (0.2-1.3) mg/dL Conjugated Bilirubin 1.6 H (0.0-0.3) mg/dL Unconjugated Bilirubin 1.6 H (0.0-1.1) mg/dL Delta Bilirubin 3.5 H (0.0-0.2) mg/dL AST 154 H (14-36) U/L ALT 55 H (4-34) U/L Alkaline Phosphatase 213 H (38-126) U/L Total Protein 4.8 L (6.3-8.2) g/dL Albumin 2.5 L (3.5-5.0) g/dL Vitamin B12 963.0 H (200.0-944.0) pg/mL Microbiology - Last 24 Hours (Table) 11/21/24 15:08 Gram Stain - Preliminary Ascites Fluid Body Fluid Culture - Preliminary Assessment and Plan (1) Allergy to sulfa drugs Current Visit: Yes Status: Acute Code(s): Z88.2 - ALLERGY STATUS TO SULFONAMIDES SNOMED Code(s): 70190678 (2) Urinary tract infection Current Visit: Yes Status: Acute Code(s): N39.0 - URINARY TRACT INFECTION, SITE NOT SPECIFIED SNOMED Code(s): 07604570 (3) VRE (vancomycin resistant enterococcus) culture positive Current Visit: Yes Status: Acute Code(s): Z22.39 - CARRIER OF OTHER SPECIFIED BACTERIAL DISEASES SNOMED Code(s): 698166025 (4) Drug rash Current Visit: Yes Status: Acute Code(s): L27.0 - GEN SKIN ERUPTION DUE TO DRUGS AND MEDS TAKEN INTERNALLY SNOMED Code(s): 84241277 Plan: 1patient presented to hospital with urinary burning pressure elevated white count concerning for symptomatic UTI failing outpatient oral antibiotic therapy with urine culture recently done grew VRE 2-patient did have elevated white count more likely due to VRE UTI 3-patient ultrasound did not show any hydronephrosis or dilated CBD 4-patient has received adequate eval for underlying UTI, the patient still have elevated white count questionable related to the drug rash consider discontinuation of the possible offending drug which could be Dilaudid or the Lasix but will leave that to the admitting team we will check inflammatory markers with a.m. lab Dictation was produced using [employer] dictation software. please excuse any grammatical, word or spelling errors. Time with Patient: Less than 30
--- NOTE | 2024-11-24 10:42 | P.PN ---
Subjective 43-year-old female presenting for evaluation of lower abdominal pain, and diagnosis of drug-resistant urinary tract infection. Patient had urinalysis and urine culture on the and was informed that she had to come to the emergency department for IV antibiotics. Patient has history of liver failure and had recent admission at outside hospital with GI consultation. She is a previous drinker quit approximately 4 months ago. No surgical intervention was performed according to the patient while she was at [facility] and she was subsequ ently discharged. She denies fever. Reports lower abdominal pain and dysuria. Patient denies any upper abdominal pain. Blood work completed in ED reveals a WBC of 21.3, hemoglobin of 11.3 and plate let count of 276, INR 1.3, sodium 142, potassium 3.5, BUNs/creatinine of 99/2.63, lactic acid of 2.5, total bilirubin elevated at 8.5, AST of 129, ALT 61, amylase of 71, lipase 313, EKG reveals sinus rhythm rate of 97, GA interval 143, QRS duration 84, QTc [address] segment elevation. CT abdomen pelvis showing cholelithiasis, anasarca, no definitive acute process in the lower abdomen. 11/21 6 patient awake and alert, she is pleasant 43 years old female who was sent initially for UTI with resistant microorganism. Also patient was noticed to have abdominal pain and jaundice on admission Patient's was admitted with VRE UTI, she has been evaluated by ID team and started on daptomycin Also patient was noted to have anasarca and significant ascites and leg edema most likely secondary to liver disease. Patient states that she has been seen GI doctors before but not sure if it was in the office or the hospital, she is not sure what kind of liver disease she has. Patient has history of heavy alcohol drinking. Reports it was last drink 6 months ago. On admission bilirubin was high at 8.5 currently 7.6 and AST 129 up to 168 and ALT 61 down to 54. I talked to the patient about transferring her to another facility like [facility] for there is no GI service coverage in this facility. Patient declines. Risk and benefits explained. Patient blood pressure low normal, slightly tachycardic at 103. WBC was 25,000 currently 19.7, hemoglobin 9.4, creatinine trending down 2.6 down to 1.9 with baseline 0.6-0.[address] of the abdomen pelvis without contrast showing anasarca with ascites and bilateral pleural effusion and cholelithiasis Abdominal ultrasound showing marked ascites and mild cholelithiasis without acute cholecystitis 11/22 Patient is awake alert today, she feels tired. Jaundiced She complains from frequent bowel movement about 8/day, also abdominal pain with bowel movements only. However on exam she has right upper quadrant tenderness Her abdomen is much less distended. She is status post paracentesis yesterday with 6.7 L taken out, after the procedure she received 2 units of albumin. Blood pressure this morning 88/53 and labs showing hemoglobin 8.5. Creatinine trending down to 1.7 Liver enzymes and bilirubin slightly less than yesterday, with bilirubin 6.8, AST 144 and ALT 55 Blood culture pending Ascites cytology and culture pending C. difficile is requested and is pending Patient remains on daptomycin. Also she started on small dose of Lasix 20 mg twice daily. And low potassium been replaced Will give her another 2 doses of albumin today with close monitoring 11/23 Patient lying bed looks very tired and lethargic however mentation is at baseline fully awake and oriented She states her diarrhea is improved last night she did not have bowel movement till after 10 PM which was better. She still complains from mild abdominal pain and tenderness in the upper abdomen most likely due to her liver disease. No other new complaints. No chest pain or dyspnea. Leukocytosis at 18.5, hemoglobin 8.9, creatinine stable at 1.7. Liver enzymes are the same. She remains on IV daptomycin Eosinophilia is due to her VRE UTI as per hematology team. 11/24 Patient states her abdominal pain is better but not completely resolved, curre ntly rated as 1/10, no nausea vomiting. She still picking up her appetite She has 1 bowel movement this morning she does not describe it as diarrhea but it is loose. Patient she is feeling dizzy whenever she sits up or stands up for about 2 minutes but then goes away, yesterday worked with her and today with the physical therapist through the hallway and she did well. She is already on Lasix 20 mg twice daily and she making good urine output. Blood pressure still low normal which is expected for her, she is currently kept on midodrine 5 mg Will add small dose of Aldactone 12.5 mg with close monitoring Objective - Vital Signs Vital signs: Vital Signs Temp 98.2 F 11/24/24 09:25 Pulse 102 H 11/24/24 09:25 Resp 14 11/24/24 09:25 BP 91/53 11/24/24 09:25 Pulse Ox 96 11/24/24 09:25 FiO2 Intake & Output 11/23/24 11/24/24 11/24/24 18:59 06:59 18:59 Intake Total 110 10 450 Output Total 750 20 Balance 110 -740 430 Weight 74 kg Intake: IV 10 Invasive Line 1 10 Oral 110 450 Output: Urine 750 20 Other: Voiding Method External Catheter External Catheter # Voids 1 # Bowel Movements 1 1 1 - Exam GENERAL: The patient is alert and oriented x3, not in any acute distress. Well developed, well nourished. HEENT: Pupils are round and equally reacting to light. EOMI. No scleral icterus. No conjunctival pallor. Normocephalic, atraumatic. No pharyngeal erythema. No thyromegaly. CARDIOVASCULAR: S1 and S2 present. No murmurs, rubs, or gallops. PULMONARY: Chest is clear to auscultation, no wheezing , no crackles. -ABDOMEN: Soft, nontender, distended, normoactive bowel sounds. No palpable organomegaly. MUSCULOSKELETAL: No joint swelling or deformity. - EXTREMITIES: No cyanosis, clubbing, bilateral pitting pedal edema. NEUROLOGICAL: Gross neurological examination did not reveal any focal deficits. SKIN: No rashes. no petechiae. - Labs CBC & Chem 7: 11/23/24 07:23 11/23/24 07:23 Labs: Abnormal Lab Results - Last 24 Hours (Table) 11/23/24 11/24/24 Range/Units 07:23 06:30 Iron 49 L (50-170) UG/DL TIBC 83 L (228-460) UG/DL % Saturation 59.04 H (12.00-45.00) Transferrin 59.4 L (204.0-354.0) mg/dL Ferritin 414.0 H (10.0-291.0) ng/mL C-Reactive Protein 7.0 H (<1.0) mg/dL Vitamin B12 963.0 H (200.0-944.0) pg/mL Microbiology - Last 24 Hours (Table) 11/18/24 18:21 Blood Culture - Final Blood 11/21/24 15:08 Anaerobic Culture - Preliminary Ascites Fluid 11/21/24 15:08 Gram Stain - Preliminary Ascites Fluid Body Fluid Culture - Preliminary Assessment and Plan Assessment: VRE UTI postural hypotension Alcoholic liver disease possible cirrhosis. With transaminitis and elevated bilirubin Acute kidney injury, improving Lactic acidemia, improved and lactic acid back to reference range at 1.9 Hypothyroidism Gastroesophageal reflux disease Chronic alcohol use disorder Fluid overload and anasarca most likely secondary to above Plan: PLAN: Continue with daptomycin as per ID team will follow the case closely Follow-up urine and blood culture Start the patient on Lasix for now and add small dose of Aldactone Monitor creatinine Follow-up cytology and culture from the ascites fluid on 11/21 Monitor blood pressure. Will add midodrine 5 mg 3 times daily I counseled the patient about transfer her to any other facility for there is no GI coverage in this facility. Patient declines and wants to stay in [facility] for now Labs and medication were reviewed.. Continue same treatment. Continue with symptomatic treatment. Resume home medication. Monitor labs and vitals. DVT and GI prophylaxis. Further recommendations as per clinical course of the patient DVT prophylaxis: Subcutaneous heparin GI Prophylaxis: Pepcid PT/OT: Pending Prognosis is guarded
[2024-11-24 10:51] LABS: Appearance,Urine Cloudy (Clear); Bacteria,Urine Rare /hpf; Bilirubin,Urine 1+ (Negative); Blood,Urine Negative (Negative); Budding Yeast,Urine Few /hpf; Color,Urine Yellow; Glucose,Urine (UA) Negative (Negative); Ketones,Urine Negative (Negative); Leukocyte Esterase,Urine Moderate (Negative); Mucus,Urine Rare /hpf; Nitrite,Urine Negative (Negative); Protein,Urine Trace (Negative); RBC,Urine 4 /hpf (0-5); Specific Gravity,Urine 1.014 (1.001-1.035); Squamous Epithelial Cell,Urine 3 /hpf (0-4); Urobilinogen,Urine <2.0 mg/dL (<2.0); WBC,Urine 23 /hpf (0-5)
[2024-11-24] MEDS: SPIRONOLACTONE 25 MG TAB PO SCH (11:48)
--- NOTE | 2024-11-24 14:53 | P.PN ---
Subjective Progress Note Date: 11/24/24 Principal diagnosis: Reason for follow-up is VRE UTI Patient is a 43-year-old female with a past medical history significant for reflux gallstone liver disease patient apparently has been dealing with UTI symptoms of burning of urine frequency some suprapubic discomfort. Failing outpatient oral antibiotic with outpatient culture positive for VRE. On today's evaluation that is 11/24/2024,the patient remains to be afebrile, patient is on room air not requiring supplemental oxygen and denies any shortness of breath no chest pain or cough.Patient denies having any nausea or vomiting, no abdominal pain and no diarrhea has been reported. Patient did not have any CBC done today repeat UA is mildly positive cultures are pending Objective - Vital Signs Vital signs: Vital Signs Temp 97.9 F 11/24/24 11:45 Pulse 99 11/24/24 11:45 Resp 14 11/24/24 11:45 BP 97/62 11/24/24 11:45 Pulse Ox 99 11/24/24 11:45 FiO2 Intake & Output 11/23/24 11/24/24 11/24/24 18:59 06:59 18:59 Intake Total 110 10 450 Output Total 750 20 Balance 110 -740 430 Weight 74 kg Intake: IV 10 Invasive Line 1 10 Oral 110 450 Output: Urine 750 20 Other: Voiding Method External Catheter External Catheter # Voids 1 # Bowel Movements 1 1 1 - Exam GENERAL DESCRIPTION: Middle-age female lying in bed in no distress RESPIRATORY SYSTEM: Unlabored breathing , decreased breath sounds at bases HEART: S1 S2 regular rate and rhythm , ABDOMEN: Soft , no tenderness Patient has developed maculopapular rash mostly to the trunk - Labs CBC & Chem 7: 11/23/24 07:23 11/23/24 07:23 Labs: Abnormal Lab Results - Last 24 Hours (Table) 11/24/24 11/24/24 Range/Units 06:30 10:30 C-Reactive Protein 7.0 H (<1.0) mg/dL Urine Appearance Cloudy H (Clear) Urine Protein Trace H (Negative) Urine Bilirubin 1+ H (Negative) Ur Leukocyte Esterase Moderate H (Negative) Urine WBC 23 H (0-5) /hpf Urine Bacteria Rare H (None) /hpf Urine Mucus Rare H (None) /hpf Urine Yeast (Budding) Few H (None) /hpf Microbiology - Last 24 Hours (Table) 11/18/24 18:21 Blood Culture - Final Blood 11/21/24 15:08 Anaerobic Culture - Preliminary Ascites Fluid 11/21/24 15:08 Gram Stain - Preliminary Ascites Fluid Body Fluid Culture - Preliminary Assessment and Plan (1) Allergy to sulfa drugs Current Visit: Yes Status: Acute Code(s): Z88.2 - ALLERGY STATUS TO SULFONAMIDES SNOMED Code(s): 13123279 (2) Urinary tract infection Current Visit: Yes Status: Acute Code(s): N39.0 - URINARY TRACT INFECTION, SITE NOT SPECIFIED SNOMED Code(s): 37297522 (3) VRE (vancomycin resistant enterococcus) culture positive Current Visit: Yes Status: Acute Code(s): Z22.39 - CARRIER OF OTHER SPECIFIED BACTERIAL DISEASES SNOMED Code(s): 445634314 (4) Drug rash Current Visit: Yes Status: Acute Code(s): L27.0 - GEN SKIN ERUPTION DUE TO DRUGS AND MEDS TAKEN INTERNALLY SNOMED Code(s): 70213307 Plan: 1patient presented to hospital with urinary burning pressure elevated white count concerning for symptomatic UTI failing outpatient oral antibiotic therapy with urine culture recently done grew VRE 2-patient did have elevated white count more likely due to VRE UTI 3-patient ultrasound did not show any hydronephrosis or dilated CBD 4-patient repeat UA still positive we will wait for the culture if negative will recommend to discontinue daptomycin Dictation was produced using [employer] dictation software. please excuse any gram matical, word or spelling errors. Time with Patient: Less than 30
[2024-11-24] MEDS ORDERED: Potassium Replacement Protocol 1 EACH MISC MISCELLANE PRN (21:05)
[2024-11-24] MEDS: POTASSIUM CHLORIDE ER 20 MEQ TAB.ER PO SCH (22:13)
[2024-11-25 03:12] LABS: Potassium 3.8 mmol/L (3.5-5.1)
[2024-11-25] MEDS: FAMOTIDINE 20 MG TAB PO SCH (08:51)
--- NOTE | 2024-11-25 09:19 | P.PN ---
Subjective 43-year-old female presenting for evaluation of lower abdominal pain, and diagnosis of drug-resistant urinary tract infection. Patient had urinalysis and urine culture on the and was informed that she had to come to the emergency department for IV antibiotics. Patient has history of liver failure and had recent admission at outside hospital with GI consultation. She is a previous drinker quit approximately 4 months ago. No surgical intervention was performed according to the patient while she was at [facility] and she was subsequ ently discharged. She denies fever. Reports lower abdominal pain and dysuria. Patient denies any upper abdominal pain. Blood work completed in ED reveals a WBC of 21.3, hemoglobin of 11.3 and plate let count of 276, INR 1.3, sodium 142, potassium 3.5, BUNs/creatinine of 99/2.63, lactic acid of 2.5, total bilirubin elevated at 8.5, AST of 129, ALT 61, amylase of 71, lipase 313, EKG reveals sinus rhythm rate of 97, OK interval 143, QRS duration 84, QTc [address] segment elevation. CT abdomen pelvis showing cholelithiasis, anasarca, no definitive acute process in the lower abdomen. 11/21 6 patient awake and alert, she is pleasant 43 years old female who was sent initially for UTI with resistant microorganism. Also patient was noticed to have abdominal pain and jaundice on admission Patient's was admitted with VRE UTI, she has been evaluated by ID team and started on daptomycin Also patient was noted to have anasarca and significant ascites and leg edema most likely secondary to liver disease. Patient states that she has been seen GI doctors before but not sure if it was in the office or the hospital, she is not sure what kind of liver disease she has. Patient has history of heavy alcohol drinking. Reports it was last drink 6 months ago. On admission bilirubin was high at 8.5 currently 7.6 and AST 129 up to 168 and ALT 61 down to 54. I talked to the patient about transferring her to another facility like [facility] for there is no GI service coverage in this facility. Patient declines. Risk and benefits explained. Patient blood pressure low normal, slightly tachycardic at 103. WBC was 25,000 currently 19.7, hemoglobin 9.4, creatinine trending down 2.6 down to 1.9 with baseline 0.6-0.[address] of the abdomen pelvis without contrast showing anasarca with ascites and bilateral pleural effusion and cholelithiasis Abdominal ultrasound showing marked ascites and mild cholelithiasis without acute cholecystitis 11/22 Patient is awake alert today, she feels tired. Jaundiced She complains from frequent bowel movement about 8/day, also abdominal pain with bowel movements only. However on exam she has right upper quadrant tenderness Her abdomen is much less distended. She is status post paracentesis yesterday with 6.7 L taken out, after the procedure she received 2 units of albumin. Blood pressure this morning 88/53 and labs showing hemoglobin 8.5. Creatinine trending down to 1.7 Liver enzymes and bilirubin slightly less than yesterday, with bilirubin 6.8, AST 144 and ALT 55 Blood culture pending Ascites cytology and culture pending C. difficile is requested and is pending Patient remains on daptomycin. Also she started on small dose of Lasix 20 mg twice daily. And low potassium been replaced Will give her another 2 doses of albumin today with close monitoring 11/23 Patient lying bed looks very tired and lethargic however mentation is at baseline fully awake and oriented She states her diarrhea is improved last night she did not have bowel movement till after 10 PM which was better. She still complains from mild abdominal pain and tenderness in the upper abdomen most likely due to her liver disease. No other new complaints. No chest pain or dyspnea. Leukocytosis at 18.5, hemoglobin 8.9, creatinine stable at 1.7. Liver enzymes are the same. She remains on IV daptomycin Eosinophilia is due to her VRE UTI as per hematology team. 11/24 Patient states her abdominal pain is better but not completely resolved, curre ntly rated as 1/10, no nausea vomiting. She still picking up her appetite She has 1 bowel movement this morning she does not describe it as diarrhea but it is loose. Patient she is feeling dizzy whenever she sits up or stands up for about 2 minutes but then goes away, yesterday worked with her and today with the physical therapist through the hallway and she did well. She is already on Lasix 20 mg twice daily and she making good urine output. Blood pressure still low normal which is expected for her, she is currently kept on midodrine 5 mg Will add small dose of Aldactone 12.5 mg with close monitoring 11/25 pt is comfortable in bed, still very weak, no abdominal pain , but she feels gaseous in her abdomen. No overt abdominal pain. She had about 3 bowel movement which is acceptable for her. They are kind of loose but not watery. Yesterday the could not sent for C. difficile because it was more formed No chest pain or dyspnea. Patient still complaining from dysuria. Blood pressure is borderline Increase her Aldactone today to 25 mg daily. Continue with the current dapt omycin. Labs from today are pending Objective - Vital Signs Vital signs: Vital Signs Temp 98.6 F 11/25/24 04:00 Pulse 100 11/25/24 08:44 Resp 14 11/25/24 08:44 BP 86/47 11/25/24 08:44 Pulse Ox 97 11/25/24 08:44 FiO2 Intake & Output 11/24/24 11/25/24 11/25/24 18:59 06:59 18:59 Intake Total 1490 465 Output Total 20 450 Balance 1470 -450 465 Weight 74 kg Intake: Oral 1490 465 Output: Urine 20 450 Other: Voiding Method External Catheter External Catheter # Voids 2 # Bowel Movements 1 1 - Exam GENERAL: The patient is alert and oriented x3, not in any acute distress. Well developed, well nourished. HEENT: Pupils are round and equally reacting to light. EOMI. No scleral icterus. No conjunctival pallor. Normocephalic, atraumatic. No pharyngeal erythema. No thyromegaly. CARDIOVASCULAR: S1 and S2 present. No murmurs, rubs, or gallops. PULMONARY: Chest is clear to auscultation, no wheezing , no crackles. -ABDOMEN: Soft, nontender, distended, normoactive bowel sounds. No palpable organomegaly. MUSCULOSKELETAL: No joint swelling or deformity. - EXTREMITIES: No cyanosis, clubbing, bilateral pitting pedal edema. NEUROLOGICAL: Gross neurological examination did not reveal any focal deficits. SKIN: No rashes. no petechiae. - Labs CBC & Chem 7: 11/23/24 07:23 11/25/24 02:14 Labs: Abnormal Lab Results - Last 24 Hours (Table) 11/24/24 Range/Units 10:30 Urine Appearance Cloudy H (Clear) Urine Protein Trace H (Negative) Urine Bilirubin 1+ H (Negative) Ur Leukocyte Esterase Moderate H (Negative) Urine WBC 23 H (0-5) /hpf Urine Bacteria Rare H (None) /hpf Urine Mucus Rare H (None) /hpf Urine Yeast (Budding) Few H (None) /hpf Microbiology - Last 24 Hours (Table) 11/21/24 15:08 Gram Stain - Preliminary Ascites Fluid Body Fluid Culture - Preliminary 11/18/24 18:21 Blood Culture - Final Blood Assessment and Plan Assessment: VRE UTI postural hypotension Alcoholic liver disease possible cirrhosis. With transaminitis and elevated bilirubin Acute kidney injury, improving Lactic acidemia, improved and lactic acid back to reference range at 1.9 Hypothyroidism Gastroesophageal reflux disease Chronic alcohol use disorder Fluid overload and anasarca most likely secondary to above Plan: PLAN: Continue with daptomycin as per ID team will follow the case closely Follow-up urine and blood culture Start the patient on Lasix for now and add small dose of Aldactone Monitor creatinine Follow-up cytology and culture from the ascites fluid on 11/21 Monitor blood pressure. Will add midodrine 5 mg 3 times daily I counseled the patient about transfer her to any other facility for there is no GI coverage in this facility. Patient declines and wants to stay in [facility] for now Labs and medication were reviewed.. Continue same treatment. Continue with symptomatic treatment. Resume home medication. Monitor labs and vitals. DVT and GI prophylaxis. Further recommendations as per clinical course of the patient DVT prophylaxis: Subcutaneous heparin GI Prophylaxis: Pepcid PT/OT: Pending Prognosis is guarded
[2024-11-25 09:30] LABS: Basophils % (A) 0 %; Eosinophils # (A) 1.9 k/uL (0-0.7); Eosinophils % (A) 10 %; HCT 29.1 % (34.0-46.0); HGB 9.1 gm/dL (11.4-16.0); Hypochromasia Marked; Lymphocytes # (A) 2.2 k/uL (1.0-4.8); Lymphocytes % (A) 11 %; MCHC 31.2 g/dL (31.0-37.0); MCV 121.8 fL (80.0-100.0); Macrocytosis Marked; Mean Platelet Volume 10.6; Monocytes # (A) 1.1 k/uL (0-1.0); Monocytes % (A) 6 %; Neutrophils # (A) 14.3 k/uL (1.3-7.7); Neutrophils % (A) 72 %; Platelet Count 195 k/uL (150-450); RBC 2.39 m/uL (3.80-5.40); RDW 13.5 % (11.5-15.5); WBC 19.9 k/uL (3.8-10.6)
[2024-11-25 09:44] LABS: ALT 50 U/L (4-34); AST 96 U/L (14-36); African American GFR (CKD) 42 (>60 ml/min/1.73 sqM); Albumin 2.4 g/dL (3.5-5.0); Alkaline Phosphatase 257 U/L (38-126); Anion Gap 7 mmol/L; Bilirubin, Conjugated 0.9 mg/dL (0.0-0.3); Bilirubin, Delta 2.9 mg/dL (0.0-0.2); Bilirubin,Unconjugated 1.1 mg/dL (0.0-1.1); Blood Urea Nitrogen 40 mg/dL (7-17); Calcium 8.7 mg/dL (8.4-10.2); Carbon Dioxide 16 mmol/L (22-30); Chloride 114 mmol/L (98-107); Glucose 113 mg/dL (74-99); Non-African American GFR(CKD) 37 (>60 ml/min/1.73 sqM); Sodium 137 mmol/L (137-145); Total Bilirubin 4.9 mg/dL (0.2-1.3); Total Protein 4.8 g/dL (6.3-8.2)
[2024-11-25] MEDS: SIMETHICONE 80 MG CHEWABLE PO PRN (10:27)
[2024-11-25] MEDS: FLUCONAZOLE 100 MG TAB PO SCH (12:40)
--- NOTE | 2024-11-25 15:06 | P.PN ---
Subjective Progress Note Date: 11/25/24 Principal diagnosis: Reason for follow-up is VRE UTI Patient is a 43-year-old female with a past medical history significant for reflux gallstone liver disease patient apparently has been dealing with UTI symptoms of burning of urine frequency some suprapubic discomfort. Failing outpatient oral antibiotic with outpatient culture positive for VRE. On today's evaluation that is 11/25/2024, the patient continues to be afebrile, the patient is on room air and breathing comfortably, the Pt denies having any chest pain or cough, the patient denies having any abdominal pain no vomiting did have diarrhea denies any blood or mucus in the stool. Patient white count is 19.9 creat is 1.6 7 repeat cultures currently pending Objective - Vital Signs Vital signs: Vital Signs Temp 98.6 F 11/25/24 04:00 Pulse 100 11/25/24 08:44 Resp 14 11/25/24 08:44 BP 86/47 11/25/24 08:44 Pulse Ox 97 11/25/24 08:44 FiO2 Intake & Output 11/24/24 11/25/24 11/25/24 18:59 06:59 18:59 Intake Total 1490 465 Output Total 20 450 Balance 1470 -450 465 Weight 74 kg Intake: Oral 1490 465 Output: Urine 20 450 Other: Voiding Method External Catheter External Catheter # Voids 2 # Bowel Movements 1 1 - Exam GENERAL DESCRIPTION: Middle-age female lying in bed in no distress RESPIRATORY SYSTEM: Unlabored breathing , decreased breath sounds at bases HEART: S1 S2 regular rate and rhythm , ABDOMEN: Soft , no tenderness Patient has developed maculopapular rash mostly to the trunk - Labs CBC & Chem 7: 11/25/24 02:14 11/25/24 02:14 Labs: Abnormal Lab Results - Last 24 Hours (Table) 11/25/24 11/25/24 Range/Units 02:14 02:14 WBC 19.9 H (3.8-10.6) k/uL RBC 2.39 L (3.80-5.40) m/uL Hgb 9.1 L (11.4-16.0) gm/dL Hct 29.1 L (34.0-46.0) % MCV 121.8 H (80.0-100.0) fL MCH 38.0 H (25.0-35.0) pg Neutrophils # 14.3 H (1.3-7.7) k/uL Monocytes # 1.1 H (0-1.0) k/uL Eosinophils # 1.9 H (0-0.7) k/uL Macrocytosis Marked A Chloride 114 H (98-107) mmol/L Carbon Dioxide 16 L (22-30) mmol/L BUN 40 H (7-17) mg/dL Creatinine 1.67 H (0.52-1.04) mg/dL Glucose 113 H (74-99) mg/dL Total Bilirubin 4.9 H (0.2-1.3) mg/dL Conjugated Bilirubin 0.9 H (0.0-0.3) mg/dL Delta Bilirubin 2.9 H (0.0-0.2) mg/dL AST 96 H (14-36) U/L ALT 50 H (4-34) U/L Alkaline Phosphatase 257 H (38-126) U/L Total Protein 4.8 L (6.3-8.2) g/dL Albumin 2.4 L (3.5-5.0) g/dL Microbiology - Last 24 Hours (Table) 11/21/24 15:08 Gram Stain - Preliminary Ascites Fluid Body Fluid Culture - Preliminary Assessment and Plan (1) Allergy to sulfa drugs Current Visit: Yes Status: Acute Code(s): Z88.2 - ALLERGY STATUS TO SULFONAMIDES SNOMED Code(s): 66149403 (2) Urinary tract infection Current Visit: Yes Status: Acute Code(s): N39.0 - URINARY TRACT INFECTION, SITE NOT SPECIFIED SNOMED Code(s): 03297950 (3) VRE (vancomycin resistant enterococcus) culture positive Current Visit: Yes Status: Acute Code(s): Z22.39 - CARRIER OF OTHER SPECIFIED BACTERIAL DISEASES SNOMED Code(s): 511264166 (4) Drug rash Current Visit: Yes Status: Acute Code(s): L27.0 - GEN SKIN ERUPTION DUE TO DRUGS AND MEDS TAKEN INTERNALLY SNOMED Code(s): 92431831 Plan: 1patient presented to hospital with urinary burning pressure elevated white count concerning for symptomatic UTI failing outpatient oral antibiotic therapy with urine culture recently done grew VRE 2-patient did have elevated white count more likely due to VRE UTI 3-patient ultrasound did not show any hydronephrosis or dilated CBD 4-patient repeat UA still positive currently waiting for culture patient is on daptomycin 5patient also developed diarrhea we will check a stool for C. difficile and treat if positive Dictation was produced using [employer] dictation software. please excuse any grammatical, word or spelling errors. Time with Patient: Less than 30
[2024-11-26] MEDS: SPIRONOLACTONE 25 MG TAB PO SCH (09:31)
[2024-11-26 10:49] LABS: Basophils % (A) 0 %; Eosinophils # (A) 1.5 k/uL (0-0.7); Eosinophils % (A) 10 %; HCT 28.5 % (34.0-46.0); Hypochromasia Moderate; Lymphocytes # (A) 1.7 k/uL (1.0-4.8); Lymphocytes % (A) 11 %; MCH 38.2 pg (25.0-35.0); MCHC 31.7 g/dL (31.0-37.0); MCV 120.5 fL (80.0-100.0); Macrocytosis Marked; Mean Platelet Volume 9.3; Monocytes # (A) 0.7 k/uL (0-1.0); Monocytes % (A) 4 %; Neutrophils # (A) 11.9 k/uL (1.3-7.7); Neutrophils % (A) 74 %; Platelet Count 197 k/uL (150-450); RBC 2.37 m/uL (3.80-5.40); RDW 13.9 % (11.5-15.5)
[2024-11-26 11:15] LABS: ALT 43 U/L (4-34); AST 83 U/L (14-36); African American GFR (CKD) 44 (>60 ml/min/1.73 sqM); Albumin 2.3 g/dL (3.5-5.0); Alkaline Phosphatase 217 U/L (38-126); Anion Gap 10 mmol/L; Bilirubin, Conjugated 0.8 mg/dL (0.0-0.3); Bilirubin, Delta 3.2 mg/dL (0.0-0.2); Bilirubin,Unconjugated 1.2 mg/dL (0.0-1.1); Blood Urea Nitrogen 34 mg/dL (7-17); Calcium 8.2 mg/dL (8.4-10.2); Carbon Dioxide 19 mmol/L (22-30); Chloride 107 mmol/L (98-107); Glucose 168 mg/dL (74-99); Non-African American GFR(CKD) 38 (>60 ml/min/1.73 sqM); Potassium 3.5 mmol/L (3.5-5.1); Sodium 136 mmol/L (137-145); Total Bilirubin 5.2 mg/dL (0.2-1.3); Total Protein 4.7 g/dL (6.3-8.2)
--- NOTE | 2024-11-26 14:34 | P.NPCON ---
History of Present Illness - Reason for Consult Consult date: 11/26/24 - Chief Complaint UTI - History of Present Illness 43-year-old female presenting for evaluation of lower abdominal pain, and diagnosis of drug-resistant urinary tract infection. Patient had urinalysis and urine culture on the and was informed that she had to come to the emergency department for IV antibiotics. Patient has history of liver failure and had recent admission at outside hospital with GI consultation. She is a previous drinker quit approximately 4 months ago.Denies any history of kidney disease. Overall feeling better but still weak. Vital signs are stable. General: No acute distress. HEENT: Head exam is unremarkable. LUNGS: No audible rhonchi or wheezes. HEART: Rate and Rhythm are regular. ABDOMEN: Nontender. EXTREMITITES: + edema. Review of Systems Constitutional: Reports as per HPI Past Medical History Past Medical History: GERD/Reflux, Liver Disease Additional Past Medical History / Comment(s): gallstones; hernia History of Any Multi-Drug Resistant Organisms: VRE Date of last positivie culture/infection: 11/10/24 MDRO Source:: urine Past Surgical History: Appendectomy Past Anesthesia/Blood Transfusion Reactions: Motion Sickness Past Psychological History: No Psychological Hx Reported Smoking Status: Never smoker Past Alcohol Use History: None Reported, Heavy Past Drug Use History: None Reported - Past Family History Mother Family Medical History: Cancer Additional Family Medical History / Comment(s): Passed from Breast CA Father History Unknown: Yes Additional Family Medical History / Comment(s): Dose not know bio dad Medications and Allergies Home Medications Medication Instructions Recorded Confirmed Type Levothyroxine Sodium [Synthroid] 25 mcg PO DAILY 10/25/24 11/19/24 History Folic Acid 1 mg PO DAILY 11/19/24 11/19/24 History Midodrine [ProAmatine] 10 mg PO TID PRN 11/19/24 11/19/24 History Multivitamins, Thera [Multivitamin 1 tab PO DAILY 11/19/24 11/19/24 History (formulary)] Ondansetron [Zofran] 4 mg PO Q8HR PRN 11/19/24 11/19/24 History Pantoprazole [Protonix] 40 mg PO DAILY 11/19/24 11/19/24 History Thiamine [Vitamin B-1] 100 mg PO DAILY 11/19/24 11/19/24 History traMADol HCL 50 mg PO Q6H PRN 11/19/24 11/19/24 History Allergies Allergy/AdvReac Type Severity Reaction Status Date / Time sulfamethoxazole Allergy Severe Verified 11/19/24 08:56 [From Bactrim] migraines, neck pain, stomach pain trimethoprim [From Bactrim] Allergy Severe Verified 11/19/24 08:56 migraines, neck pain, stomach pain Physical Exam Vitals: Vital Signs Temp Pulse Resp BP Pulse Ox 11/26/24 08:00 98.5 F 98 16 107/74 100 11/26/24 06:18 90/60 11/26/24 03:16 98.4 F 100 14 97/66 98 11/25/24 23:25 98.1 F 104 H 16 93/63 98 11/25/24 20:00 18 11/25/24 19:34 98 F 104 H 18 101/67 99 11/25/24 16:00 98.1 F 104 H 14 101/68 100 11/25/24 12:37 98.6 F 97 16 93/62 100 Intake and Output 11/25/24 11/26/24 11/26/24 22:59 06:59 14:59 Intake Total 240 Output Total 300 Balance 240 -300 Intake: Oral 240 Output: Urine 300 Other: Voiding Method External Catheter External Catheter External Catheter Weight 72 kg Results - Lab Results Most recent lab results Calcium 8.2 mg/dL (8.4-10.2) L 11/26/24 09:50 Magnesium 1.6 mg/dL (1.6-2.3) 11/23/24 07:23 11/26/24 09:50 11/26/24 09:50 Assessment and Plan Assessment: 1. Non-oliguric NOAH due to ATN. Multifactorial from hypotension, sepsis. Baseline creatinine 0.7. Creatinine 5.2 11/10, presented here 2.6, improved and stable 1.6 today. UA concerning for UTI. Renal US no hydronephrosis. 2. VRE UTI 3. Alcoholic Cirrhosis 4. Hypokalemia. Improved with replacement 5. Metabolic Acidosis likely related to NOAH and cirrhosis. Plan: Continue supportive care, renal function appears stable. ABX per ID, on daptomycin, check CPK level Restarted on Aldactone and PO Lasix for cirrhosis Monitor strict I/O's Doubt hepatorenal syndrome Continue midodrine for BP support
--- NOTE | 2024-11-26 18:07 | P.PN ---
Subjective Progress Note Date: 11/26/24 Interval History: 43-year-old female presenting for evaluation of lower abdominal pain, and diagnosis of drug-resistant urinary tract infection. Patient had urinalysis and urine culture on the and was informed that she had to come to the emergency department for IV antibiotics. Patient has history of liver failure and had recent admission at outside hospital with GI consultation. She is a previous drinker quit approximately 4 months ago. No surgical intervention was performed according to the patient while she was at [facility] and she was subsequently discharged. She denies fever. Reports lower abdominal pain and dysuria. Patient denies any upper abdominal pain. Blood work completed in ED reveals a WBC of 21.3, hemoglobin of 11.3 and platelet count of 276, INR 1.3, sodium 142, potassium 3.5, BUNs/creatinine of 99/2.63, lactic acid of 2.5, total bilirubin elevated at 8.5, AST of 129, ALT 61, amylase of 71, lipase 313, EKG reveals sinus rhythm rate of 97, NE interval 143, QRS duration 84, QTc [address] segment elevation. CT abdomen pelvis showing cholelithiasis, anasarca, no definitive acute process in the lower abdomen. 11/21 6 patient awake and alert, she is pleasant 43 years old female who was sent initially for UTI with resistant microorganism. Also patient was noticed to have abdominal pain and jaundice on admission Patient's was admitted with VRE UTI, she has been evaluated by ID team and started on daptomycin Also patient was noted to have anasarca and significant ascites and leg edema most likely secondary to liver disease. Patient states that she has been seen GI doctors before but not sure if it was in the office or the hospital, she is not sure what kind of liver disease she has. Patient has history of heavy alcohol drinking. Reports it was last drink 6 months ago. On admission bilirubin was high at 8.5 currently 7.6 and AST 129 up to 168 and ALT 61 down to 54. I talked to the patient about transferring her to another facility like [facility] for there is no GI service coverage in this facility. Patient declines. Risk and benefits explained. Patient blood pressure low normal, slightly tachycardic at 103. WBC was 25,000 currently 19.7, hemoglobin 9.4, creatinine trending down 2.6 down to 1.9 with baseline 0.6-0.[address] of the abdomen pelvis without contrast showing anasarca with ascites and bilateral pleural effusion and cholelithiasis Abdominal ultrasound showing marked ascites and mild cholelithiasis without acute cholecystitis 11/22 Patient is awake alert today, she feels tired. Jaundiced She complains from frequent bowel movement about 8/day, also abdominal pain with bowel movements only. However on exam she has right upper quadrant tenderness Her abdomen is much less distended. She is status post paracentesis yesterday with 6.7 L taken out, after the procedure she received 2 units of albumin. Blood pressure this morning 88/53 and labs showing hemoglobin 8.5. Creatinine trending down to 1.7 Liver enzymes and bilirubin slightly less than yesterday, with bilirubin 6.8, AST 144 and ALT 55 Blood culture pending Ascites cytology and culture pending C. difficile is requested and is pending Patient remains on daptomycin. Also she started on small dose of Lasix 20 mg twice daily. And low potassium been replaced Will give her another 2 doses of albumin today with close monitoring 11/23 Patient lying bed looks very tired and lethargic however mentation is at baseline fully awake and oriented She states her diarrhea is improved last night she did not have bowel movement till after 10 PM which was better. She still complains from mild abdominal pain and tenderness in the upper abdomen most likely due to her liver disease. No other new complaints. No chest pain or dyspnea. Leukocytosis at 18.5, hemoglobin 8.9, creatinine stable at 1.7. Liver enzymes are the same. She remains on IV daptomycin Eosinophilia is due to her VRE UTI as per hematology team. 11/24 Patient states her abdominal pain is better but not completely resolved, currently rated as 1/10, no nausea vomiting. She still picking up her appetite She has 1 bowel movement this morning she does not describe it as diarrhea but it is loose. Patient she is feeling dizzy whenever she sits up or stands up for about 2 minutes but then goes away, yesterday worked with her and today with the physical therapist through the hallway and she did well. She is already on Lasix 20 mg twice daily and she making good urine output. Blood pressure still low normal which is expected for her, she is currently kept on midodrine 5 mg Will add small dose of Aldactone 12.5 mg with close monitoring 11/25 pt is comfortable in bed, still very weak, no abdominal pain , but she feels gaseous in her abdomen. No overt abdominal pain. She had about 3 bowel movement which is acceptable for her. They are kind of loose but not watery. Yesterday the could not sent for C. difficile because it was more formed No chest pain or dyspnea. Patient still complaining from dysuria. Blood pressure is borderline Increase her Aldactone today to 25 mg daily. Continue with the current daptomycin. Labs from today are pending 11/26--- patient was seen and examined today. Continues complain of weakness. at bedside. PT/OT recommended subacute rehab, patient reluctant to go to rehab. Currently on daptomycin, infectious disease following. C. difficile pending. Vital stable. WBCs trending down 16.0 today, hemoglobin 9.0. Platelet 197. BUN/creatinine stable, slightly improved today. Nephrology following. Renal function stable, started on Lasix and Aldactone for cirrhosis. Assessment and plan: VRE UTI postural hypotension Alcoholic liver disease possible cirrhosis. With transaminitis and elevated bilirubin Acute kidney injury, improving Lactic acidemia, improved and lactic acid back to reference range at 1.9 Hypothyroidism Gastroesophageal reflux disease Chronic alcohol use disorder Fluid overload and anasarca most likely secondary to above Plan: Daptomycin, finished treatment. Urine culture grew VRE. Start the patient on Lasix for now and add small dose of Aldactone Monitor creatinine Follow-up cytology and culture from the ascites fluid on 11/21 Monitor blood pressure. midodrine 5 mg 3 times daily Nephrology consulted. Labs and medication were reviewed.. Continue same treatment. Continue with symptomatic treatment. Resume home medication. Monitor labs and vitals. DVT and GI prophylaxis. Further recommendations as per clinical course of the patient DVT prophylaxis: Subcutaneous heparin GI Prophylaxis: Pepcid PT/OT: Pending subacute rehab, patient reluctant to go to subacute rehab. PHYSICAL EXAMINATION: GENERAL: The patient is A&O x3, NAD HEENT: EOMI, Sclerae anicteric, Moist Mucous membranes Neck: Supple, Non tender, No JVD PULMONARY: Equal breath souds B/L, No wheezing, No crackles. CARDIOVASCULAR: S1, S2 present. No murmurs, rubs, or gallops. ABDOMEN: Soft, nontender, distended, normoactive bowel sounds. No guarding or rebound tenderness. MUSCULOSKELETAL: No edema, No cyanosis. No clubbing. Normal ROM. Intact peripheral pulses. NEUROLOGICAL: CN 2-12 grossly intact. No FND Skin: No Rash REVIEW OF SYSTEMS: CONSTITUTIONAL: No fever or chills. CARDIOVASCULAR: No chest pain, palpitations or syncope. PULMONARY: No shortness of breath, no cough, sore throat. GASTROINTESTINAL: No nausea, vomiting, diarrhea, abdominal pain. : No Dysuria, urgency, frequency. Extremities: No edema. NEUROLOGICAL: No headaches, no weakness, or numbness Dictation was produced using [employer] dictation software. please excuse any grammatical, word or spelling errors. Objective - Vital Signs Vital signs: Vital Signs Temp 98.5 F 11/26/24 08:00 Pulse 95 11/26/24 16:00 Resp 16 11/26/24 16:00 BP 94/63 11/26/24 16:00 Pulse Ox 100 11/26/24 16:00 FiO2 Intake & Output 11/25/24 11/26/24 11/26/24 18:59 06:59 18:59 Intake Total 945 120 Output Total 300 Balance 945 -300 120 Weight 72 kg Intake: Oral 945 120 Output: Urine 300 Other: Voiding Method External Catheter External Catheter External Catheter # Bowel Movements 1 1 - Labs CBC & Chem 7: 11/26/24 09:50 11/26/24 09:50 Labs: Abnormal Lab Results - Last 24 Hours (Table) 11/26/24 11/26/24 11/26/24 Range/Units 09:50 09:50 12:32 WBC 16.0 H (3.8-10.6) k/uL RBC 2.37 L (3.80-5.40) m/uL Hgb 9.0 L (11.4-16.0) gm/dL Hct 28.5 L (34.0-46.0) % MCV 120.5 H (80.0-100.0) fL MCH 38.2 H (25.0-35.0) pg Neutrophils # 11.9 H (1.3-7.7) k/uL Eosinophils # 1.5 H (0-0.7) k/uL Macrocytosis Marked A Sodium 136 L (137-145) mmol/L Carbon Dioxide 19 L (22-30) mmol/L BUN 34 H (7-17) mg/dL Creatinine 1.63 H (0.52-1.04) mg/dL Glucose 168 H (74-99) mg/dL Calcium 8.2 L (8.4-10.2) mg/dL Total Bilirubin 5.2 H (0.2-1.3) mg/dL Conjugated Bilirubin 0.8 H (0.0-0.3) mg/dL Unconjugated Bilirubin 1.2 H (0.0-1.1) mg/dL Delta Bilirubin 3.2 H (0.0-0.2) mg/dL AST 83 H (14-36) U/L ALT 43 H (4-34) U/L Alkaline Phosphatase 217 H (38-126) U/L Creatine Kinase <20 L (30-135) U/L Total Protein 4.7 L (6.3-8.2) g/dL Albumin 2.3 L (3.5-5.0) g/dL Microbiology - Last 24 Hours (Table) 11/21/24 15:08 Anaerobic Culture - Final Ascites Fluid 11/24/24 10:30 Urine Culture - Preliminary Urine,Voided Yeast species 11/21/24 15:08 Gram Stain - Final Ascites Fluid Body Fluid Culture - Final
[2024-11-27 04:01] VITALS: TEMP 97.8
[2024-11-27 09:07] VITALS: RESP 16
[2024-11-27 10:29] LABS: African American GFR (CKD) 46 (>60 ml/min/1.73 sqM); Anion Gap 10 mmol/L; Blood Urea Nitrogen 34 mg/dL (7-17); Calcium 8.2 mg/dL (8.4-10.2); Carbon Dioxide 19 mmol/L (22-30); Chloride 107 mmol/L (98-107); Glucose 134 mg/dL (74-99); Non-African American GFR(CKD) 40 (>60 ml/min/1.73 sqM); Potassium 3.4 mmol/L (3.5-5.1); Sodium 136 mmol/L (137-145)
--- NOTE | 2024-11-27 11:21 | P.PN ---
Subjective Progress Note Date: 11/27/24 Patient seen in follow-up for NOAH. Feeling weak but otherwise no new complaints. Vital signs are stable. General: No acute distress. HEENT: Head exam is unremarkable. LUNGS: No audible rhonchi or wheezes. HEART: Rate and Rhythm are regular. ABDOMEN: Nontender. +ascites EXTREMITITES: + edema. Objective - Vital Signs Vital signs: Vital Signs Temp 97.8 F 11/27/24 03:57 Pulse 117 H 11/27/24 08:00 Resp 16 11/27/24 08:00 BP 101/65 11/27/24 08:00 Pulse Ox 99 11/27/24 08:00 FiO2 Intake & Output 11/26/24 11/27/24 11/27/24 18:59 06:59 18:59 Intake Total 356 10 Output Total 400 300 Balance -44 -290 Weight 70.3 kg Intake: IV 10 Invasive Line 2 10 Oral 356 Output: Urine 400 300 Other: Voiding Method External Catheter External Catheter # Bowel Movements 1 - Labs CBC & Chem 7: 11/26/24 09:50 11/27/24 09:58 Labs: Abnormal Lab Results - Last 24 Hours (Table) 11/26/24 11/26/24 11/26/24 Range/Units 09:50 09:50 12:32 WBC 16.0 H (3.8-10.6) k/uL RBC 2.37 L (3.80-5.40) m/uL Hgb 9.0 L (11.4-16.0) gm/dL Hct 28.5 L (34.0-46.0) % MCV 120.5 H (80.0-100.0) fL MCH 38.2 H (25.0-35.0) pg Neutrophils # 11.9 H (1.3-7.7) k/uL Eosinophils # 1.5 H (0-0.7) k/uL Macrocytosis Marked A Sodium 136 L (137-145) mmol/L Carbon Dioxide 19 L (22-30) mmol/L BUN 34 H (7-17) mg/dL Creatinine 1.63 H (0.52-1.04) mg/dL Glucose 168 H (74-99) mg/dL Calcium 8.2 L (8.4-10.2) mg/dL Total Bilirubin 5.2 H (0.2-1.3) mg/dL Conjugated Bilirubin 0.8 H (0.0-0.3) mg/dL Unconjugated Bilirubin 1.2 H (0.0-1.1) mg/dL Delta Bilirubin 3.2 H (0.0-0.2) mg/dL AST 83 H (14-36) U/L ALT 43 H (4-34) U/L Alkaline Phosphatase 217 H (38-126) U/L Creatine Kinase <20 L (30-135) U/L Total Protein 4.7 L (6.3-8.2) g/dL Albumin 2.3 L (3.5-5.0) g/dL Microbiology - Last 24 Hours (Table) 11/24/24 10:30 Urine Culture - Final Urine,Voided Sia lusitaniae Assessment and Plan Assessment: 1. Non-oliguric NOAH due to ATN. Multifactorial from hypotension, sepsis. Baseline creatinine 0.7. Creatinine 5.2 11/10, presented here 2.6, improved 1.5 today. UA concerning for UTI. Renal US no hydronephrosis. CK not elevated. 2. VRE UTI 3. Alcoholic Cirrhosis 4. Hypokalemia. Improved with replacement 5. Metabolic Acidosis likely related to NOAH and cirrhosis. Plan: Continue supportive care, renal function appears stable. ABX per ID On Aldactone and PO Lasix for cirrhosis Monitor strict I/O's Doubt hepatorenal syndrome Continue midodrine for BP support Clear for discharge outpatient follow-up
[2024-11-27 12:33] VITALS: BP 112/69; PULSE 99
--- NOTE | 2024-11-27 12:33 | P.PN ---
Subjective Progress Note Date: 11/26/24 Principal diagnosis: Reason for follow-up is VRE UTI Patient is a 43-year-old female with a past medical history significant for reflux gallstone liver disease patient apparently has been dealing with UTI symptoms of burning of urine frequency some suprapubic discomfort. Failing outpatient oral antibiotic with outpatient culture positive for VRE. On today's evaluation that is 11/26/2024, patient did not have any fever and denies any chills, patient is breathing comfortably on room air, patient with no chest pain or cough patient did not have any abdominal pain nausea vomiting did have some loose stools urinary symptoms has improved Patient white count is down to 16,000, creatinine 1.63 Objective - Vital Signs Vital signs: Vital Signs Temp 98.5 F 11/26/24 08:00 Pulse 98 11/26/24 08:00 Resp 16 11/26/24 08:00 BP 107/74 11/26/24 08:00 Pulse Ox 100 11/26/24 08:00 FiO2 Intake & Output 11/25/24 11/26/24 11/26/24 18:59 06:59 18:59 Intake Total 945 Output Total 300 Balance 945 -300 Weight 72 kg Intake: Oral 945 Output: Urine 300 Other: Voiding Method External Catheter External Catheter External Catheter # Bowel Movements 1 - Exam GENERAL DESCRIPTION: Middle-age female lying in bed in no distress RESPIRATORY SYSTEM: Unlabored breathing , decreased breath sounds at bases HEART: S1 S2 regular rate and rhythm , ABDOMEN: Soft , no tenderness Patient has developed maculopapular rash mostly to the trunk - Labs CBC & Chem 7: 11/26/24 09:50 11/27/24 09:58 Labs: Abnormal Lab Results - Last 24 Hours (Table) 11/26/24 11/26/24 Range/Units 09:50 09:50 WBC 16.0 H (3.8-10.6) k/uL RBC 2.37 L (3.80-5.40) m/uL Hgb 9.0 L (11.4-16.0) gm/dL Hct 28.5 L (34.0-46.0) % MCV 120.5 H (80.0-100.0) fL MCH 38.2 H (25.0-35.0) pg Neutrophils # 11.9 H (1.3-7.7) k/uL Eosinophils # 1.5 H (0-0.7) k/uL Macrocytosis Marked A Sodium 136 L (137-145) mmol/L Carbon Dioxide 19 L (22-30) mmol/L BUN 34 H (7-17) mg/dL Creatinine 1.63 H (0.52-1.04) mg/dL Glucose 168 H (74-99) mg/dL Calcium 8.2 L (8.4-10.2) mg/dL Total Bilirubin 5.2 H (0.2-1.3) mg/dL Conjugated Bilirubin 0.8 H (0.0-0.3) mg/dL Unconjugated Bilirubin 1.2 H (0.0-1.1) mg/dL Delta Bilirubin 3.2 H (0.0-0.2) mg/dL AST 83 H (14-36) U/L ALT 43 H (4-34) U/L Alkaline Phosphatase 217 H (38-126) U/L Total Protein 4.7 L (6.3-8.2) g/dL Albumin 2.3 L (3.5-5.0) g/dL Microbiology - Last 24 Hours (Table) 11/21/24 15:08 Anaerobic Culture - Final Ascites Fluid 11/24/24 10:30 Urine Culture - Preliminary Urine,Voided Yeast species 11/21/24 15:08 Gram Stain - Final Ascites Fluid Body Fluid Culture - Final Assessment and Plan (1) Allergy to sulfa drugs Current Visit: Yes Status: Acute Code(s): Z88.2 - ALLERGY STATUS TO SULFONAMIDES SNOMED Code(s): 38053153 (2) Urinary tract infection Current Visit: Yes Status: Acute Code(s): N39.0 - URINARY TRACT INFECTION, SITE NOT SPECIFIED SNOMED Code(s): 03755691 (3) VRE (vancomycin resistant enterococcus) culture positive Current Visit: Yes Status: Acute Code(s): Z22.39 - CARRIER OF OTHER SPECIFIED BACTERIAL DISEASES SNOMED Code(s): 771688216 (4) Drug rash Current Visit: Yes Status: Acute Code(s): L27.0 - GEN SKIN ERUPTION DUE TO DRUGS AND MEDS TAKEN INTERNALLY SNOMED Code(s): 45010959 Plan: 1patient presented to hospital with urinary burning pressure elevated white count concerning for symptomatic UTI failing outpatient oral antibiotic therapy with urine culture recently done grew VRE 2-patient did have elevated white count more likely due to VRE UTI 3-patient ultrasound did not show any hydronephrosis or dilated CBD 4-patient repeat UA still positive culture currently growing Sia, we will discuss with daptomycin continue with the Diflucan 5patient also developed diarrhea, currently waiting for stool for C. difficile if positive will treat encouraged to increase her yogurt intake Dictation was produced using [employer] dictation software. please excuse any grammatical, word or spelling errors. Time with Patient: Less than 30
--- NOTE | 2024-11-27 12:34 | P.PN ---
Subjective Progress Note Date: 11/27/24 Principal diagnosis: Reason for follow-up is VRE UTI Patient is a 43-year-old female with a past medical history significant for reflux gallstone liver disease patient apparently has been dealing with UTI symptoms of burning of urine frequency some suprapubic discomfort. Failing outpatient oral antibiotic with outpatient culture positive for VRE. On today's evaluation that is 11/27/2024, Patient is afebrile patient is currently on room air and denies having any shortness of breath, the patient denies any chest pain or cough, the patient denies any nausea vomiting did not have any abdominal pain and did have resolution of her diarrhea mention soft bowel movement this morning. CBC was not done today creatinine is 1.56 Objective - Vital Signs Vital signs: Vital Signs Temp 97.8 F 11/27/24 03:57 Pulse 117 H 11/27/24 08:00 Resp 16 11/27/24 08:00 BP 101/65 11/27/24 08:00 Pulse Ox 99 11/27/24 08:00 FiO2 Intake & Output 11/26/24 11/27/24 11/27/24 18:59 06:59 18:59 Intake Total 356 10 Output Total 400 300 Balance -44 -290 Weight 70.3 kg Intake: IV 10 Invasive Line 2 10 Oral 356 Output: Urine 400 300 Other: Voiding Method External Catheter External Catheter # Bowel Movements 1 - Exam GENERAL DESCRIPTION: Middle-age female lying in bed in no distress RESPIRATORY SYSTEM: Unlabored breathing , decreased breath sounds at bases HEART: S1 S2 regular rate and rhythm , ABDOMEN: Soft , no tenderness Patient has developed maculopapular rash mostly to the trunk - Labs CBC & Chem 7: 11/26/24 09:50 11/27/24 09:58 Labs: Abnormal Lab Results - Last 24 Hours (Table) 11/26/24 11/26/24 11/26/24 Range/Units 09:50 09:50 12:32 WBC 16.0 H (3.8-10.6) k/uL RBC 2.37 L (3.80-5.40) m/uL Hgb 9.0 L (11.4-16.0) gm/dL Hct 28.5 L (34.0-46.0) % MCV 120.5 H (80.0-100.0) fL MCH 38.2 H (25.0-35.0) pg Neutrophils # 11.9 H (1.3-7.7) k/uL Eosinophils # 1.5 H (0-0.7) k/uL Macrocytosis Marked A Sodium 136 L (137-145) mmol/L Carbon Dioxide 19 L (22-30) mmol/L BUN 34 H (7-17) mg/dL Creatinine 1.63 H (0.52-1.04) mg/dL Glucose 168 H (74-99) mg/dL Calcium 8.2 L (8.4-10.2) mg/dL Total Bilirubin 5.2 H (0.2-1.3) mg/dL Conjugated Bilirubin 0.8 H (0.0-0.3) mg/dL Unconjugated Bilirubin 1.2 H (0.0-1.1) mg/dL Delta Bilirubin 3.2 H (0.0-0.2) mg/dL AST 83 H (14-36) U/L ALT 43 H (4-34) U/L Alkaline Phosphatase 217 H (38-126) U/L Creatine Kinase <20 L (30-135) U/L Total Protein 4.7 L (6.3-8.2) g/dL Albumin 2.3 L (3.5-5.0) g/dL Microbiology - Last 24 Hours (Table) 11/24/24 10:30 Urine Culture - Final Urine,Voided Sia lusitaniae Assessment and Plan (1) Allergy to sulfa drugs Current Visit: Yes Status: Acute Code(s): Z88.2 - ALLERGY STATUS TO SULFONAMIDES SNOMED Code(s): 50457549 (2) Urinary tract infection Current Visit: Yes Status: Acute Code(s): N39.0 - URINARY TRACT INFECTION, SITE NOT SPECIFIED SNOMED Code(s): 95336518 (3) VRE (vancomycin resistant enterococcus) culture positive Current Visit: Yes Status: Acute Code(s): Z22.39 - CARRIER OF OTHER SPECIFIED BACTERIAL DISEASES SNOMED Code(s): 654602206 (4) Drug rash Current Visit: Yes Status: Acute Code(s): L27.0 - GEN SKIN ERUPTION DUE TO DRUGS AND MEDS TAKEN INTERNALLY SNOMED Code(s): 49444096 Plan: 1patient presented to hospital with urinary burning pressure elevated white count concerning for symptomatic UTI failing outpatient oral antibiotic therapy with urine culture recently done grew VRE 2-patient did have elevated white count more likely due to VRE UTI 3-patient ultrasound did not show any hydronephrosis or dilated CBD 4-patient repeat UA still positive culture currently growing Sia, patient is on Diflucan to continue for about a week on discharge 5diarrhea possible antibiotic associated did have improvement in her diarrhea, after discussion of daptomycin, no need to check for stool for C. difficile or any specific treatment for it Dictation was produced using [employer] dictation software. please excuse any grammatical, word or spelling errors. Time with Patient: Less than 30
--- NOTE | 2024-11-27 15:17 | P.DS ---
Providers Date of admission: 11/18/24 20:42 Expected date of discharge: 11/27/24 Attending physician: Estrella Bashir Consults: 11/18/24 20:42 Consult Physician Routine Consulting Provider: Abdias Monterroso Consult Reason/Comments: UTI, VRE Do you want consulting provider notified?: Already Contacted 11/22/24 10:31 Consult Physician Urgent Consulting Provider: Branden Khalil Consult Reason/Comments: anemia, esoniphilia Do you want consulting provider notified?: Yes 11/26/24 11:05 Consult Physician Routine Consulting Provider: Luz Maria Grider Consult Reason/Comments: NOAH Do you want consulting provider notified?: Yes Primary care physician: Catracho Sevilla Hospital Course: discharge diagnoses: VRE UTI --- treated with daptomycin during hospitalization, finished treatment Urine culture growing yeast, continue on Diflucan for 1 week at discharge per infectious disease recommendation. Postural hypotension: Continue midodrine. Alcoholic liver disease possible cirrhosis. With transaminitis and elevated bilirubin Acute kidney injury, improving--- nephrology consulted, appreciate recs, renal function stable. Lactic acidemia, improved and lactic acid back to reference range at 1.9 Hypothyroidism Gastroesophageal reflux disease Chronic alcohol use disorder Fluid overload and anasarca most likely secondary to above Hospital course: 43-year-old female presenting for evaluation of lower abdominal pain, and diagnosis of drug-resistant urinary tract infection. Patient had urinalysis and urine culture on the and was informed that she had to come to the emergency department for IV antibiotics. Patient has history of liver failure and had recent admission at outside hospital with GI consultation. She is a previous drinker quit approximately 4 months ago. No surgical intervention was performed according to the patient while she was at [facility] and she was subsequently discharged. She denies fever. Reports lower abdominal pain and dysuria. Patient denies any upper abdominal pain. Blood work completed in ED reveals a WBC of 21.3, hemoglobin of 11.3 and platelet count of 276, INR 1.3, sodium 142, potassium 3.5, BUNs/creatinine of 99/2.63, lactic acid of 2.5, total bilirubin elevated at 8.5, AST of 129, ALT 61, amylase of 71, lipase 313, EKG reveals sinus rhythm rate of 97, TX interval 143, QRS duration 84, QTc [address] segment elevation. CT abdomen pelvis showing cholelithiasis, anasarca, no definitive acute process in the lower abdomen. 11/21 6 patient awake and alert, she is pleasant 43 years old female who was sent initially for UTI with resistant microorganism. Also patient was noticed to have abdominal pain and jaundice on admission Patient's was admitted with VRE UTI, she has been evaluated by ID team and started on daptomycin Also patient was noted to have anasarca and significant ascites and leg edema most likely secondary to liver disease. Patient states that she has been seen GI doctors before but not sure if it was in the office or the hospital, she is not sure what kind of liver disease she has. Patient has history of heavy alcohol drinking. Reports it was last drink 6 months ago. On admission bilirubin was high at 8.5 currently 7.6 and AST 129 up to 168 and ALT 61 down to 54. I talked to the patient about transferring her to another facility like [facility] for there is no GI service coverage in this facility. Patient declines. Risk and benefits explained. Patient blood pressure low normal, slightly tachycardic at 103. WBC was 25,000 currently 19.7, hemoglobin 9.4, creatinine trending down 2.6 down to 1.9 with baseline 0.6-0.[address] of the abdomen pelvis without contrast showing anasarca with ascites and bilateral pleural effusion and cholelithiasis Abdominal ultrasound showing marked ascites and mild cholelithiasis without acute cholecystitis 11/22 Patient is awake alert today, she feels tired. Jaundiced She complains from frequent bowel movement about 8/day, also abdominal pain with bowel movements only. However on exam she has right upper quadrant tenderness Her abdomen is much less distended. She is status post paracentesis yesterday with 6.7 L taken out, after the procedure she received 2 units of albumin. Blood pressure this morning 88/53 and labs showing hemoglobin 8.5. Creatinine trending down to 1.7 Liver enzymes and bilirubin slightly less than yesterday, with bilirubin 6.8, AST 144 and ALT 55 Blood culture pending Ascites cytology and culture pending C. difficile is requested and is pending Patient remains on daptomycin. Also she started on small dose of Lasix 20 mg twice daily. And low potassium been replaced Will give her another 2 doses of albumin today with close monitoring 11/23 Patient lying bed looks very tired and lethargic however mentation is at baseline fully awake and oriented She states her diarrhea is improved last night she did not have bowel movement till after 10 PM which was better. She still complains from mild abdominal pain and tenderness in the upper abdomen most likely due to her liver disease. No other new complaints. No chest pain or dyspnea. Leukocytosis at 18.5, hemoglobin 8.9, creatinine stable at 1.7. Liver enzymes are the same. She remains on IV daptomycin Eosinophilia is due to her VRE UTI as per hematology team. 11/24 Patient states her abdominal pain is better but not completely resolved, currently rated as 1/10, no nausea vomiting. She still picking up her appetite She has 1 bowel movement this morning she does not describe it as diarrhea but it is loose. Patient she is feeling dizzy whenever she sits up or stands up for about 2 minutes but then goes away, yesterday worked with her and today with the physical therapist through the hallway and she did well. She is already on Lasix 20 mg twice daily and she making good urine output. Blood pressure still low normal which is expected for her, she is currently kept on midodrine 5 mg Will add small dose of Aldactone 12.5 mg with close monitoring 11/25 pt is comfortable in bed, still very weak, no abdominal pain , but she feels gaseous in her abdomen. No overt abdominal pain. She had about 3 bowel movement which is acceptable for her. They are kind of loose but not watery. Yesterday the could not sent for C. difficile because it was more formed No chest pain or dyspnea. Patient still complaining from dysuria. Blood pressure is borderline Increase her Aldactone today to 25 mg daily. Continue with the current daptomycin. Labs from today are pending 11/26--- patient was seen and examined today. Continues complain of weakness. at bedside. PT/OT recommended subacute rehab, patient reluctant to go to rehab. Currently on daptomycin, infectious disease following. C. difficile pending. Vital stable. WBCs trending down 16.0 today, hemoglobin 9.0. Platelet 197. BUN/creatinine stable, slightly improved today. Nephrology following. Renal function stable, started on Lasix and Aldactone for cirrhosis. 11/26/patient was doing well, diarrhea remained resolved. Patient declined subacute rehab, discharged home with home and services. at bedside. Patient continued on Lasix and Aldactone at discharge. Continue Diflucan for 1 week at discharge per infectious disease. Repeat CBC and BMP to be checked by PCP in 1 week Follow-up with PCP in 1 week. PHYSICAL EXAMINATION: GENERAL: The patient is A&O x3, NAD HEENT: EOMI, Sclerae anicteric, Moist Mucous membranes Neck: Supple, Non tender, No JVD PULMONARY: Equal breath souds B/L, No wheezing, No crackles. CARDIOVASCULAR: S1, S2 present. No murmurs, rubs, or gallops. ABDOMEN: Soft, nontender, nondistended, normoactive bowel sounds. No guarding or rebound tenderness. MUSCULOSKELETAL: + edema, No cyanosis. No clubbing. Normal ROM. Intact peripheral pulses. NEUROLOGICAL: CN 2-12 grossly intact. No FND SKIN: No rashes. Dictation was produced using [employer] dictation software. please excuse any grammatical, word or spelling errors. Patient Condition at Discharge: Fair Plan - Discharge Summary Discharge Rx Participant: Yes New Discharge Prescriptions: New Fluconazole [Diflucan] 100 mg PO DAILY #7 tab Spironolactone [Aldactone] 25 mg PO DAILY #30 tab Furosemide [Lasix] 20 mg PO BID@0900,1600 #60 tab Continue Thiamine [Vitamin B-1] 100 mg PO DAILY Ondansetron [Zofran] 4 mg PO Q8HR PRN PRN Reason: Nausea Multivitamins, Thera [Multivitamin (formulary)] 1 tab PO DAILY Midodrine [ProAmatine] 10 mg PO TID PRN PRN Reason: low bp traMADol HCL 50 mg PO Q6H PRN PRN Reason: Pain Levothyroxine Sodium [Synthroid] 25 mcg PO DAILY Pantoprazole [Protonix] 40 mg PO DAILY Folic Acid 1 mg PO DAILY Discharge Medication List Levothyroxine Sodium [Synthroid] 25 mcg PO DAILY 10/25/24 [History] Folic Acid 1 mg PO DAILY 11/19/24 [History] Midodrine [ProAmatine] 10 mg PO TID PRN 11/19/24 [History] Multivitamins, Thera [Multivitamin (formulary)] 1 tab PO DAILY 11/19/24 [History] Ondansetron [Zofran] 4 mg PO Q8HR PRN 11/19/24 [History] Pantoprazole [Protonix] 40 mg PO DAILY 11/19/24 [History] Thiamine [Vitamin B-1] 100 mg PO DAILY 11/19/24 [History] traMADol HCL 50 mg PO Q6H PRN 11/19/24 [History] Fluconazole [Diflucan] 100 mg PO DAILY #7 tab 11/27/24 [Rx] Furosemide [Lasix] 20 mg PO BID@0900,1600 #60 tab 11/27/24 [Rx] Spironolactone [Aldactone] 25 mg PO DAILY #30 tab 11/27/24 [Rx] Follow up Appointment(s)/Referral(s): Catracho Sevilla DO [Primary Care Provider] - 1-2 days Discharge Disposition: HOME WITH HOME HEALTH SERVICES
== END 2024-11-27 16:26 | disposition home health service (06) | DRG 871 ==
LOC: EC 17:29 → 3SCARD 20:42
PROVIDERS: ADMIT Internal Medicine; ATTEND Internal Medicine
PROC: 0W9G3ZZ Drainage of Peritoneal Cavity, Percutaneous Approach (ICD-10-PCS; principal; 2024-11-21)
DX: A41.81 Sepsis due to Enterococcus (principal); N17.0 Acute kidney failure with tubular necrosis; E87.20 Acidosis, unspecified; J90 Pleural effusion, not elsewhere classified; Z16.21 Resistance to vancomycin; B37.7 Candidal sepsis; L27.0 Generalized skin eruption due to drugs and medicaments taken internally; B95.2 Enterococcus as the cause of diseases classified elsewhere; K70.9 Alcoholic liver disease, unspecified; N18.9 Chronic kidney disease, unspecified; E03.9 Hypothyroidism, unspecified; Z79.890 Hormone replacement therapy; E87.70 Fluid overload, unspecified; K21.9 Gastro-esophageal reflux disease without esophagitis; K80.20 Calculus of gallbladder without cholecystitis without obstruction; D53.9 Nutritional anemia, unspecified; K70.31 Alcoholic cirrhosis of liver with ascites; D72.18 Eosinophilia in diseases classified elsewhere; E87.6 Hypokalemia; I95.1 Orthostatic hypotension; Z88.2 Allergy status to sulfonamides; Z79.899 Other long term (current) drug therapy; Z88.1 Allergy status to other antibiotic agents; X58.XXXA Exposure to other specified factors, initial encounter; I95.9 Hypotension, unspecified; F10.10 Alcohol abuse, uncomplicated; Z71.41 Alcohol abuse counseling and surveillance of alcoholic; T40.2X5A Adverse effect of other opioids, initial encounter; Z87.19 Personal history of other diseases of the digestive system
CPT/HCPCS: 36415; 49083; 74176; 76700; 80048; 80053; 80076; 81001; 82150; 82550; 82607; 82728; 82746; 83540; 83550; 83605; 83690; 83735; 84703; 85025; 85610; 85730; 86140; 87040; 87070; 87075; 87086; 87205; 88108; 88305; 89050; 93005; 96361; 96365; 96375; 99285

== ENCOUNTER 2024-12-14 08:29 | Day surgery (SDC) | payer BC ==
[2024-12-14 09:18] LABS: Mean Platelet Volume 7.9; Platelet Count 284 k/uL (150-450)
[2024-12-14 09:22] VITALS: RESP 16; TEMP 98.1
[2024-12-14 09:24] LABS: INR 1.3 (<1.2); Prothrombin Time 14.1 sec (10.0-12.5)
[2024-12-14 09:26] LABS: African American GFR (CKD) 70 (>60 ml/min/1.73 sqM); Non-African American GFR(CKD) 60 (>60 ml/min/1.73 sqM)
[2024-12-14] MEDS: ALBUMIN HUMAN 25% 50 ML in EMPTY BAG 1 BAG IVPB SCH (09:40)
[2024-12-14 10:53] VITALS: BP 95/56; PULSE 75
--- NOTE | 2024-12-14 22:47 | US ---
EXAMINATION TYPE: US paracentesis abd w/image DATE OF EXAM: 11/21/2024 2:47 PM COMPARISON: Prior study November 21, 2024 CLINICAL INDICATION: Female, 43 years old with history of Ascites; , ascites TECHNIQUE/FINDINGS: The procedure was discussed with the patient. The risks, complications, benefits, and alternatives we re discussed and any questions were answered. Informed consent was obtained. The patient was placed supine on the ultrasound table and prepped and draped in the usual sterile fas hion. All elements of maximal barrier technique were utilized. Under ultrasound guidance, access into the right lower quadrant was obtained, via the 5 [place] safety centesis catheter system. Approximately 5.8 liters of straw-colored fluid was removed. The patient was stable throughout the pr ocedure and remained stable upon discharge from Department of Radiology. IMPRESSION: Successful therapeutic paracentesis under ultrasound guidance. [facility], , 12/14/2024 10:45 PM
== END 2024-12-14 10:55 | disposition home or self-care (01) ==
LOC: RADPROMAIN 08:29
PROVIDERS: ATTEND Family Medicine
DX: R18.8 Other ascites (principal)
CPT/HCPCS: 82565; 85049; 85610; 36415; 49083; P9047